=== PATIENT | male | born 1930 | race African-American/Black ===

== ENCOUNTER 2018-10-20 19:20 | Inpatient (IN) ==
[2018-10-20] MEDS ORDERED: CARDIZEM IV ONE (19:36)
[2018-10-20] MEDS ORDERED: DUONEB (A & A) INH ONE (19:37)
[2018-10-20] MEDS ORDERED: CARDIZEM 125 MG in NS 100 ML IV SCH (19:45)
[2018-10-20 19:56] LABS: BASO# 0.01 X1000 (0.0-0.2); BASO% 0.2 % (0.0-0.8); EOS# 0.04 X1000 (0.0-0.7); EOS% 0.7 % (0.0-10.0); HEMATOCRIT 34.9 % (42.0-52.0); HEMOGLOBIN 11.2 g/dL (14.0-18.0); IMM GRAN# 0.02 X1000 (0.0-0.04); IMM GRAN% 0.3 % (0.0-0.5); LYMPH# 0.67 X1000 (1.2-3.4); LYMPH% 11.4 % (20.5-51.1); MCHC 32.1 g/dL (33-37); MCV 99.7 FL (81-99); MONO# 0.76 X1000 (0.11-0.59); MONO% 12.9 % (1.7-9.3); MPV 10.2 FL (7.4-10.4); NEUT# 4.38 X1000 (1.4-6.5); NEUT% 74.5 % (42.2-75.2); PLT 201 X1000 (130-400); RDW 15.2 % (11.5-14.5); WBC 5.88 X1000 (4.8-10.8)
[2018-10-20 20:04] LABS: INR 1.12; PROTIME 15.3 Seconds (11.0-16.0)
[2018-10-20 20:05] LABS: ALLEN TEST YES; BE 1.9 mmoll (-3.0-3.0); BLOOD TYPE ARTERIAL; HCO3-(ACT) 26.4 mmoll (20.0-26.0); METHB 1.4 % (0.0-1.5); O2(CT) 15.1 mL/dL (15.0-23.0); O2HB 95.8 % (95.0-99.0); PCO2(98.6) 36 mmHg (35-45); PO2(98.6) 99 mmHg (60-100); SAMPLE BLOOD; SAO2 99.5 % (95.0-100.0); THB 11.1 g/dL (11.5-17.4); pH(98.6) 7.46 (7.35-7.45)
[2018-10-20 20:06] LABS: MODALITY CANNULA
[2018-10-20 20:16] LABS: AGAP 14; ALB/GLOB RATIO 0.9; ALBUMIN 3.5 g/dL (3.5-5.0); ALKALINE PHOSPHATASE 106 U/L (32-122); BUN 16 mg/dL (8-22); CHLORIDE 105 mmol/L (98-107); CK PROFILE 120 U/L (24-204); COSMO 291; CREATININE 1.3 mg/dL (0.7-1.2); ESTIMATED GFR > 60; GLUCOSE 161 mg/dL (70-104); GOT 23 U/L (10-34); GPT 12 U/L (10-44); POTASSIUM 3.5 mmol/L (3.5-5.1); SODIUM 144 mmol/L (136-145); TCO2 25 mmol/L (25-35); TOTAL BILIRUBIN 0.74 mg/dL (0.20-1.00); TOTAL PROTEIN 7.2 g/dL (6.3-8.3)
--- NOTE | 2018-10-20 20:41 | Diag Imaging Result Doc PS360 ---
CHEST-PORTABLE - 10/20/2018 INDICATION: CP/SOB COMPARISON: 08/20/2018 FINDINGS: Stable dense opacification of the right lung apex, with the appearance of a mass. There is stable cardiomegaly and significant pulmonary vascular congestion. There is slight worsening in the hazy background interstitial pulmonary edema. No pneumothorax or large pleural effusion. IMPRESSION: Slight worsening in the hazy pulmonary edema. Electronically signed by Lucas Us 10/20/2018 8:39 PM
[2018-10-20] MEDS ORDERED: LASIX IV ONE (21:40)
[2018-10-20 21:55] LABS: URINE SOURCE CLEAN CATCH
[2018-10-20] MEDS ORDERED: TYLENOL PO ONE (21:58)
[2018-10-20 22:12] LABS: BILIRUBIN URINE NEGATIVE (NEGATIVE); BLOOD URINE SMALL (NEGATIVE); COLOR YELLOW; GLUCOSE URINE TRACE mg/dL (NEGATIVE); KETONE URINE NEGATIVE (NEGATIVE); LEUKOCYTES URINE NEGATIVE (NEGATIVE); NITRITE URINE NEGATIVE (NEGATIVE); PH URINE 6.5; PROTEIN URINE 200 mg/dL (NEGATIVE); SP GRAVITY URINE 1.017; TURBIDITY URINE CLEAR (CLEAR); UR EPITHELIAL CELLS <10 /HPF (<10); URINE BACTERIA NEGATIVE /HPF; URINE RBC <10 /HPF (<10); URINE WBC <10 /HPF (<10); UROBILINOGEN URINE NORMAL (NORMAL)
[2018-10-20] MEDS ORDERED: CARDIZEM PO ONE (22:21)
--- NOTE | 2018-10-20 22:38 | PROVIDER DOCUMENTATION ---
This chart was entered by Kristian Alvarado Scribe, acting as scribe for Stanton Perez MD. HPI-Respiratory General - General Stated Complaint: CHEST PAIN Time Seen by Provider: 10/20/18 19:32 Source: patient Allergies/Adverse Reactions: Patient Allergies Allergy/AdvReac Type Severity Reaction Status Date / Time No Known Allergies Allergy Verified 08/20/18 10:41 Home Medications: Home Medication List Medication Instructions Recorded Confirmed Last Taken Type Apixaban [Eliquis] 2.5 mg PO BID 10/08/17 10/20/18 05/27/18 21:00 History Cilostazol 100 mg PO BID 10/08/17 10/20/18 01/31/18 10:00 History Pantoprazole [Protonix] 40 mg PO DAILY@0700 10/08/17 10/20/18 05/27/18 09:00 History Simvastatin 20 mg PO HS 10/08/17 10/20/18 05/27/18 21:00 History Losartan [Cozaar] 50 mg PO BID tablet 04/27/18 10/20/18 05/27/18 21:00 Rx Zinc Sulfate 220 mg PO BID capsule 04/27/18 10/20/18 05/27/18 21:00 Rx Furosemide [Lasix] 10 mg PO DAILY 08/20/18 10/20/18 Unknown History Isosorbide Mononitrate [Isosorbide 30 mg PO BID 08/20/18 10/20/18 Unknown History Mononitrate ER] Metoprolol Tartrate 25 mg PO DAILY 08/20/18 10/20/18 Unknown History Apixaban [Eliquis] 2.5 mg PO BID #60 tab 10/20/18 Unknown Rx Cilostazol 100 mg PO BID #60 tab 10/20/18 Unknown Rx Diltiazem C.d. [Cardizem C.d] 240 mg PO DAILY #30 cap 10/20/18 Unknown Rx Furosemide [Lasix] 40 mg PO DAILY #30 tab 10/20/18 Unknown Rx Guaifenesin/Dextromethorphan 1 each PO DAILY 10/20/18 10/20/18 Unknown History [Mucinex Dm ER 600-30 mg Tablet] Losartan [Cozaar] 50 mg PO BID #60 tab 10/20/18 Unknown Rx Pantoprazole [Protonix] 40 mg PO DAILY@0700 #30 tab 10/20/18 Unknown Rx Phenylephrine/Dm/Acetaminop/GG 180 ml PO Q4-6H PRN PRN 10/20/18 10/20/18 Unknown History [Mucinex Fast-Max Cold-Flu Liq] - History of Present Illness-Resp Nature of Presenting Problem: Pt is a 88 y/o M presents to the ED with SOB for a couple weeks that worsened today. He reports home O2 2L. He says his chest pain is across his chest and feels like pressure. EMS reports a hx of lung cancer but says it is in remission. Quality of Pain: reports: pressure Severity in ED: reports: severe Onset/Duration: reports: other (2 weeks) Timing: reports: getting worse Cough Quality/Degree: reports: mild, dry cough Current Respiratory Medication Therapy: Initiated see nurses note Modifying Factors: improves with: nothing Associated Symptoms: reports: hurts to breathe, hyperventilating, shortness of breath. denies: cough, dizziness, fever/chills Similar Symptoms Previously?: No Recently seen or treated by another doctor?: No Review of Systems - Adult - REVIEW OF SYSTEMS - ADULT Constitutional: denies: chills, fever Eyes: reports: no symptoms reported Ears, Nose, Mouth & Throat: reports: no symptoms reported Cardiovascular: reports: chest pain, edema. denies: palpitations Respiratory: reports: cough, shortness of breath, wheezing Gastrointestinal: denies: nausea, vomiting Genitourinary: denies: dysuria, discharge Musculoskeletal: denies: back pain, neck pain Integumentary: reports: no symptoms reported Neurological: denies: dizziness/vertigo, headache/migraines, slurred speech Psychiatric: reports: no symptoms reported Endocrine: reports: no symptoms reported Hematologic/Lymphatic: reports: no symptoms reported Allergic/Immunologic: reports: no symptoms reported All Other Systems: Reviewed and Negative Past History - Adult - PAST MEDICAL HISTORY-ADULT Review of Records: reports: Old Records Reviewed, Nursing Assessment Review, Medications Reviewed Major Childhood Illnesses: reports: denies history Cardiovascular: reports: A-Fib, CAD, CHF, HTN, hyperlipidemia, PAD Respiratory: reports: cancer Gastrointestinal: reports: denies history Obstetrical/Gynecological: reports: denies history Genitourinary: reports: denies history Musculoskeletal: reports: arthritis, other (gout) Neurological: reports: CVA Psychiatric: reports: denies history Endocrine/Immune: reports: denies history Other Conditions: reports: denies history - PRIOR SURGERIES/PROCEDURES Surgical/Procedure History: reports: cardiac stent, orthopedic (extremity) ( right foot), other (Stents) - PRIOR HOSPITALIZATIONS Prior Hospitalizations: reports: none - IMMUNIZATION STATUS Childhood Immunizations: See Nurse Assessment Flu Vaccine: See Nurse Assessment - FAMILY HISTORY Family History: reviewed, not pertinent - SOCIAL HISTORY Smoking: non-smoker (pt quits smoking 23 years ago but smoke for 55 years.) Substance Use: none/never Living Situation: family Physical Exam-General - PHYSICAL EXAM-ADULT Initial Vital Signs Reviewed: Yes - CONSTITUTIONAL General Appearance: alert, mild distress. negative: appears well (unable to complete sentences. ill in appearance) - EYES Eyes: PERRL/EOMI, pink conjunctivae - HEAD, EARS, NOSE, MOUTH & THROAT HENMT: moist mucous membranes, normal ENT inspection - NECK Neck: full range of motion, supple, other (distended neck veins) - RESPIRATORY Respiratory: accessory muscle use, wheezing, increased rate - CARDIOVASCULAR Cardiovascular: normal peripheral pulses. negative: regular rate, rhythm (A-fib ) - GASTROINTESTINAL (ABDOMEN) Abdominal Exam: normal bowel sounds, non tender, soft - MUSCULOSKELETAL Back Exam: normal inspection, no CVA tenderness, no vertebral tenderness Extremity: normal range of motion, pedal edema (2+) - SKIN Integumentary: normal color, normal turgor, warm/dry - NEUROLOGIC Neurologic: grossly normal, no motor/sensory deficits - PSYCHIATRIC Psych/Mental Status: normal mood/affect, normal thought content, normal thought process, oriented x 3 Progress - PLAN OF CARE/RESULTS Progress/Plan/Lab Results: Vital Signs - 8 hr 10/20/18 19:15 10/20/18 19:26 10/20/18 19:27 Temperature 101.2 F H Pulse Rate 123 H 106 H 112 H Respiratory Rate 30 H 12 24 Blood Pressure 140/106 162/108 O2 Sat by Pulse Oximetry 100 94 L 10/20/18 19:31 10/20/18 19:32 10/20/18 19:34 Temperature 101.6 F H Pulse Rate 125 H 114 H 122 H Respiratory Rate 33 H 24 30 H Blood Pressure 140/106 162/108 O2 Sat by Pulse Oximetry 99 97 10/20/18 19:40 10/20/18 19:46 10/20/18 19:50 Temperature Pulse Rate 115 H 115 H 85 Respiratory Rate 24 26 H 26 H Blood Pressure 151/97 O2 Sat by Pulse Oximetry 10/20/18 20:00 10/20/18 20:02 10/20/18 20:07 Temperature Pulse Rate 90 89 122 H Respiratory Rate 23 Blood Pressure 147/113 O2 Sat by Pulse Oximetry 100 100 98 10/20/18 20:10 10/20/18 20:16 10/20/18 20:20 Temperature Pulse Rate 107 H 107 H 103 H Respiratory Rate Blood Pressure 167/108 O2 Sat by Pulse Oximetry 10/20/18 20:30 10/20/18 20:31 10/20/18 20:40 Temperature Pulse Rate 113 H 110 H 104 H Respiratory Rate 28 H 27 H 20 Blood Pressure 181/100 O2 Sat by Pulse Oximetry 92 L 97 93 L 10/20/18 20:50 10/20/18 21:00 10/20/18 21:01 Temperature Pulse Rate 110 H 114 H 110 H Respiratory Rate 28 H 22 30 H Blood Pressure 175/101 O2 Sat by Pulse Oximetry 99 92 L 96 10/20/18 21:10 10/20/18 21:20 10/20/18 21:21 Temperature Pulse Rate 109 H 114 H 116 H Respiratory Rate 20 24 24 Blood Pressure 180/106 O2 Sat by Pulse Oximetry 100 10/20/18 21:30 10/20/18 21:31 10/20/18 21:40 Temperature Pulse Rate 110 H 115 H 102 H Respiratory Rate 30 H 27 H 25 H Blood Pressure 152/89 O2 Sat by Pulse Oximetry 98 98 10/20/18 21:50 Temperature Pulse Rate 98 H Respiratory Rate 25 H Blood Pressure O2 Sat by Pulse Oximetry 90 L Laboratory Results - last 24 hr 10/20/18 10/20/18 10/20/18 19:30 19:30 19:30 WBC 5.88 RBC 3.50 L Hgb 11.2 L Hct 34.9 L MCV 99.7 H MCH 32.0 H MCHC 32.1 L RDW Std Deviation 15.2 H Plt Count 201 MPV 10.2 Immature Gran % (Auto) 0.3 Neut % (Auto) 74.5 Lymph % (Auto) 11.4 L [place] % (Auto) 12.9 H Eos % (Auto) 0.7 Baso % (Auto) 0.2 Immature Gran # (Auto) 0.02 Neut # (Auto) 4.38 Lymph # (Auto) 0.67 L [place] # (Auto) 0.76 H Eos # (Auto) 0.04 Baso # (Auto) 0.01 PT 15.3 INR 1.12 PTT (Actin FS) 36.0 Specimen Type Sample Site pH pCO2 pO2 HCO3 Base Excess Oxyhemoglobin ABG O2 Sat (Calculated) ABG O2 Saturation ABG Carboxyhemoglobin ABG Methemoglobin [place] Test A-a O2 Difference Total Hemoglobin Lactate Liter Flow Blood Gas Modality FiO2 % Sodium 144 Potassium 3.5 Chloride 105 Carbon Dioxide 25 Anion Gap 14 BUN 16 Creatinine 1.3 H Estimated GFR/1.73 m2 > 60 BUN/Creatinine Ratio 12 Glucose 161 H Calculated Osmolality 291 Calcium 9.0 Magnesium Total Bilirubin 0.74 AST 23 ALT 12 Alkaline Phosphatase 106 Creatine Kinase 120 Troponin T [id number] Pept Total Protein 7.2 Albumin 3.5 Globulin 3.7 Albumin/Globulin Ratio 0.9 Plasma Lactate Urine Source Urine Color Urine Turbidity Urine pH Ur Specific [place] Urine Protein Ur Glucose (Stick) Ur Ketones (Stick) Urine Blood Urine Nitrite Urine Bilirubin Urobilinogen Dipstick Urine Leukocytes Urine WBC (Auto) Urine RBC (Auto) U Epithel Cells (Auto) Urine Bacteria (Auto) 10/20/18 10/20/18 10/20/18 19:30 19:30 19:30 WBC RBC Hgb Hct MCV MCH MCHC RDW Std Deviation Plt Count MPV Immature Gran % (Auto) Neut % (Auto) Lymph % (Auto) [place] % (Auto) Eos % (Auto) Baso % (Auto) Immature Gran # (Auto) Neut # (Auto) Lymph # (Auto) [place] # (Auto) Eos # (Auto) Baso # (Auto) PT INR PTT (Actin FS) Specimen Type Sample Site pH pCO2 pO2 HCO3 Base Excess Oxyhemoglobin ABG O2 Sat (Calculated) ABG O2 Saturation ABG Carboxyhemoglobin ABG Methemoglobin [place] Test A-a O2 Difference Total Hemoglobin Lactate Liter Flow Blood Gas Modality FiO2 % Sodium Potassium Chloride Carbon Dioxide Anion Gap BUN Creatinine Estimated GFR/1.73 m2 BUN/Creatinine Ratio Glucose Calculated Osmolality Calcium Magnesium 1.5 Total Bilirubin AST ALT Alkaline Phosphatase Creatine Kinase Troponin T 0.066 [id number]-[id number] Pept 3128 H Total Protein Albumin Globulin Albumin/Globulin Ratio Plasma Lactate Urine Source Urine Color Urine Turbidity Urine pH Ur Specific [place] Urine Protein Ur Glucose (Stick) Ur Ketones (Stick) Urine Blood Urine Nitrite Urine Bilirubin Urobilinogen Dipstick Urine Leukocytes Urine WBC (Auto) Urine RBC (Auto) U Epithel Cells (Auto) Urine Bacteria (Auto) 10/20/18 10/20/18 10/20/18 19:35 19:55 21:21 WBC RBC Hgb Hct MCV MCH MCHC RDW Std Deviation Plt Count MPV Immature Gran % (Auto) Neut % (Auto) Lymph % (Auto) [place] % (Auto) Eos % (Auto) Baso % (Auto) Immature Gran # (Auto) Neut # (Auto) Lymph # (Auto) [place] # (Auto) Eos # (Auto) Baso # (Auto) PT INR PTT (Actin FS) Specimen Type ARTERIAL Sample Site R RADIAL pH 7.46 H pCO2 36 pO2 99 HCO3 26.4 H Base Excess 1.9 Oxyhemoglobin 95.8 ABG O2 Sat (Calculated) 15.1 ABG O2 Saturation 99.5 ABG Carboxyhemoglobin 2.30 ABG Methemoglobin 1.4 [place] Test YES A-a O2 Difference 56.0 Total Hemoglobin 11.1 L Lactate 1.40 Liter Flow 2.0 Blood Gas Modality CANNULA FiO2 % 28.0 Sodium Potassium Chloride Carbon Dioxide Anion Gap BUN Creatinine Estimated GFR/1.73 m2 BUN/Creatinine Ratio Glucose Calculated Osmolality Calcium Magnesium Total Bilirubin AST ALT Alkaline Phosphatase Creatine Kinase Troponin T Lxr-S-Hxejxrgclqc Pept Total Protein Albumin Globulin Albumin/Globulin Ratio Plasma Lactate 1.4 Urine Source CLEAN CATCH Urine Color YELLOW Urine Turbidity CLEAR Urine pH 6.5 Ur Specific [place] 1.017 Urine Protein 200 A Ur Glucose (Stick) TRACE Ur Ketones (Stick) NEGATIVE Urine Blood SMALL A Urine Nitrite NEGATIVE Urine Bilirubin NEGATIVE Urobilinogen Dipstick NORMAL Urine Leukocytes NEGATIVE Urine WBC (Auto) <10 Urine RBC (Auto) <10 U Epithel Cells (Auto) <10 Urine Bacteria (Auto) NEGATIVE Orders Category Date Time Status Cardiac Monitoring DIRECTED Care 10/20/18 19:36 Active IV Insertion ORDERED Care 10/20/18 19:36 Completed Notify MD of + Sepsis Screen NOW Care 10/20/18 19:36 Active Notify Physician As Ordered Care 10/20/18 19:36 Active CHEST-PORTABLE [RAD] Stat Exams 10/20/18 19:43 Completed ABG [RESP] Routine Lab 10/20/18 19:55 Completed BLOOD CULTURE [BLDCUL] Stat Lab 10/20/18 19:35 Results CBC WITH DIFF [HEME] Stat Lab 10/20/18 19:30 Completed CK PROFILE [SP CHEM] Stat Lab 10/20/18 19:30 Completed COMPREHENSIVE METABOLIC PANEL [CHEM] Stat Lab 10/20/18 19:30 Completed INFLUENZA SCREEN A/B Stat Lab 10/20/18 19:35 Received LACTATE, PLASMA [CHEM] Lab 10/20/18 19:35 Completed MAGNESIUM [CHEM] Stat Lab 10/20/18 19:30 Completed PROTIME WITH INR [COAG] Stat Lab 10/20/18 19:30 Completed PTT [COAG] Stat Lab 10/20/18 19:30 Completed TROPONIN T Stat Lab 10/20/18 19:30 Completed URINALYSIS W/POSS RFLX CULT [URINALYSIS] Stat Lab 10/20/18 21:21 Completed pro-bnp [PRO B-NATRIURETIC PEPTIDE] Stat Lab 10/20/18 19:30 Completed 0.9% Sodium Chloride Inj [Ns] 100 ml Med 10/20/18 19:45 Active Diltiazem [Cardizem] 125 mg IV As Directed Acetaminophen [Tylenol] Med 10/20/18 21:58 Discontinued 650 mg PO NOW ONE Albuterol 2.5MG/Ipratrop 0.5MG [Duoneb (A & A)] Med 10/20/18 19:37 Discontinued 3 ml INH NOW ONE Diltiazem [Cardizem] Med 10/20/18 19:36 Discontinued 20 mg IV NOW ONE Furosemide [Lasix] Med 10/20/18 21:40 Discontinued 40 mg IV NOW ONE Aerosol Treatments Routine Oth 10/20/18 19:38 Completed Aerosol Treatments Stat Oth 10/20/18 19:38 Completed Oxygen Device Stat Oth 10/20/18 19:36 Completed Result Diagrams: 10/20/18 19:30 10/20/18 19:30 - EKG 1 Time of EKG reading by physician:: 19:23 EKG Read and Signed by:: Stanton Perez EKG Interpretation (*Must complete 3 of following elements*): Abnormal Rate: 130 Rhythm: A-fib wit RVR - XRAY 1 XRAY Study: Chest Impression: Abnormal ( CHEST-PORTABLE - 10/20/2018 INDICATION: CP/SOB COMPARISON: 08/20/2018 FINDINGS: Stable dense opacification of the right lung apex, with the appearance of a mass. There is stable cardiomegaly and significant pulmonary vascular congestion. There is slight worsening in the hazy background interstitial pulmonary edema. No pneumothorax or large pleural effusion. IMPRESSION: Slight worsening in the hazy pulmonary edema. Electronically signed by Lucas Us 10/20/2018 8:39 PM [id number]) Comparison with other Films: changes noted Departure - Departure Date of Disposition Decision: 10/20/18 Time of Disposition Decision: 21:41 DIAGNOSIS: Atrial fibrillation, Fever, Lung cancer Disposition: ADMITTED INPATIENT 09 Certified Medical Emergency: Emergent Condition: Stable Prescriptions: Diltiazem C.d. [Cardizem C.d] 240 mg PO DAILY #30 cap Cilostazol 100 mg PO BID #60 tab Losartan [Cozaar] 50 mg PO BID #60 tab Apixaban [Eliquis] 2.5 mg PO BID #60 tab Furosemide [Lasix] 40 mg PO DAILY #30 tab Pantoprazole [Protonix] 40 mg PO DAILY@0700 #30 tab Referrals and Follow-Ups: Som Blake MD [Primary Care Provider] - - Critical Care Note This patient required my direct & personal management of CC.: No Attestation - Physician/ CRISTI Attestation Patient care was provided by Advanced Practice Provider:: No The physician spent face to face time with patient:: Yes Advanced Practice Provider documentation review:: Supervising physician onsite and consulted in the evaluation and care of this patient. The physician did have a face to face encounter with the patient. This chart was documented by the indicated scribe, (Kristian Alvarado Scribe) and accurately reflects the services I performed and decisions made by me, Stanton Perez MD, as attested by the provider's signature.
[2018-10-20] MEDS ORDERED: TAMIFLU PO ONE (22:45)
[2018-10-21] MEDS ORDERED: TESSALON PO PRN (02:54)
[2018-10-21] MEDS ORDERED: ZOFRAN IV PRN ×2 (02:54→04:25)
[2018-10-21 03:15] LABS: BASO# 0.01 X1000 (0.0-0.2); BASO% 0.2 % (0.0-0.8); EOS# 0.02 X1000 (0.0-0.7); EOS% 0.4 % (0.0-10.0); HEMATOCRIT 34.9 % (42.0-52.0); HEMOGLOBIN 11.2 g/dL (14.0-18.0); LYMPH# 0.65 X1000 (1.2-3.4); LYMPH% 12.4 % (20.5-51.1); MCH 32.1 PG (27-31); MCHC 32.1 g/dL (33-37); MONO# 0.63 X1000 (0.11-0.59); MPV 10.1 FL (7.4-10.4); NEUT# 3.92 X1000 (1.4-6.5); PLT 211 X1000 (130-400); RBC 3.49 XMIL (4.7-6.1); RDW 15.3 % (11.5-14.5); WBC 5.23 X1000 (4.8-10.8)
[2018-10-21] MEDS ORDERED: ROBITUSSIN-DM PO PRN (03:31)
[2018-10-21 03:34] LABS: AGAP 13; BUN 16 mg/dL (8-22); CALCIUM 9.3 mg/dL (8.8-10.2); CHLORIDE 102 mmol/L (98-107); COSMO 283; CREATININE 1.3 mg/dL (0.7-1.2); ESTIMATED GFR > 60; GLUCOSE 112 mg/dL (70-104); MAGNESIUM 1.6 mg/dL (1.5-2.7); POTASSIUM 3.2 mmol/L (3.5-5.1); SODIUM 141 mmol/L (136-145); TCO2 26 mmol/L (25-35)
[2018-10-21] MEDS: DUONEB (A & A) INH SCH ×6 (04:05→23:00)
[2018-10-21] MEDS ORDERED: KLOR-CON PO ONE (04:21)
[2018-10-21] MEDS ORDERED: NS NEB INH SCH (04:45)
[2018-10-21] MEDS: PROTONIX PO SCH (06:38)
--- NOTE | 2018-10-21 07:15 | EKG Report ---
Test Performed on : 10/21/2018 07:01:02 AM Test Reason : A-Fib Blood Pressure : / mmHG Vent. Rate : 081 BPM Atrial Rate : 288 BPM P-R Int : 000 ms QRS Dur : 090 ms QT Int : 416 ms P-R-T Axes : 000 065 032 degrees QTc Int : 483 ms Atrial fibrillation. Prolonged QT Abnormal ECG When compared with ECG of 20-OCT-2018 19:23, (Unconfirmed) Vent. rate has decreased BY 49 BPM Confirmed by Lou RICHARDSON, Som Sepulveda ([id number]) on 10/22/2018 6:48:47 AM
--- NOTE | 2018-10-21 07:43 | EKG Report ---
Test Performed on : 10/20/2018 7:23:33 PM Test Reason : CP Blood Pressure : / mmHG Vent. Rate : 130 BPM Atrial Rate : 122 BPM P-R Int : 000 ms QRS Dur : 088 ms QT Int : 338 ms P-R-T Axes : 000 071 039 degrees QTc Int : 497 ms Atrial fibrillation. with rapid ventricular response. with premature ventricular or aberrantly conduc corey complexes. Abnormal ECG When compared with ECG of 20-AUG-2018 11:37, (Unconfirmed) Vent. rate has increased BY 46 BPM Unconfirmed Result
--- NOTE | 2018-10-21 07:45 | HISTORY AND PHYSICAL ---
PRIMARY CARE PROVIDER: Previously Dr. Blake. The patient is trying to become a new patient of Dr. Sandra though has not seen him for his first appointment as of yet. DIRECTOR TRADE: Dr. Ray. CHIEF COMPLAINT: Shortness of breath. HISTORY OF PRESENT ILLNESS: Mr. Leong is an 88-year-old male with a past medical history most notable for chronic respiratory failure with hypoxemia secondary to COPD on continuous home oxygen per nasal cannula at 2 liters. He also has a history of right lung cancer status post radiation and chemotherapy, though his son states that due to increase in the right upper lung mass that Dr. Galaviz did mention wanting to start the patient back on chemotherapy again. He also has a history of congestive heart failure, coronary artery disease, chronic atrial fibrillation, and renal insufficiency. The patient states that for approximately 2 weeks now that he has had shortness of breath, productive cough with brown sputum. He also reports that he has had sinus congestion, drainage, and headache as well. He is reporting some chest pain that hurts all across his chest. The patient states that this is intermittent and comes on at any time despite whether he is exerting himself or not, though he does report that it worsens with a cough. We asked the patient if it was radiating anywhere else. He says "it radiates all over." The patient reports that he is able to lie flat to sleep, though has been having some paroxysmal nocturnal dyspnea. He has also had worsening edema in his bilateral lower extremities. He denies any abdominal pain though he did have one vomiting episode in the ER after his arrival. His son at bedside states that it looks like phlegm or sputum that he had vomited up. He denies any diarrhea. The patient's last bowel movement was this morning. There is no known hematemesis, hematochezia, or melena. The patient does report urinary frequency and dysuria. He also has been having fever and body aches. Unfortunately at this time due to a change in the patient's medical insurance, he was previously a Dr. Blake patient though he had to be switched over to Dr. Foreign Ibanez. Family states that they were unable to obtain an appointment with him and have now filled out preliminary paperwork to become Dr. Sandra's patient though have not been able to get an appointment at this time. Secondary to this, they report that the patient has gone awhile and has been out of many of his medications including his heart medications such as Lasix. His son also states that this is the reason why they have not been able to get in to see Dr. Galaviz for possible initiation of chemotherapy due to they did need a referral from his new physician for this. We will obtain pediatric social worker assistance with trying to get the patient a followup appointment with a primary care physician upon discharge as well as getting him a referral to Dr. Galaviz. Upon evaluation in the ER, the patient's initial vital signs were temperature 101.2, heart rate 123, respirations 30, blood pressure 140/106, oxygen saturation 100% on nasal cannula at 3 liters. The patient was noted to be slightly dyspneic and tachypneic upon my examination though he was in no respiratory distress, he was able to speak in full sentences. He was noted to have wheezing upon initial arrival to the ER though at the time of my examination, his wheezing did improve, though he did have crackles in bilateral bases. He also did have JVD noted. He had 2+ pitting edema noted in bilateral lower extremities. Chest x-ray in the ER did show slight worsening and hazy pulmonary edema. His EKG did show that he was in atrial fibrillation with RVR. He had no leukocytosis noted though he was positive for influenza A. In the ER, the patient was given Cardizem IV push and placed on a Cardizem drip. He was also given a dose of 40 mg of Lasix IV and has had positive response to this with 1400 mL of urine output since the time of administration. Though the patient did report some urinary symptoms, his urinalysis was negative for any signs of infection. The patient will be admitted inpatient for further treatment and evaluation. REVIEW OF SYSTEMS: A 14-point review of systems was conducted with the patient and all were negative except for pertinent positives mentioned in above HPI. PAST MEDICAL HISTORY: 1. Chronic respiratory failure with hypoxemia secondary to COPD on continuous home oxygen with nasal cannula at 2 liters. 2. Chronic congestive heart failure secondary to diastolic dysfunction. 3. Chronic atrial fibrillation on anticoagulation therapy with Eliquis. 4. Ischemic cardiomyopathy with mild to moderate left ventricular dysfunction. The patient did have a cardiac stent placed to the right coronary artery in 2003. 5. Gastroesophageal reflux disease. 6. Peripheral vascular disease. 7. Arthritis. PAST SURGICAL HISTORY: 1. Left foot surgery. 2. Cardiac stent placement. 3. Status post right carotid endarterectomy. SOCIAL HISTORY: The patient is a former smoker. He did quit smoking 15 years ago. There is no known alcohol or illicit drug use. His son was present at bedside during our examination. FAMILY HISTORY: Positive for his mother having history of heart disease. ALLERGIES: The patient has no known allergies. HOME MEDICATIONS: 1. Eliquis 2.5 mg p.o. b.i.d. 2. Cilostazol 100 mg p.o. b.i.d. 3. Losartan 50 mg b.i.d. 4. Protonix 40 mg p.o. daily. 5. Simvastatin 20 mg p.o. nightly. 6. Zinc Sulfate 220 mg p.o. b.i.d. The following medicines do need verification. 1. The patient's Lasix dose we believe is 10 mg p.o. daily though this has not been verified. 2. Also the patient's isosorbide mononitrate extended release dose strength and how many times per day needs to be verified. 3. His metoprolol tartrate needs to be verified whether or not it is immediate or extended release. We will try to contact the patient's son and/or pharmacy to verify these medications. DIAGNOSTIC DATA/LABORATORY RESULTS: White blood cell count 5880, hemoglobin 11.2, hematocrit 34.9, platelet count 201. PT 15.3, INR 1.12, PTT 36. Sodium 144, potassium 3.5, chloride 104, serum bicarb 25, BUN 16, creatinine 1.3. GFR is greater than 60. Glucose 161. Hemoglobin A1c was 6. Calcium 9, magnesium 1.5. Liver function tests are within normal limits. CK 120, troponin 0.066, ProBNP 3128. Plasma lactate was 1.4. Arterial blood gases were obtained on nasal cannula at 28% FIO2 with a pH of 7.46, pCO2 36, pO2 99, HCO3 26.4, base excess of 1.9, and O2 saturation of 99.5. Influenza screen was positive for influenza A. Urinalysis was obtained, was positive for protein and a small of blood though was negative for glucose, ketones, nitrites, leukocytes, white blood cells or bacteria. PHYSICAL EXAMINATION: VITAL SIGNS: Temperature 98.2, heart rate 94, respirations 23, blood pressure 155/89, oxygen saturation 96% nasal cannula at 2 liters. GENERAL: Mr. Leong is a very pleasant 88-year-old male. He was resting on the ER stretcher. He was in no acute distress. He still was reporting some slight dyspnea and was slightly tachypneic upon my examination. HEENT: Head is atraumatic, normocephalic. Pupils are equal, round and reactive to light, 3 mm bilaterally and brisk. Oral mucosa is moist. Oropharynx clear. NECK: Supple. Trachea midline. There was JVD noted upon examination. CARDIOVASCULAR: The patient has S1 and S2 present. There was a systolic murmur noted. There were no other gallops or rubs appreciated. Slightly tachycardia rate which is irregularly irregular. PULMONARY: The patient has symmetrical chest expansion bilaterally though he did have crackles noted in bilateral bases. All other lung jacobs were clear at this time. ABDOMEN: Soft, nontender, nondistended. Bowel sounds were present in all four quadrants and were normoactive. EXTREMITIES: No cyanosis noted. The patient did have 2+ pitting edema noted in bilateral extremities from just below his knees down bilaterally. Pulse, motor and sensory were intact in all extremities. Radial pulses and pedal pulses were 2+ bilaterally. INTEGUMENTARY: The patient's skin color is normal for his race. It was dry and intact. NEUROLOGIC: The patient is alert and oriented to person, place, time, and situation. There were no focal neurological deficits noted. ASSESSMENT AND PLAN: 1. Influenza A. For treatment of this, we have placed the patient with Tamiflu 75 mg p.o. b.i.d. for 5 days. We will continue to monitor his respiratory status closely. We will continue his oxygen therapy. Will order DuoNeb treatments as well. At this time, the patient is having fever, though has no leukocytosis noted. Chest x-ray did not note a pneumonia. There was significant pulmonary vascular congestion, hazy pulmonary edema. This is likely related to his congestive heart failure. Will continue to follow. 2. Atrial fibrillation with rapid ventricular response. The patient is on a Cardizem drip at this time. We will continue the series of cardiac enzymes. He has had an echocardiogram ordered for the morning as well as a repeat EKG. We have placed a consult with Cardiology. We will await their evaluation and further recommendations for management. 3. Congestive heart failure exacerbation. This may be likely secondary to the patient being out of his medications and could have been exacerbated by his atrial fibrillation. The patient did receive 40 mg of Lasix IV in the ER and did have a positive response of 1400 mL of urine output so far. At this time, his daily Lasix dose has not been verified, so we think it was 10 mg daily p.o. Given this, we have placed the patient on Lasix 20 mg IV daily. We will monitor his response. We have ordered echocardiogram. Cardiac enzymes as mentioned above. We will await Cardiology's evaluation and further recommendations for management. 4. Right lung cancer. We have placed a consult with Dr. Galaviz. The patient did mention that he was recently told by Dr. Galaviz that he did have increase in the size of his right upper lung mass and was reportedly supposed to be started back on chemotherapy though was needing a new physician referral from his new primary care doctor. We will await Oncology's evaluation and further recommendations for management. 5. Chronic obstructive pulmonary disease on continuous oxygen dependency with nasal cannula at 2 liters. We will continue this. We will continue with DuoNeb treatments, Tussionex, incentive spirometry and encouragement to turn cough and deep breathe. We will continue to follow. 6. Coronary artery disease status post placement of coronary artery stent. 7. Hypertension. Will continue his Cozaar. 8. Hyperlipidemia. Will continue his simvastatin. 9. Deep venous thrombosis prophylaxis will be provided with his previously prescribed anticoagulation of Eliquis. The patient has been placed on CIC with telemetry. We will do vital signs q.4 hours, daily weights. Will do strict intake and output. He will be on droplet isolation precautions given that he is positive for influenza A. He will be on a heart healthy diet. We will repeat a CBC, BMP, magnesium and cardiac enzymes. Further orders and recommendations pending hospital course, diagnostic studies, and physician evaluation. Dictated by ZOYA Villegas for Artem Vanegas MD cc: Artem Vanegas MD
[2018-10-21] MEDS ORDERED: LASIX IV SCH (09:00)
[2018-10-21] MEDS ORDERED: PLETAL PO SCH (09:00)
[2018-10-21] MEDS: ELIQUIS PO SCH ×2 (09:00→22:01)
[2018-10-21] MEDS ORDERED: MUCINEX PO SCH (09:00)
[2018-10-21] MEDS: COZAAR PO SCH ×2 (09:00→22:02)
[2018-10-21] MEDS: TAMIFLU PO SCH ×2 (10:01→22:01)
--- NOTE | 2018-10-21 12:59 | HEMO/ONC CONSULTATION ---
DATE: 10/21/2018 CHIEF COMPLAINT: We have been consulted for further management of patient's lung cancer. HISTORY OF PRESENT ILLNESS: Mr. Leong is an 88-year-old male that presented to the emergency department with increasing shortness of breath. The patient has recently changed his insurance, has been unable to get in to see his primary care provider and has been off most of his medications. The patient also complains of having fever, body aches, and chills , productive cough with brown sputum, sinus congestion and drainage and headache, some increased amounts of chest pain. The patient also has increasing edema to his bilateral lower extremities. The patient said that all of these symptoms have just progressively continued to get worse. While in the emergency department, the patient was found to have a temperature of 101.2, heart rate of 123, respirations were increased, as well. The patient was also found to be positive for influenza A. He was in atrial fibrillation with RVR. He was admitted at that time for further evaluation and treatment. Mr. 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 His PET scan in August of 2018 did show progression of that right apical mass with worsening of the pleural based activity. The patient was supposed to be followed back up in the clinic but due to insurance problems , he has not been back to the clinic at this time for further evaluation. PAST MEDICAL HISTORY: 1. COPD with continuous oxygen. 2. Chronic congestive heart failure secondary to diastolic dysfunction. 3. Chronic atrial fibrillation. 4. Ischemic cardiomyopathy. 5. GERD. 6. Peripheral vascular disease. 7. Arthritis. PAST SURGICAL HISTORY: 1. Left foot surgery. 2. Cardiac stent placement. 3. Right carotid endarterectomy. SOCIAL HISTORY: He is a former smoker, quit smoking approximately 15 years ago. Denies any alcohol or illicit drug use. FAMILY HISTORY: History of heart disease. ALLERGIES: No known drug allergies. HOME MEDICATIONS: 1. Eliquis. 2. Cilostazol. 3. Losartan. 4. Potassium. 5. Simvastatin. 6. Zinc sulfate. 7. Lasix. 8. Mucinex DM ER. 9. Isosorbide mononitrate. 10. Cozaar. 11. Metoprolol. 12. Protonix. 13. Simvastatin. REVIEW OF SYSTEMS: Negative unless mentioned in the HPI. PHYSICAL EXAMINATION: Vital signs: His temperature was late yesterday evening. Heart rate now, though, is 88, respiratory rate 16, blood pressure 173/102, satting 97% on nasal cannula. General: The patient is awake, lying in bed, no acute distress noted. HEENT: Anicteric. Pupils are NASH. Mucous membranes are noted to be dry. Neck: Supple, trachea midline , no JVD noted. Lymph node survey: No palpable lymphadenopathy. Chest: Bilateral breath sounds with wheezing bilaterally. Cardiovascular: S1, S2, irregular rate and rhythm. Abdomen: Soft, nontender, bowel sounds present in all 4 quadrants. Skin: Warm, dry, and intact. Skin: No petechiae, rash, or cyanosis. Extremities: 2+ pitting edema to bilateral lower extremities. Neurological: Alert and oriented x3. No focal deficits noted. LABORATORY DATA: White blood cell count is 5.23, hemoglobin 11.2, hematocrit 34.9, platelets 211. Potassium 3.2, BUN 16, creatinine 1.3. RADIOLOGY RESULTS: Chest x-ray shows slight worsening in the hazy pulmonary edema. ASSESSMENT AND PLAN: 1. 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 Once the patient is improved and back to baseline we will get him back in the hospital as soon as possible for further evaluation and treatment. We will continue to monitor at this time. 2. Influenza A: Continue to Tamiflu as ordered. Continue nasal ipratropium. 3. Atrial fibrillation with RVR. Continue Cardizem drip as ordered. Continue recommendations per Cardiology and primary medical team. 4. Congestive heart failure without exacerbation: Continue recommendations per primary medical team and Cardiology. 5. Chronic obstructive pulmonary disease: Continue oxygen treatments as ordered per primary medical team. 6. Coronary artery disease. Continue recommendations per Cardiology. 7. Hypertension. 8. Hyperlipidemia. 9. DVT prophylaxis. Continue with Eliquis as ordered. Plan of care discussed with Dr. Galaviz. Dictated by ZOYA Scanlon for Semaj Galaviz MD cc: ZOYA Scanlon MD [facility]
[2018-10-21 13:39] LABS: CK INDEX 0.9 (0.0-2.5); CK-MB 2.65 ng/mL (0.0-5.0)
[2018-10-21] MEDS ORDERED: LASIX IV ONE (13:40)
--- NOTE | 2018-10-21 13:48 | PROGRESS NOTE ---
DATE: 10/21/2018 SUBJECTIVE: He is sitting up. He seems to be doing a little bit better. No major complaints. OBJECTIVE: Vital Signs: Heart rate is 88, respiratory rate 16,blood pressure is 173/122 that was at 6, he is 101.6. He is flu A positive. In any case the patient was admitted. Cardiovascular: Regular rate and rhythm. Pulmonary: Occasional wheeze. GI: Soft, nontender, nondistended. Bowel sounds are positive. LABS: White count 5, H and H 11 and 34, platelets 211. Potassium is 3.2, creatinine 1.3. PROBLEM LIST: 1. Atrial fibrillation with rapid ventricular response that seems to be rate controlled. I think we could probably convert him over to p.o. medications. His blood pressure is definitely stable. He is usually on 240 of Cardizem and metoprolol, so I think we are going to switch him back to Cardizem and adjust his medications. This may have all been just reactive to the flu. I believe Cardiology has been consulted. I would be surprised if they have not been. 2. Influenza A. He is on Tamiflu. We will continue to follow. 3. Congestive heart failure. Seems to be he has got some volume overload, but seems to be doing okay. He takes a very small dose of Lasix. We may need to bump that up a little bit. 4. Right lung cancer. Dr. Galaviz has been consulted. Family is specifically requesting him, but it looks like his midlevel has seen the patient and so is just waiting on Dr. Galaviz to come around. 5. Chronic obstructive pulmonary disease. We will have to be careful just with his heart rate control issues. In any case, we will continue to follow closely and work on trying to get him off the Cardizem drip. cc: Ghulam Thomas MD
--- NOTE | 2018-10-21 14:17 | CARDIOLOGY CONSULTATION ---
DATE: 10/21/2018 REASON FOR CONSULTATION: Cardiology was consulted for atrial fibrillation, heart failure. Patient has multiple medical problems. HISTORY OF PRESENT ILLNESS: An 88-year-old gentleman with past medical history of chronic respiratory failure, COPD, coronary artery disease, chronic atrial fibrillation, hypertension, diabetes. Also has lung cancer. He came to the emergency room with 2 weeks of worsening shortness of breath associated with cough with mucoid to mucopurulent expectoration. He became progressively short of breath. He also complains of having chest discomfort on coughing. There are no fevers or chills. He has not taken his medications recently as he ran out of his medications. He came to the emergency room, was noted to have atrial fibrillation with rapid ventricular rate and he was started on a Cardizem drip. He is positive for flu. His chest x-ray revealed heart failure. He also has malignancy. Dr. Galaviz has been consulted. REVIEW OF SYSTEM: A 14-point review of systems was done.GI: There is no history of nausea, vomiting, or diarrhea. There is no history of hematemesis or melena. Central nervous system: No focal weakness to suggest a CVA or TIA. Genitourinary: There is no dysuria or hematuria. Respiratory System: As above. Cardiovascular System: As above. PAST MEDICAL HISTORY: 1. Coronary artery disease, status post stent placement in the past. 2. Right carotid endarterectomy. 3. Left foot surgery. 4. Chronic atrial fibrillation. 5. Ischemic cardiomyopathy. 6. Gastroesophageal reflux disease. 7. Peripheral vascular disease. 8. Hypertension. 9. Diabetes. 10. Renal insufficiency. 11. Status post right carotid endarterectomy. HOME MEDICATIONS: Include: 1. Eliquis 2.5 mg p.o. b.i.d. 2. Losartan 50 b.i.d. 3. Protonix 40. 4. Simvastatin 20. 5. Cilostazol 100 mg p.o. t.i.d. PHYSICAL EXAMINATION: Vital signs: Blood pressure was 150/80. First and second heart sounds were heard. There was faint systolic murmur. Respiratory: Bibasilar inspiratory crepitations. Abdomen: Soft, obese, nontender. There was no guarding or rigidity. Bowel sounds were heard. Central nervous system: Alert. Was moving all 4 extremities. Extremities: Mild pedal edema. HEENT: Atraumatic, normocephalic. Pupils were equal and reacting to light. LABORATORY DATA: WBC 5880, hemoglobin 11.2, hematocrit 34, platelet count of 201,000. Sodium 144, potassium 3.5, BUN 16, creatinine 1.3. Influenza screen was positive for influenza A. IMAGING: Chest x-ray suggestive of infiltrate, heart failure. ASSESSMENT: Mr. Chandana Leong is an 88-year-old gentleman with history of chronic atrial fibrillation, hypertension, ischemic cardiomyopathy, peripheral vascular disease, lung cancer, chronic obstructive pulmonary disease, has bronchial alveolar carcinoma which is metastatic, came to the emergency room with symptoms as above. PLAN: 1. From a cardiac standpoint, I will change his Cardizem drip to p.o. Cardizem and beta-blockers. 2. He is on Eliquis for stroke prophylaxis. 3. As far as his heart failure is concerned, it is multifactorial, in addition to increasing atrial fibrillation. He also has not been on his Lasix. We will continue with Lasix 40 mg a day intravenously. 4. We will get an echocardiogram to reassess cardiac and valvular function. 5. Metastatic bronchioloalveolar carcinoma. Oncology has been consulted. Thank you for the consult. cc: Chris Ray MD
[2018-10-21] MEDS: LOPRESSOR PO SCH ×2 (14:34→22:02)
[2018-10-21] MEDS: CARDIZEM PO SCH ×2 (14:34→22:01)
[2018-10-21 21:19] LABS: CK INDEX 0.6 (0.0-2.5); CK-MB 2.1 ng/mL (0.0-5.0)
[2018-10-21] MEDS: AMBIEN PO SCH (22:01)
[2018-10-21] MEDS: PLETAL PO SCH (22:02)
[2018-10-21] MEDS: ZOCOR PO SCH (22:02)
[2018-10-21] MEDS: TYLENOL PO PRN (22:06)
[2018-10-22] MEDS: CARDIZEM PO SCH ×2 (02:28→08:34)
[2018-10-22] MEDS: DUONEB (A & A) INH SCH ×3 (03:00→11:14)
--- NOTE | 2018-10-22 03:53 | ECHO REPORT ---
ORDER DATE: 10/21/2018 MEASUREMENTS: Left ventricular end-diastolic 4.2. Systolic diameter 3.7. Septal thickness 1.2. Posterior wall thickness 1.2. Aortic root 3.8. Left atrium 4.7. SUMMARY: 1. Adequate quality study. 2. The aortic valve is trileaflet and demonstrates sclerotic change, but adequate opening on 2- dimensional images. Peak gradient across the aortic valve is less than 10 mmHg. Mitral, tricuspid and pulmonic valves are without evidence of structural abnormality. There is mild mitral regurgitation, mild tricuspid regurgitation, and [id number] pulmonic insufficiency. The estimated systolic PA pressure by Doppler is 65 mmHg suggesting moderate- to-severe pulmonary hypertension. The aortic root is borderline enlarged. 3. Normal left ventricular chamber size with mild concentric left hypertrophy is demonstrated. Estimated left ventricular ejection fraction is approximately 25%-30% in the setting of global hypokinesis. The left atrium is moderately enlarged. The right atrium is moderate-to- severely enlarged. The right ventricle is mildly enlarged with reduced right ventricular systolic function. 4. No pericardial effusion. 5. Appearance of inferior vena cava suggests elevated central venous pressure. 6. Atrial fibrillation during study. cc: Myles Tobin MD
[2018-10-22 05:54] LABS: HEMATOCRIT 29.6 % (42.0-52.0); HEMOGLOBIN 9.6 g/dL (14.0-18.0); MCH 32.5 PG (27-31); MCHC 32.4 g/dL (33-37); MCV 100.3 FL (81-99); MPV 10.4 FL (7.4-10.4); RBC 2.95 XMIL (4.7-6.1); RDW 15.1 % (11.5-14.5); WBC 4.39 X1000 (4.8-10.8)
[2018-10-22 06:13] LABS: CALCIUM 8.5 mg/dL (8.8-10.2); CREATININE 1.5 mg/dL (0.7-1.2); POTASSIUM 3.3 mmol/L (3.5-5.1)
[2018-10-22] MEDS: PROTONIX PO SCH (06:13)
--- NOTE | 2018-10-22 07:48 | EKG Report ---
Test Performed on : 10/22/2018 07:08:21 AM Test Reason : afib Blood Pressure : / mmHG Vent. Rate : 072 BPM Atrial Rate : 068 BPM P-R Int : 000 ms QRS Dur : 090 ms QT Int : 486 ms P-R-T Axes : 000 097 057 degrees QTc Int : 532 ms Atrial fibrillation. with a competing junctional pacemaker. Rightward axis Cannot rule out Inferior infarct , age undetermined Prolonged QT Abnormal ECG When compared with ECG of 21-OCT-2018 07:01, Minimal criteria for Inferior infarct are now present Confirmed by Som Blake MD ([id number]) on 10/22/2018 9:21:27 PM
[2018-10-22] MEDS: ELIQUIS PO SCH ×2 (08:34→21:00)
[2018-10-22] MEDS: LASIX IV SCH (08:34)
[2018-10-22] MEDS: TAMIFLU PO SCH ×2 (08:34→21:01)
[2018-10-22] MEDS: PLETAL PO SCH ×2 (08:34→21:02)
[2018-10-22] MEDS: COZAAR PO SCH ×2 (08:34→21:01)
[2018-10-22] MEDS: LOPRESSOR PO SCH ×2 (08:34→21:00)
--- NOTE | 2018-10-22 08:41 | HEMO/ONC PROGRESS NOTE ---
DATE: 10/22/2018 SUBJECTIVE: The patient says he slightly feels better at this time. The patient has no major complaints at this time. OBJECTIVE: Vital Signs: Temperature 98.2 degrees, heart rate 87, respiratory rate 17, blood pressure 127/93, saturation 93% on nasal cannula. General: The patient is awake, lying in bed. No acute distress noted. HEENT: Anicteric. PERRLA. Mucous membranes appear to be dry. Cardiovascular: S1, S2. Irregular rate and rhythm. Chest: Bilateral breath sounds with wheezing bilaterally. Abdomen: Soft, nontender. Bowel sounds present in all 4 quadrants. Neurologic: Alert and oriented x3. No focal deficits noted. LABORATORY DATA: White cell count 4.39, hemoglobin 9.6, hematocrit 29.6, platelets 188,000. Potassium 3.3, BUN 20, creatinine 1.5. ASSESSMENT AND PLAN: 1. Metastatic bronchoalveolar carcinoma: Once the patient is discharged and back to baseline, we can continue treatment at that time. Otherwise, the patient will continue to get better and we will just continue to monitor at this time. 2. Influenza A: Continue recommendations per primary medical team. 3. Atrial fibrillation with rapid ventricular response: Continue recommendations per Cardiology and primary medical team. 4. Congestive heart failure with exacerbation: Continue recommendations per primary medical team and Cardiology. 5. Deep venous thrombosis prophylaxis. Continue Eliquis as ordered. 6. Supportive care: Continue to have the patient get out of bed as much as possible. Continue to have patient do exercise as instructed. Continue to do protein shakes t.i.d. Dictated by ZOYA Scanlon for Semaj Galaviz MD Patient seen and examined. Discussed with family at bedside. Patient and family members her still interested in palliative therapy. Once he is better from his hospitalization, we will see him back outpatient and plan further management accordingly. I will sign off at this time. Please call with any questions. Semaj Galaviz M.D. cc: ZOYA Scanlon MD [facility]
[2018-10-22] MEDS ORDERED: KLOR-CON PO ONE (09:54)
[2018-10-22] MEDS ORDERED: MAGNESIUM SULFATE 2 GM/S.W.I. 2 GM/50 ML IVPB IV ONE (09:54)
[2018-10-22] MEDS: CARDIZEM CD PO SCH (10:13)
[2018-10-22] MEDS ORDERED: NS NEB INH SCH (12:15)
--- NOTE | 2018-10-22 15:31 | PROGRESS NOTE ---
DATE: 10/22/2018 SUBJECTIVE: The patient has no focal complaints. OBJECTIVE: Vital Signs: Blood pressure 102/63, heart rate 68, respiratory rate 24, temperature 98 degrees, 100% on 2 L. Cardiovascular: Regular rate and rhythm. Pulmonary: Bilateral breath sounds clear to auscultation. Gastrointestinal: Soft, nontender, nondistended. Bowel sounds are positive. LABORATORY DATA: White count 4, hemoglobin and hematocrit 9 and 29, platelets 188,000. Potassium is 3.3. Creatinine is 1.5. Magnesium is 1.4. PROBLEM LIST: 1. Atrial fibrillation, which appears to be rate controlled. We need to aggressively manage his magnesium. That has been supplemented. In any case, he is currently on Cardizem, which I think we switched to 180, and he is on metoprolol, which we had bumped up yesterday. He is on apixaban as well, but he is rate-controlled and he probably can go to the floor. 2. Influenza with some bronchitis. We will continue treatment. He is complaining of a rash around his penile area, a circumferential rash. It almost looks like vitiligo. There are no discrete lesions, it is just kind of hypopigmented rash. He says it has been there about 3 or 4 days. 3. Congestive heart failure. He is on diuretics. Cardiology is following. 4. Right lung cancer. Aware of diagnosis. Dr. Galaviz is also following. 5. Chronic obstructive pulmonary disease. We will continue breathing treatments to make sure that there are no major issues with his heart rate. DISPOSITION: I think he could go to the floor today and possibly home in the next 1 to 2 days pending his clinical course. cc: Ghulam Thomas MD
[2018-10-22] MEDS: ATROVENT NEB INH PRN ×2 (15:39→21:00)
[2018-10-22] MEDS: XOPENEX NEB INH PRN ×2 (15:39→21:00)
[2018-10-22] MEDS ORDERED: XOPENEX NEB INH SCH (16:00)
[2018-10-22] MEDS ORDERED: ATROVENT NEB INH SCH (16:00)
[2018-10-22] MEDS: AMBIEN PO SCH (21:01)
[2018-10-22] MEDS: ZOCOR PO SCH (21:01)
[2018-10-22] MEDS: TYLENOL PO PRN (22:33)
[2018-10-23] MEDS: XOPENEX NEB INH PRN ×4 (03:45→21:40)
[2018-10-23] MEDS: ATROVENT NEB INH PRN ×4 (03:45→21:40)
[2018-10-23] MEDS: PROTONIX PO SCH ×2 (05:10→06:11)
[2018-10-23 06:34] LABS: EOS# 0.09 X1000 (0.0-0.7); EOS% 2.2 % (0.0-10.0); HEMATOCRIT 29.8 % (42.0-52.0); HEMOGLOBIN 9.5 g/dL (14.0-18.0); LYMPH# 0.66 X1000 (1.2-3.4); LYMPH% 16.1 % (20.5-51.1); MCH 31.4 PG (27-31); MCHC 31.9 g/dL (33-37); MCV 98.3 FL (81-99); MONO# 0.57 X1000 (0.11-0.59); MONO% 13.9 % (1.7-9.3); MPV 10.4 FL (7.4-10.4); NEUT# 2.77 X1000 (1.4-6.5); NEUT% 67.8 % (42.2-75.2); PLT 192 X1000 (130-400); RBC 3.03 XMIL (4.7-6.1); WBC 4.09 X1000 (4.8-10.8)
--- NOTE | 2018-10-23 06:40 | Diag Imaging Result Doc PS360 ---
EXAM: CHEST-PORTABLE HISTORY: dyspnea TECHNIQUE: Chest single view COMPARISON: 10/20/2018 FINDINGS: There is opacification of the upper right hemithorax. This has either slightly increased or there is decreased inspiration in the remaining right lung. The heart is enlarged and there is pulmonary edema. IMPRESSION: No interval improvement. Electronically signed by Delano Owen 10/23/2018 6:37 AM
[2018-10-23 06:53] LABS: CALCIUM 7.9 mg/dL (8.8-10.2); CREATININE 1.7 mg/dL (0.7-1.2); MAGNESIUM 1.8 mg/dL (1.5-2.7); POTASSIUM 3.4 mmol/L (3.5-5.1)
[2018-10-23] MEDS: TAMIFLU PO SCH ×2 (09:47→21:35)
[2018-10-23] MEDS: COZAAR PO SCH ×2 (09:47→21:35)
[2018-10-23] MEDS: PLETAL PO SCH ×2 (09:47→21:35)
[2018-10-23] MEDS: LOPRESSOR PO SCH ×2 (09:47→21:35)
[2018-10-23] MEDS: CARDIZEM CD PO SCH (09:47)
[2018-10-23] MEDS: ELIQUIS PO SCH ×2 (09:47→21:35)
[2018-10-23] MEDS: LASIX IV SCH (09:47)
[2018-10-23] MEDS ORDERED: MAGNESIUM SULFATE 2 GM/S.W.I. 2 GM/50 ML IVPB IV ONE (13:46)
[2018-10-23] MEDS ORDERED: POTASSIUM CHLORIDE 20% LIQUID PO ONE (13:46)
--- NOTE | 2018-10-23 16:01 | CARDIOLOGY PROGRESS NOTE ---
DATE: 10/23/2018 SUBJECTIVE: Mr. Leong reports his breathing has improved somewhat. He does not have any heart racing. PHYSICAL EXAMINATION: Patient is afebrile. More recently, he had a T-max of a 100.8 degrees on the 14th. His heart rate is 75, blood pressure 123/71.General: He is in no acute distress. Cardiovascular: Regular rate and rhythm. He has no murmurs, no S3. No lower extremity edema. Chest: Has coarse breath sounds somewhat diffusely especially on the right. Abdomen: Soft, nontender, nondistended. No obvious organomegaly. PERTINENT DATA: White count is 4, hematocrit is 29, platelet count is 192,000. Sodium 137, potassium 3.4, BUN 22, creatinine is 1.7, magnesium level is 1.8. ASSESSMENT: Mr. Leong is an 88-year-old gentleman who presented with influenza. He has had a repeat of his echocardiogram in the interim that demonstrates reduction in his ejection fraction to 25 to 30%. PLAN: His I's and O's are very difficult to trend. He does seem to have had a negative fluid balance although very slight and has had very poor oral intake recorded. His chest x-ray appears worse but it has been noted to be not a lot worse compared to the study back in 2018. Many of these findings were likely secondary to his lung cancer. His BUN and creatinine ratio seem to have increased. For the time being, I will hold his Lasix and check his BMP in the morning. We may need consideration to broaden out his antibiotic coverage if there is a concern for a possible superinfection with a pneumonia. cc: Nathan Fernández MD
[2018-10-23] MEDS: ZOCOR PO SCH (21:35)
[2018-10-23] MEDS: AMBIEN PO SCH (21:35)
[2018-10-23] MEDS: TYLENOL PO PRN (21:36)
[2018-10-24] MEDS: ATROVENT NEB INH PRN (03:06)
[2018-10-24] MEDS: XOPENEX NEB INH PRN (03:07)
[2018-10-24] MEDS: PROTONIX PO SCH ×2 (05:50→06:17)
[2018-10-24 06:50] LABS: BASO# 0.01 X1000 (0.0-0.2); BASO% 0.2 % (0.0-0.8); EOS# 0.07 X1000 (0.0-0.7); EOS% 1.1 % (0.0-10.0); HEMOGLOBIN 9.9 g/dL (14.0-18.0); LYMPH# 0.61 X1000 (1.2-3.4); LYMPH% 9.4 % (20.5-51.1); MCH 31.4 PG (27-31); MCHC 31.9 g/dL (33-37); MCV 98.4 FL (81-99); MONO# 0.76 X1000 (0.11-0.59); MONO% 11.7 % (1.7-9.3); MPV 10.5 FL (7.4-10.4); NEUT# 5.02 X1000 (1.4-6.5); NEUT% 77.6 % (42.2-75.2); PLT 194 X1000 (130-400); RBC 3.15 XMIL (4.7-6.1); RDW 15.1 % (11.5-14.5); WBC 6.47 X1000 (4.8-10.8)
[2018-10-24 07:13] LABS: ALBUMIN 3.3 g/dL (3.5-5.0); CALCIUM 8.5 mg/dL (8.8-10.2); CREATININE 1.7 mg/dL (0.7-1.2); POTASSIUM 3.6 mmol/L (3.5-5.1)
[2018-10-24] MEDS: CARDIZEM CD PO SCH (08:27)
[2018-10-24] MEDS: TAMIFLU PO SCH (08:27)
[2018-10-24] MEDS: PLETAL PO SCH (08:27)
[2018-10-24] MEDS: COZAAR PO SCH (08:27)
[2018-10-24] MEDS: LOPRESSOR PO SCH (08:27)
[2018-10-24] MEDS: ELIQUIS PO SCH (08:27)
[2018-10-24] MEDS ORDERED: LASIX IV SCH (09:00)
[2018-10-24 12:16] VITALS: BP 141/95
--- NOTE | 2018-10-24 13:46 | CARDIOLOGY PROGRESS NOTE ---
DATE: 10/24/2018 SUBJECTIVE: Mr. Leong feels basically stable in his breathing to mildly better. OBJECTIVE: Vital signs: He is afebrile. Heart rate of 77, blood pressure 141/95. His I's and O's seem to finally show a negative balance in the last 24 hours. He did have some relatively poor input and output recording in the previous 24-48 hours. General: He is in no acute distress. Cardiovascular: He sounds to be in a regular rate and rhythm. I do not hear any obvious murmurs. He has no lower extremity edema. Chest: Exam is notable for coarse breath sounds somewhat diffusely with mild rhonchi on the right. Abdomen: Soft, nontender. PERTINENT DATA: White count 6.5, hematocrit 31, platelet count 194,000. His sodium is 137, potassium 3.6, BUN 19, creatinine is 1.7 which is roughly stable from yesterday. ASSESSMENT: Mr. Leong is an 88-year-old gentleman who presented with influenza. His echocardiogram demonstrated a significant reduction in his EF to 25 to 30%. PLAN: He shows a negative fluid balance. His renal function is relatively stable. He is on correctly dosed Apixaban. I will continue him on the furosemide. Currently he is on metoprolol 25 b.i.d. as well as losartan 50 b.i.d. We will continue with the aforementioned plan. His primary cardiology team will be back to evaluate the patient in the morning. I will ensure he has laboratories ordered. cc: Nathan Fernández MD
--- NOTE | 2018-10-24 16:32 | DISCHARGE SUMMARY ---
ADMISSION DATE: 10/20/2018 DISCHARGE DATE: DISCHARGE DIAGNOSIS: 1. Atrial fibrillation with rapid ventricular response likely reactive to flu. 2. Positive influenza A with bronchitis. 3. History of congestive heart failure. 4. 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 5. Chronic obstructive pulmonary disease. CONSULTATIONS: 1. Dr. Galaviz. 2. Dr. Nathan Fernández, cardiology initially Dr. Ray . Briefly this is a an 88-year-old gentleman who comes in with shortness of breath. He was found to be flu A positive. He had atrial fibrillation with RVR, placed on Cardizem. He was given Lasix. Now per Dr. Galaviz his right upper lobe cancer he is no longer amenable to further treatment. They are doing genetic testing now to evaluate for immunotherapy or other palliative therapy but no strong chemotherapy not going be able to undergo that at this time. EF is low [address] Galaviz was consulted and recommended treatment but he is not getting cell destructive cyto-suppressive chemotherapy. He will get immunotherapy or tyrosine kinase inhibitors at best if his testing is consistent. He was placed on a Cardizem drip and then transitioned to Cardizem, beta blockers. He was on Eliquis. He was on Lasix. He was on very low-dose Lasix prior to this. He slowly clinically improved. He had opacification upright hemithorax but that has been there before. He had some pulmonary edema. Overall he was felt to be stable, saturations were 98% on 2 L overall, he had been afebrile since admission. White count was normal day of discharge creatinine 1.7. DISCHARGE MEDICINES: Ambien 10, Eliquis 2.5 b.i.d., cilostazol 100 b.i.d., guaifenesin p.r.n., Imdur 30 b.i.d., Protonix 40 daily, simvastatin 20 daily, Cardizem CD 180 daily new, Lasix 40 daily new, Cozaar 50 b.i.d., Lopressor 25 b.i.d., Tamiflu 75 mg p.o. b.i.d. for 4 days and zinc sulfate 220 b.i.d. FOLLOWUP: With his PCP and Dr. Ray at discharge. Return for worsening shortness of breath, cough or fevers. TIME SPENT: 32 minutes. cc: Ghulam Thomas MD MTDD
--- NOTE | 2018-10-25 08:55 | EKG Report ---
Test Performed on : 10/23/2018 06:57:38 AM Test Reason : afib Blood Pressure : / mmHG Vent. Rate : 071 BPM Atrial Rate : 078 BPM P-R Int : 000 ms QRS Dur : 086 ms QT Int : 452 ms P-R-T Axes : 000 048 029 degrees QTc Int : 491 ms Atrial fibrillation. with a competing junctional pacemaker. with premature ventricular or aberrantly conducted complexes. Prolonged QT Abnormal ECG When compared with ECG of 22-OCT-2018 07:08, Minimal criteria for Inferior infarct are no longer present Confirmed by Som Blake MD ([id number]) on 10/25/2018 3:27:27 PM
== END 2018-10-24 18:13 | disposition home health service (06) | DRG 291 ==
LOC: EDSEX → SUPCPDRO → ED 19:20 → SUATTDRO 23:17 → EDIPHOLD 23:17 → 3S 10-21 13:03 → 4N 10-22 18:08
PROVIDERS: ATTEND Internal Medicine
CPT/HCPCS: 71010; 71045; 80048; 80053; 81001; 82040; 82550; 82553; 82805; 83036; 83605; 83735; 83880; 84484; 85025; 85027; 85610; 85730; 87040; 87070; 87205; 87275; 87276; 87804; 93005; 93010; 93306; 94640; 94761; 94799; 96365; 96366; 96375; 96376; 99285; A9270; J1940; J3475

== ENCOUNTER 2019-07-05 10:05 | Inpatient (IN) ==
[2019-07-05] MEDS ORDERED: DUONEB (A & A) INH ONE (10:36)
--- NOTE | 2019-07-05 10:59 | EKG Report ---
Test Performed on : 07/05/2019 10:08:03 AM Test Reason : SOB Blood Pressure : / mmHG Vent. Rate : 079 BPM Atrial Rate : 113 BPM P-R Int : 000 ms QRS Dur : 086 ms QT Int : 446 ms P-R-T Axes : 000 051 022 degrees QTc Int : 511 ms Atrial fibrillation. with premature ventricular or aberrantly conducted complexes. Nonspecific ST abnormality Prolonged QT Abnormal ECG When compared with ECG of 23-OCT-2018 06:57, No significant change was found Unconfirmed Result
[2019-07-05 11:04] LABS: BASO# 0.02 X1000 (0.0-0.2); BASO% 0.4 % (0.0-0.8); EOS# 0.15 X1000 (0.0-0.7); EOS% 2.9 % (0.0-10.0); HEMOGLOBIN 10.9 g/dL (14.0-18.0); IMM GRAN# 0.02 X1000 (0.0-0.04); IMM GRAN% 0.4 % (0.0-0.5); LYMPH# 0.62 X1000 (1.2-3.4); LYMPH% 11.8 % (20.5-51.1); MCH 30.1 PG (27-31); MCHC 32.1 g/dL (33-37); MCV 93.9 FL (81-99); MONO# 0.42 X1000 (0.11-0.59); MPV 10.9 FL (7.4-10.4); NEUT# 4.02 X1000 (1.4-6.5); NEUT% 76.5 % (42.2-75.2); PLT 156 X1000 (130-400); RBC 3.62 XMIL (4.7-6.1); RDW 17.7 % (11.5-14.5); WBC 5.25 X1000 (4.8-10.8)
--- NOTE | 2019-07-05 11:12 | Diag Imaging Result Doc PS360 ---
EXAM: CHEST-2 VIEWS 07/05/2019 HISTORY: cough/dyspnea TECHNIQUE: PA and lateral chest COMMENT: There is an apparent cavity in the right apex which was previously a uniformly dense mass on 10/23/2018. There is apical pleural thickening on the right. The heart size is enlarged as it was previously. There is a right pleural effusion which was not as evident on the previous study. IMPRESSION: Cavitary mass in the right apex. Right pleural effusion. Cardiomegaly and mild pulmonary edema. Electronically signed by Elmer Tamez 07/05/2019 11:09 AM
[2019-07-05 11:51] LABS: ALB/GLOB RATIO 1.3; ALBUMIN 3.9 g/dL (3.5-5.0); CALCIUM 8.5 mg/dL (8.8-10.2); CREATININE 1.4 mg/dL (0.7-1.2); POTASSIUM 3.4 mmol/L (3.5-5.1); TOTAL BILIRUBIN 1.07 mg/dL (0.20-1.00)
[2019-07-05] MEDS ORDERED: SOLU-MEDROL IV ONE (12:19)
[2019-07-05] MEDS ORDERED: LASIX IV ONE (12:20)
[2019-07-05] MEDS ORDERED: ALBUTEROL NEB INH ONE ×2 (12:20→15:00)
--- NOTE | 2019-07-05 12:27 | PROVIDER DOCUMENTATION ---
HPI-Cardiac General - General Chief Complaint: Shortness of Breath Stated Complaint: SOB,LUNG CANCER,CHF Time Seen by Provider: 07/05/19 10:24 Allergies/Adverse Reactions: Patient Allergies Allergy/AdvReac Type Severity Reaction Status Date / Time No Known Allergies Allergy Verified 08/20/18 10:41 Home Medications: Home Medication List Medication Instructions Recorded Confirmed Last Taken Type Apixaban [Eliquis] 2.5 mg PO BID 10/08/17 07/05/19 05/27/18 21:00 History Pantoprazole [Protonix] 40 mg PO DAILY@0700 10/08/17 07/05/19 05/27/18 09:00 History Simvastatin 20 mg PO HS 10/08/17 07/05/19 05/27/18 21:00 History Losartan [Cozaar] 50 mg PO BID tablet 04/27/18 07/05/19 05/27/18 21:00 Rx Zinc Sulfate 220 mg PO BID capsule 04/27/18 07/05/19 05/27/18 21:00 Rx Isosorbide Mononitrate [Isosorbide 30 mg PO BID 08/20/18 07/05/19 Unknown History Mononitrate ER] Zolpidem [Ambien] 10 mg PO QHS 10/21/18 07/05/19 10/19/18 21:30 History 10 mg Diltiazem C.d. [Cardizem C.d] 180 mg PO DAILY #30 cap 10/24/18 07/05/19 Unknown Rx Furosemide [Lasix] 40 mg PO DAILY #30 tab 10/24/18 07/05/19 Unknown Rx Metoprolol [Lopressor] 25 mg PO BID #60 tab 10/24/18 07/05/19 Unknown Rx - History of Present Illness-Cardiac Nature of Presenting Problem: Patient with a h/o Afib, CHF, HTN, lung ca, Gout brought by EMS for cough and sob of 3 days duration, getting worse. patient reports compliance with Lasix and reports no other associated symptoms. presently on non rebreather Location: reports: other (sob) Quality of Pain: reports: none Onset/Duration: 3 days ago Timing: still present Modifying Factors: improves with: nothing Palpitation Quality: N/A History of arrythmia: reports: A-Fib Recent use of:: reports: no stimulants Nitro Today/Relief: reports: no nitro taken today Aspirin Treatment Today: reports: no aspirin today Similar Symptoms Previously?: Yes Recently Seen Here or By Another Healthcare Provider: Yes Review of Systems - Adult - REVIEW OF SYSTEMS - ADULT Constitutional: reports: no symptoms reported Eyes: reports: no symptoms reported Ears, Nose, Mouth & Throat: reports: no symptoms reported Cardiovascular: reports: see HPI Respiratory: reports: see HPI Gastrointestinal: reports: no symptoms reported Genitourinary: reports: no symptoms reported Musculoskeletal: reports: no symptoms reported Integumentary: reports: no symptoms reported Neurological: reports: no symptoms reported Psychiatric: reports: no symptoms reported Endocrine: reports: no symptoms reported Hematologic/Lymphatic: reports: no symptoms reported Allergic/Immunologic: reports: no symptoms reported Past History - Adult - PAST MEDICAL HISTORY-ADULT Review of Records: reports: Nursing Assessment Review, Medications Reviewed, S ocial history reviewed & non-contributory. Major Childhood Illnesses: reports: denies history Cardiovascular: reports: A-Fib, CAD, CHF, HTN, hyperlipidemia, PAD Respiratory: reports: cancer Gastrointestinal: reports: denies history Obstetrical/Gynecological: reports: denies history Genitourinary: reports: denies history Musculoskeletal: reports: arthritis, other (gout) Neurological: reports: CVA Psychiatric: reports: denies history Endocrine/Immune: reports: denies history Other Conditions: reports: denies history - PRIOR SURGERIES/PROCEDURES Surgical/Procedure History: reports: cardiac stent, orthopedic (extremity) (right foot), other (Stents) - PRIOR HOSPITALIZATIONS Prior Hospitalizations: reports: none - IMMUNIZATION STATUS Childhood Immunizations: See Nurse Assessment Flu Vaccine: See Nurse Assessment - FAMILY HISTORY Family History: reviewed, not pertinent - SOCIAL HISTORY Smoking: denies Substance Use: none/never Alcohol Use Frequency: sober (former use) (x 35years) Living Situation: family Physical Exam-General - PHYSICAL EXAM-ADULT Initial Vital Signs Reviewed: Yes - CONSTITUTIONAL General Appearance: appears well, alert, mild distress, moderate distress (on 02 NC) - EYES Eyes: PERRL/EOMI - HEAD, EARS, NOSE, MOUTH & THROAT HENMT: normocephalic/atraumatic - NECK Neck: non-tender, full range of motion, supple - RESPIRATORY Respiratory: chest non-tender, lungs clear, wheezing - CARDIOVASCULAR Cardiovascular: irregularly irregular - GASTROINTESTINAL (ABDOMEN) Abdominal Exam: non tender, soft - MUSCULOSKELETAL Back Exam: normal inspection Extremity: non-tender, no pedal edema - SKIN Integumentary: normal color - PSYCHIATRIC Psych/Mental Status: oriented x 3 Progress - PLAN OF CARE/RESULTS Progress/Plan/Lab Results: Vital Signs - 8 hr 07/05/19 10:17 07/05/19 10:30 07/05/19 10:31 Temperature 98.2 F Pulse Rate 79 68 71 Respiratory Rate 20 33 H 32 H Blood Pressure 170/81 174/115 163/116 O2 Sat by Pulse Oximetry 95 92 L 93 L 07/05/19 11:03 07/05/19 11:31 07/05/19 12:01 Temperature Pulse Rate 72 72 71 Respiratory Rate 33 H 35 H 26 H Blood Pressure 167/94 171/90 180/104 O2 Sat by Pulse Oximetry 98 100 95 07/05/19 13:01 07/05/19 13:31 Temperature Pulse Rate 72 79 Respiratory Rate 20 29 H Blood Pressure 163/101 167/118 O2 Sat by Pulse Oximetry 96 94 L Laboratory Results - last 24 hr 07/05/19 07/05/19 07/05/19 10:46 10:46 10:46 WBC 5.25 RBC 3.62 L Hgb 10.9 L Hct 34.0 L MCV 93.9 MCH 30.1 MCHC 32.1 L RDW Std Deviation 17.7 H Plt Count 156 MPV 10.9 H Immature Gran % (Auto) 0.4 Neut % (Auto) 76.5 H Lymph % (Auto) 11.8 L [place] % (Auto) 8.0 Eos % (Auto) 2.9 Baso % (Auto) 0.4 Immature Gran # (Auto) 0.02 Neut # (Auto) 4.02 Lymph # (Auto) 0.62 L [place] # (Auto) 0.42 Eos # (Auto) 0.15 Baso # (Auto) 0.02 D-Dimer, Quantitative Sodium 144 Potassium 3.4 L Chloride 105 Carbon Dioxide 25 Anion Gap 14 BUN 20 Creatinine 1.4 H Estimated GFR/1.73 m2 58 BUN/Creatinine Ratio 14 Glucose 88 Calculated Osmolality 289 Calcium 8.5 L Total Bilirubin 1.07 H AST 17 ALT 9 L Alkaline Phosphatase 120 Creatine Kinase 116 Troponin T Qsf-A-Gkixqhkbanh Pept Total Protein 7.0 Albumin 3.9 Globulin 3.1 Albumin/Globulin Ratio 1.3 Plasma Lactate 1.6 07/05/19 07/05/19 07/05/19 10:46 10:46 10:46 WBC RBC Hgb Hct MCV MCH MCHC RDW Std Deviation Plt Count MPV Immature Gran % (Auto) Neut % (Auto) Lymph % (Auto) [place] % (Auto) Eos % (Auto) Baso % (Auto) Immature Gran # (Auto) Neut # (Auto) Lymph # (Auto) [place] # (Auto) Eos # (Auto) Baso # (Auto) D-Dimer, Quantitative 2.48 H Sodium Potassium Chloride Carbon Dioxide Anion Gap BUN Creatinine Estimated GFR/1.73 m2 BUN/Creatinine Ratio Glucose Calculated Osmolality Calcium Total Bilirubin AST ALT Alkaline Phosphatase Creatine Kinase Troponin T 0.050 Vep-A-Kguibpwcggv Pept 3635 H Total Protein Albumin Globulin Albumin/Globulin Ratio Plasma Lactate Orders Category Date Time Status Saline Loc NOW Care 07/05/19 10:37 Active CHEST-2 VIEWS [RAD] Stat Exams 07/05/19 10:37 Completed CTA [CT ANGIOGRM PULMONARY ARTERIES] [CT] Stat Exams 07/05/19 12:21 Completed BLOOD CULTURE [BLDCUL] Stat Lab 07/05/19 11:59 Results CBC WITH DIFF [HEME] Stat Lab 07/05/19 10:46 Completed CK PROFILE [SP CHEM] Stat Lab 07/05/19 10:46 Completed COMPREHENSIVE METABOLIC PANEL [CHEM] Stat Lab 07/05/19 10:46 Completed D-DIMER [COAG] Stat Lab 07/05/19 10:46 Completed LACTATE, PLASMA [CHEM] Stat Lab 07/05/19 10:46 Completed PRO B-NATRIURETIC PEPTIDE Stat Lab 07/05/19 10:46 Completed TROPONIN T Stat Lab 07/05/19 10:46 Completed Acetaminophen [Tylenol] Med 07/05/19 12:33 Discontinued 650 mg PO NOW ONE Albuterol 2.5MG/Ipratrop 0.5MG [Duoneb (A & A)] Med 07/05/19 10:36 Discontinued 3 ml INH NOW ONE Albuterol [Albuterol Neb] Med 07/05/19 12:20 Discontinued 2.5 mg INH NOW ONE Albuterol [Albuterol Neb] Med 07/05/19 15:00 Discontinued 2.5 mg INH NOW ONE Furosemide [Lasix] Med 07/05/19 12:20 Discontinued 40 mg IV NOW ONE Hydralazine [Apresoline] Med 07/05/19 14:42 Discontinued 10 mg IV NOW ONE Methylprednisolone Sod Succ [Solu-Medrol] Med 07/05/19 12:19 Discontinued 125 mg IV NOW ONE Aerosol Treatments Routine Oth 07/05/19 10:41 Completed Aerosol Treatments Routine Oth 07/05/19 12:21 Completed Aerosol Treatments Routine Oth 07/05/19 14:51 Completed Aerosol Treatments Stat Oth 07/05/19 10:41 Completed Aerosol Treatments Stat Oth 07/05/19 12:21 Completed Aerosol Treatments Stat Oth 07/05/19 14:51 Completed Pulse Oximetry Stat Oth 07/05/19 10:37 Completed EKG [EKG] Stat Ther 07/05/19 10:22 Draft Result Diagrams: 07/05/19 10:46 07/05/19 10:46 - REASSESSMENT Reassessment #1 Time Reassessed: 12:24 Status: improving (Patient reports some improvement with duoneb, Exam reveals wheezing. He has elevated bnp, d-dimer, will order albuterol neb, lasix and CTA) Reassessment #2 Time Reassessed: 03:25 Status: unchanged (patient continues to be tarchypneic though breathing better and states that his cough has resolved. will continue albuterol and call for admission) - EKG 1 Time of EKG reading by physician:: 10:18 EKG Read and Signed by:: Gary Cortes EKG Interpretation (*Must complete 3 of following elements*): Abnormal Rate: 79 Rhythm: afib [place]: normal QRS: PVC's - XRAY 1 XRAY Study: Chest ( EXAM: CHEST-2 VIEWS 07/05/2019 HISTORY: cough/dyspnea TECHNIQUE: PA and lateral chest COMMENT: There is an apparent cavity in the r ight apex which was previously a uniformly dense mass on 10/23/2018. There is apical pleural thickening on the right. The heart size is enlarged as it was previously. There is a right pleural effusion which was not as evident on the previous study. IMPRESSION: Cavitary mass in the right apex. Right pleural effusion. Cardiomegaly and mild pulmonary edema. Electronically signed by Elmer Tamez 07/05/2019 11:09 AM 07/05/19 1100 Interpreting Physician: Elmer Tamez MD Dictated Date/Time: 07/05/19 1108) - CT/MRI 1 CT Study: Thorax ( CT ANGIOGRM PULMONARY ARTERIES - 07/05/2019 INDICATION: sob TECHNIQUE: Axial CT images were obtained after administering intravenous contrast. Coronal MIP images were generated. COMPARISON: 06/03/2019 FINDINGS: There is no pulmonary embolism. Stable severe cardiomegaly with right heart enlargement. Stable large opacified area in the right lung apex. Stable two enlarging bilateral pulmonary nodules in the lower lobes. Stable interstitial pulmonary edema in the lung bases right greater than left. There is a small right pleural effusion that has increased since prior. Numerous stable cysts in the kidneys. There are moderate degenerative changes of the spine. No acute or suspicious bony lesion. IMPRESSION: Small right pleural effusion increased from prior. Otherwise little change from prior. This exam was performed using automated exposure control, adjustment of mA or kV according to patient size, and/or use of iterative reconstruction technique Electronically signed by Lucas Us 07/05/2019 2:01 PM) - CONSULTS/PCP/HOSPITALIST Notification #1 *Consult/PCP/Hospitalist*: Dr Sheth Time Discussed: 03:55 Consult Disposition: Admit (ASHLEY Martin accepted admission for Dr. Sheth) Departure - Departure Date of Disposition Decision: 07/05/19 Time of Disposition Decision: 16:00 DIAGNOSIS: Wheezing on both sides of chest, Pulmonary mass CHF exacerbation Qualifiers: Heart failure type: unspecified Qualified Code(s): I50.9 - Heart failure, unspecified Atrial fibrillation Qualifiers: Atrial fibrillation type: unspecified Qualified Code(s): I48.91 - Unspecified atrial fibrillation Disposition: ADMITTED INPATIENT 09 Certified Medical Emergency: Emergent Condition: Fair Referrals and Follow-Ups: Frederick Sandra MD [Primary Care Provider] - - Critical Care Note This patient required my direct & personal management of CC.: No Attestation - Physician/ CRISTI Attestation Patient care was provided by Advanced Practice Provider:: No The physician spent face to face time with patient:: Yes Advanced Practice Provider documentation review:: Supervising physician onsite and consulted in the evaluation and care of this patient. The physician did have a face to face encounter with the patient.
[2019-07-05] MEDS ORDERED: TYLENOL PO ONE (12:33)
--- NOTE | 2019-07-05 14:03 | Diag Imaging Result Doc PS360 ---
CT ANGIOGRM PULMONARY ARTERIES - 07/05/2019 INDICATION: sob TECHNIQUE: Axial CT images were obtained after administering intravenous contrast. Coronal MIP images were generated. COMPARISON: 06/03/2019 FINDINGS: There is no pulmonary embolism. Stable severe cardiomegaly with right heart enlargement. Stable large opacified area in the right lung apex. Stable two enlarging bilateral pulmonary nodules in the lower lobes. Stable interstitial pulmonary edema in the lung bases right greater than left. There is a small right pleural effusion that has increased since prior. Numerous stable cysts in the kidneys. There are moderate degenerative changes of the spine. No acute or suspicious bony lesion. IMPRESSION: Small right pleural effusion increased from prior. Otherwise little change from prior. This exam was performed using automated exposure control, adjustment of mA or kV according to patient size, and/or use of iterative reconstruction technique Electronically signed by Lucas Us 07/05/2019 2:01 PM
[2019-07-05] MEDS ORDERED: APRESOLINE IV ONE (14:42)
[2019-07-05] MEDS ORDERED: VANCOMYCIN IV PER PHARMACY MISC SCH (17:15)
[2019-07-05] MEDS ORDERED: DUONEB (A & A) INH PRN (17:30)
--- NOTE | 2019-07-05 18:14 | HISTORY AND PHYSICAL ---
CHIEF COMPLAINT: Shortness of breath. 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 He states that he was in his normal state of health until Thursday. He began to develop increasing shortness of breath. This has progressed until today he is tachypneic, short of breath at rest with respiratory rates in the 20s to 30s. He denied any fevers or chills, any chest pain or palpitations. He does report a productive cough although he feels secretions are so thick he is having trouble getting them up. PAST MEDICAL HISTORY: 1. Atrial fibrillation. 2. History of congestive heart failure with an ejection fraction of 25 to 30 percent. 3. COPD. 4. Hypertension. PAST SURGICAL HISTORY: Cardiac stent and foot surgery. SOCIAL HISTORY: He denies alcohol, tobacco or illicit drug use. He lives with his son. He has children and grandchildren that are very active in his care. ALLERGIES: No known drug allergies. HOME MEDICATIONS: A list will be obtained by the nursing staff and once verified will review and restart as appropriate. REVIEW OF SYSTEMS: Discussed with the patient with pertinent positives stated in the HPI. He denied any syncope or dizziness, any chest pain or palpitations, any fevers, any hemoptysis, any nausea, vomiting, diarrhea, constipation, black or bloody vomitus or stools, hematuria, dysuria, frequency, urgency. PHYSICAL EXAMINATION: GENERAL: This is an 89-year-old gentleman who is sitting up in the stretcher in the emergency room in mild distress. VITAL SIGNS: Blood pressure is 163/101 with a heart rate of 77, respirations are ranging 22 to 28, temperature is 98.2 degrees with O2 saturations 95 to 100 percent on 2 L nasal cannula. HEENT: Head is normocephalic, atraumatic. Mucous membranes are dry. NECK: Supple with trachea midline. CARDIOVASCULAR: Irregularly irregular rate and rhythm. S1 and S2 appreciated. He has no lower extremity edema. Peripheral pulses are palpable x4 extremities. PULMONARY: Breath sounds with wheezes and rhonchi noted throughout. Chest rises and falls symmetric respiration. He does have some increased work of breathing. GASTROINTESTINAL: Abdomen soft, nontender, nondistended with bowel sounds in all 4 quadrants. NEUROLOGIC: He is alert and oriented. SKIN: Warm and dry. LABS: WBC is 5.2 with hemoglobin 10.9, hematocrit 34, platelets of 156,000. Sodium 144, potassium 3.4, BUN 20, creatinine 1.4 with a glucose of 289. ProBNP is 3635. Blood cultures are pending. Chest x-ray reveals cavitary mass in the right apex with right pleural effusion, cardiomegaly and mild pulmonary edema . Pulmonary arteriogram, small right pleural effusion otherwise little change from prior. ASSESSMENT AND PLAN: 1. Shortness of breath. 2. 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 Galaviz. 3. Chronic atrial fibrillation. 4. Ischemic cardiomyopathy with ejection fraction of 10 to 15 percent. 5. Chronic obstructive pulmonary disease with continuous home O2. 6. Chronic congestive heart failure secondary to diastolic dysfunction. 7. Chronic kidney disease. 8. Elevated D-dimer with a CTA pulmonary negative for pulmonary embolus. Patient will be admitted to the hospital, placed on telemetry. continue with supplemental oxygen, DuoNeb q.4 hours with q.2 hours p.r.n., steroids to taper. identify home medications and continue as appropriate. Zosyn and linezolid. consult Dr. Ramos as well as Dr. Galaviz. CBC and BMP in the morning. Code status was discussed with the patient, his daughter's sisters and grandson in the room. The patient stated that he wanted to be a DNR level 1. He did not want intubation. He did not want chest compressions nor did he want to be shocked. The family did agree with the patient's wishes and the patient has been made a DNR level 1. Plan was discussed with Dr. Naranjo. Further treatments pending hospital course. Dictated by ZOYA Mcdowell for Brandan Hampton MD cc: ZOYA Mcdowell MD [facility]
--- NOTE | 2019-07-05 18:26 | HISTORY AND PHYSICAL ---
ADDENDUM: Patient seen and examined by me [id number]. All of the laboratory, vital signs, and images were reviewed. The patient presented to the emergency department with a chief complaint of worsening shortness of breath and generalized weakness that has been going on for a few days, but especially since last Thursday. This patient has a medical history of chronic respiratory failure with hypoxemia secondary to COPD, lung cancer, CHF with an estimated ejection fraction around 25 to 30 percent, chronic atrial fibrillation, on anticoagulation therapy with Eliquis, ischemic cardiomyopathy with left ventricular dysfunction. He did have a cardiac stent placed in the right coronary artery in 2003, GERD, peripheral vascular disease, arthritis, right lung cancer in the apex followed by Dr. Galaviz as an outpatient. As per the family, this patient has been having radiotherapy, but no chemotherapy, I have consulted the practitioner. Hypertension and dyslipidemia. We did a CT angiogram that showed severe cardiomegaly with right heart enlargement, stable large opacified area in the right lung apex, stable to enlarging bilateral pulmonary nodules in the lower lobes, interstitial pulmonary edema in the lung bases, right greater than left. There is a small right pleural effusion that has increased since prior and some cysts in the kidneys that are moderate. Also, there are moderate degenerative changes of the spine, but no acute or suspicious bony lesions. Given his current presentation and physical exam, we will admit the patient. I will consult also Pulmonary Department and Oncology Department. I will put this patient on breathing treatment, antibiotics. I will monitor his blood pressure. I will put this patient back on his home medications. I had a large conversation with the family and the patient at the bedside. We discussed about his advanced directive and he wants to be DNR level 1. We discussed this for about 15 to 20 minutes. I explained to the patient and the whole family about his current situation and also about his prognosis. I told them that I do not know if this patient is going to get better or not, that we need time to decide that. Also, we need an Oncology evaluation. I agree with the rest of the nurse practitioner's assessment and plan. cc: Brandan Hampton MD
[2019-07-05] MEDS: ZOSYN 3.375 GM in NS 50 ML IV SCH (19:09)
[2019-07-05] MEDS: DUONEB (A & A) INH SCH ×2 (19:27→22:56)
[2019-07-05] MEDS: ZYVOX 600 MG/D5W 600 MG/300 ML IVPB IV SCH (21:27)
[2019-07-05] MEDS: ELIQUIS PO SCH (21:28)
[2019-07-05] MEDS: ZINC SULFATE PO SCH (21:29)
[2019-07-05] MEDS: IMDUR PO SCH (21:29)
[2019-07-05] MEDS: TYLENOL PO PRN (21:29)
[2019-07-05] MEDS: COZAAR PO SCH (21:30)
[2019-07-05] MEDS: AMBIEN PO SCH (21:30)
[2019-07-05] MEDS: SOLU-MEDROL IV SCH (21:32)
[2019-07-06] MEDS: ZOSYN 3.375 GM in NS 50 ML IV SCH ×5 (00:37→23:58)
[2019-07-06] MEDS: DUONEB (A & A) INH SCH ×6 (03:38→23:19)
[2019-07-06] MEDS: SOLU-MEDROL IV SCH ×3 (05:00→23:57)
[2019-07-06] MEDS: PROTONIX PO SCH (06:01)
[2019-07-06 07:21] LABS: HEMATOCRIT 32.3 % (42.0-52.0); HEMOGLOBIN 10.6 g/dL (14.0-18.0); MCH 30.7 PG (27-31); MCHC 32.8 g/dL (33-37); MCV 93.6 FL (81-99); MPV 11.6 FL (7.4-10.4); RBC 3.45 XMIL (4.7-6.1); RDW 17.8 % (11.5-14.5); WBC 5.12 X1000 (4.8-10.8)
[2019-07-06 07:58] LABS: CALCIUM 8.2 mg/dL (8.8-10.2); CREATININE 1.4 mg/dL (0.7-1.2); POTASSIUM 2.9 mmol/L (3.5-5.1)
[2019-07-06] MEDS: CARDIZEM CD PO SCH (08:47)
[2019-07-06] MEDS: IMDUR PO SCH ×2 (08:47→20:52)
[2019-07-06] MEDS: ZINC SULFATE PO SCH ×2 (08:47→20:50)
[2019-07-06] MEDS: COZAAR PO SCH ×2 (08:47→20:52)
[2019-07-06] MEDS: LASIX PO SCH (08:47)
[2019-07-06] MEDS: ZYVOX 600 MG/D5W 600 MG/300 ML IVPB IV SCH ×2 (08:48→20:47)
[2019-07-06] MEDS: ELIQUIS PO SCH ×2 (08:48→20:52)
[2019-07-06] MEDS ORDERED: KLOR-CON PO ONE (09:12)
[2019-07-06] MEDS ORDERED: ZOSYN ONE (09:53)
--- NOTE | 2019-07-06 13:29 | PROGRESS NOTE ---
DATE: 07/06/2019 SUBJECTIVE: This patient feels a little bit better compared with yesterday. I will continue with the same management for now. This patient will be evaluated by Hematology/Oncology Department and Pulmonary Department. OBJECTIVE: Vital Signs: Temperature 98.3 degrees, pulse 88, respiratory rate 19, blood pressure 145/72, oxygen saturation 100% on 2 L of nasal cannula. HEENT: Head normocephalic, no trauma. PERRLA. Neck: Supple. No JVD. No masses. Central trachea. Chest: Crepitus at the level of the right lung, especially the middle and upper side of the chest, some crepitus at the bases as well, decreased breath sounds at the right upper chest, right upper thoracic area, scattered rhonchi. Abdomen: Soft, nontender, nondistended. No hepatosplenomegaly. Extremities: No edema, no clubbing, no cyanosis. Neurological: The patient is alert. He is oriented x3. He is following commands. LABORATORY: WBC 5.1, hemoglobin 10.6, hematocrit 32.3, platelets 152,000. Sodium 143, potassium 2.9, chloride 102, bicarbonate 24, BUN 21, creatinine 1.4, glucose 188, calcium 8.2. ASSESSMENT AND PLAN: 1. Respiratory failure, likely due to bronchioalveolar carcinoma with progression of the right apical mass, followed by Dr. Galaviz, I also have requested an evaluation by Pulmonary Department. Continue breathing treatment and antibiotics. Probably there is an underlying infection. 2. Chronic atrial fibrillation. Continue with same management. 3. Ischemic cardiomyopathy with an ejection fraction of 10 to 15%, aware. 4. Chronic obstructive pulmonary disease. Continue with home O2. 5. CHF secondary to systolic and diastolic dysfunction, this patient's ejection fraction is around 25 to 30%, will continue with same management. 6. CKD, stable. 7. Elevated D-dimer with a negative CT angiogram for pulmonary embolism. 8. Possible underlying pneumonia, continue with antibiotics, breathing treatment, oxygen supplementation. Overall, this patient has poor prognosis, due to his age, lung cancer, and multiple comorbidities, but he seems to be more stable today. I will wait for the Pulmonary Department and the Hematology/Oncology Department to evaluate this patient. cc: Brandan Hampton MD
--- NOTE | 2019-07-06 14:08 | HEMO/ONC CONSULTATION ---
DATE: 07/06/2019 REASON FOR CONSULTATION: This is a known patient of ours for metastatic bronchoalveolar carcinoma. HISTORY OF PRESENT ILLNESS: Mr. Leong is an 89-year-old male with a history of metastatic bronchoalveolar carcinoma, who is currently being followed in our office. The patient is not receiving chemotherapy as he and his family wanted to take the wait and watch approach. He received definitive radiation last year. Since then, we have been following the patient with restaging scans every 3 months. Last PET scan revealed stable disease compared to prior.The patient came in to the ER with complaint of increasing shortness of breath. He denies any fevers or chills, chest pain or palpitations. He does have a productive cough with thick secretions that he is unable to get up. He also has some generalized weakness for several days. PAST MEDICAL HISTORY: 1. Atrial fibrillation. 2. History of congestive heart failure with an ejection fraction of 25% to 30%. 3. COPD. 4. Hypertension. 5. Metastatic bronchoalveolar carcinoma. PAST SURGICAL HISTORY: Cardiac stent and foot surgery. SOCIAL HISTORY: He denies alcohol, tobacco, or illicit drug use. ALLERGIES: No known drug allergies. HOME MEDICATIONS: Eliquis, Cardizem CD, Lasix, isosorbide mononitrate, Cozaar, Lopressor, Protonix, simvastatin, zinc, and Ambien. REVIEW OF SYSTEMS: Includes shortness of breath and productive cough. Denies dizziness, chest pain, fevers, chills, recurrent infections, nausea, vomiting, or diarrhea. PHYSICAL EXAMINATION: Vital Signs: Temperature 98.3 degrees, pulse rate 88, respiratory rate 19, blood pressure 145/72, O2 saturation 100% on nasal cannula at 2 L. He is in 0/10 pain. General: This is a chronically ill-appearing, elderly gentleman, who is in no acute distress. HEENT: Sclera is anicteric. PERRLA. Oral mucosa is dry. Cardiovascular: Irregular heart rate and rhythm. S1, S2 normal. Respiratory: Normal respiratory effort. Wheezes, with some diminished breath sounds heard throughout. Gastrointestinal: Abdomen is soft, nontender, nondistended. Bowel sounds are present. Neurological: He is awake, alert, and oriented. Skin: Warm, dry, and intact. Extremities: No lower extremity edema appreciated. LABORATORY DATA: WBC 5.12, hemoglobin 10.6, hematocrit 32.3, platelet count 152,000. D-dimer 2.48. Potassium 2.9, creatinine 1.4, calcium 8.2. ProBNP 3635. RADIOLOGY: Chest x-ray: Cavitary mass in the right apex, right pleural effusions, cardiomegaly, and mild pulmonary edema. Pulmonary arteriogram: Small right pleural effusion, increased from prior. No pulmonary embolisms. ASSESSMENT AND PLAN: 1. Metastatic bronchioalveolar carcinoma. The patient is currently not on any treatment in the clinic. We are watching him with restaging scans every 3 months. His last PET scan showed his masses remained stable in size, as well as the mediastinal lymphadenopathy. We are taking a wait and watch approach. 2. Renal insufficiency. The patient's baseline creatinine has been around 1.7. Continue IV fluids. 3. Shortness of breath. Continue on oxygen per protocol. Other treatment per medical team 4. Depression and anxiety. We will place the patient on Zoloft 50 mg nightly. 5. Deep venous thrombosis prophylaxis. Please get the patient out of bed 3 times a day. He is also on Eliquis 2.5 mg twice daily from hi A Fib standpoint. Dictated by ZOYA Ness for Semaj Galaviz MD cc: [facility]
[2019-07-06] MEDS: TYLENOL PO PRN (15:42)
[2019-07-06] MEDS: ULTRAM PO PRN ×2 (17:45→23:46)
--- NOTE | 2019-07-06 20:43 | PULMONOLOGY CONSULTATION ---
DATE: 07/06/2019 REQUESTING CLINICIAN: Dr. Naranjo. REASON FOR CONSULTATION: Lung cancer, hypoxemia, possible pneumonia. HISTORY OF PRESENT ILLNESS: Mr. Leong is an 89-year-old, black male, who presented to the hospital in October 2017, with a large mass in the right upper lobe and hemoptysis. He was diagnosed with adenocarcinoma with bronchioalveolar features. He had metastatic disease at the time of diagnosis. The patient's comorbidities include ischemic cardiomyopathy with severe reduction in ejection fraction. He has been followed by Oncology with an expectant approach without chemotherapy. The patient reports he has had increasing shortness of breath over the last three years. He reports it became more severe in the last three days, and he was unable to get up and go to the bathroom. He presented to the emergency room with increasing shortness of breath. PAST MEDICAL HISTORY/PROBLEM LIST: 1. Stage IV bronchoalveolar-cell carcinoma as per above with slow progression of disease. 2. COPD. 3. Ischemic cardiomyopathy with an ejection fraction of 25 to 30 percent. 4. Hypertension. SOCIAL HISTORY: The patient smoked for approximately 37 years. He has been a nonsmoker since 1976. No alcohol use. No drug use. FAMILY HISTORY: Noncontributory to current presentation. REVIEW OF SYSTEMS: Notable for shortness of breath and increased pain in lower extremities PHYSICAL EXAMINATION: A well-developed, well-nourished male, resting comfortably and in no distress. He has multiple family members at his bedside. He appears alert and oriented. He has good memory of the last several days.vital signs: Blood pressure 137/90, heart rate 71, respiratory rate 19, oxygen saturation 98%. HEENT: Pupils are equal and reactive. Oropharynx is clear. Neck: Supple. Chest: Diminished breath sounds at right apex. Cardiac: Irregular irregular rhythm with normal S1 and normal S2. Abdomen: Soft. Extremities: Trace edema. LABORATORY AND DIAGNOSTIC DATA: White blood count 5.12, hemoglobin 10.6, platelet count 152,000. Sodium 143, potassium 2.9, chloride 102, bicarbonate 24, BUN 21, creatinine 1.4. ProBNP 3635. CT scan of the thorax reveals cardiomegaly with probable pulmonary hypertension, large mass in the right apex, increasing pulmonary nodules in the lower lobes bilaterally, mild pulmonary edema, small right-sided pleural effusion with slight increase in size. IMPRESSION: An 89-year-old with metastatic lung cancer, chronic obstructive pulmonary disease, hypoxemic respiratory failure, ischemic cardiomyopathy, who presents with ongoing clinical decline. No definite pneumonia identified on CT scan. He may have a component of heart failure given increase in proBNP, along with slight increase in pleural effusion. There are limited treatments available from my standpoint. RECOMMENDATIONS: 1. Single dose of Lasix early in the morning, to see if diuresis will help decrease his dyspnea. 2. Continue oxygen. 3. Consider Palliative Care consultation. His prognosis is poor. cc: Guilherme Ramos MD
[2019-07-06] MEDS: AMBIEN PO SCH (20:52)
[2019-07-06] MEDS: CHLORASEPTIC SORE THROAT LOZENGE MT PRN (20:52)
[2019-07-06] MEDS: ZOLOFT PO SCH (20:52)
[2019-07-07] MEDS: DUONEB (A & A) INH SCH ×6 (03:17→23:30)
[2019-07-07] MEDS: SOLU-MEDROL IV SCH ×3 (05:22→21:45)
[2019-07-07] MEDS: ZOSYN 3.375 GM in NS 50 ML IV SCH ×4 (05:24→23:51)
[2019-07-07] MEDS ORDERED: LASIX IV ONE (05:30)
[2019-07-07] MEDS: PROTONIX PO SCH (06:00)
[2019-07-07 06:27] LABS: URINE SOURCE CLEAN CATCH
[2019-07-07 06:29] LABS: BILIRUBIN URINE NEGATIVE (NEGATIVE); BLOOD URINE SMALL (NEGATIVE); COLOR YELLOW; GLUCOSE URINE NEGATIVE (NEGATIVE); KETONE URINE NEGATIVE (NEGATIVE); LEUKOCYTES URINE NEGATIVE (NEGATIVE); NITRITE URINE NEGATIVE (NEGATIVE); PROTEIN URINE 50 mg/dL (NEGATIVE); SP GRAVITY URINE 1.018; TURBIDITY URINE CLEAR (CLEAR); UROBILINOGEN URINE NORMAL (NORMAL)
[2019-07-07 06:31] LABS: UR EPITHELIAL CELLS <10 /HPF (<10); URINE BACTERIA NEGATIVE /HPF; URINE RBC <10 /HPF (<10); URINE WBC <10 /HPF (<10)
[2019-07-07 07:39] LABS: HEMATOCRIT 32.2 % (42.0-52.0); HEMOGLOBIN 10.5 g/dL (14.0-18.0); LYMPH# 0.15 X1000 (1.2-3.4); LYMPH% 1.8 % (20.5-51.1); MCH 29.9 PG (27-31); MCHC 32.6 g/dL (33-37); MCV 91.7 FL (81-99); MONO# 0.24 X1000 (0.11-0.59); MONO% 2.8 % (1.7-9.3); MPV 11.3 FL (7.4-10.4); NEUT# 8.16 X1000 (1.4-6.5); NEUT% 95.4 % (42.2-75.2); PLT 156 X1000 (130-400); RBC 3.51 XMIL (4.7-6.1); RDW 17.5 % (11.5-14.5); WBC 8.55 X1000 (4.8-10.8)
[2019-07-07 08:22] LABS: CALCIUM 8.5 mg/dL (8.8-10.2); CREATININE 1.7 mg/dL (0.7-1.2); POTASSIUM 3.4 mmol/L (3.5-5.1)
[2019-07-07 08:26] LABS: BANDS 2 % (0-1); LYMPHS 1 % (21-51); MONO 6 % (1-9); SEGS 89 % (42-75)
[2019-07-07] MEDS: ZYVOX 600 MG/D5W 600 MG/300 ML IVPB IV SCH ×2 (09:34→21:44)
[2019-07-07] MEDS: ZINC SULFATE PO SCH ×2 (09:35→21:45)
[2019-07-07] MEDS: IMDUR PO SCH ×2 (09:35→21:45)
[2019-07-07] MEDS: CARDIZEM CD PO SCH (09:35)
[2019-07-07] MEDS: COZAAR PO SCH ×2 (09:35→21:45)
[2019-07-07] MEDS: ELIQUIS PO SCH ×2 (09:35→21:45)
[2019-07-07] MEDS: LASIX PO SCH (09:35)
[2019-07-07] MEDS ORDERED: KLOR-CON PO ONE (13:07)
--- NOTE | 2019-07-07 13:46 | PROGRESS NOTE ---
DATE: 07/07/2019 SUBJECTIVE: The patient feels a little bit better compared with yesterday. He has been evaluated by Pulmonary Department and also Hematology/Oncology Department. He received a dose of Lasix today in the morning. I have requested an evaluation by Palliative Care. OBJECTIVE: Vital Signs: Temperature 97.6 degrees, pulse 86, respiratory rate 21, blood pressure 150/87, oxygen saturation 96 on 2 L of nasal cannula. HEENT: Head normocephalic, no trauma. PERRLA. Neck: Supple. No JVD. No masses. Central trachea. Chest: Crepitus at the level of the right lung, especially the middle and upper part of the chest. Some crepitus at the bases as well. Decreased breath sounds of the right upper thoracic area, scattered rhonchi. Abdomen: Soft, nontender, nondistended. No hepatosplenomegaly. Extremities: No edema, no clubbing, no cyanosis. Neurological examination: The patient is alert. He is oriented. He is following commands. He does have generalized weakness. LABORATORY: WBC 8.5, hemoglobin 10.5, hematocrit 32.2, platelets 156. Sodium 137, potassium 3.4, chloride 97, bicarbonate 23. BUN 27, creatinine 1.7, glucose 155, calcium 8.5. ASSESSMENT AND PLAN: 1. Respiratory failure due to bronchoalveolar carcinoma with progression of the right apical mass, followed by Dr. Galaviz and Pulmonary Department. We will continue breathing treatment. I will continue also with the same management. 2. Chronic atrial fibrillation. Continue with same management. 3. Ischemic cardiomyopathy with an ejection fraction of 25 to 30 percent, aware. 4. Chronic obstructive pulmonary disease. Continue home oxygen. 5. Congestive heart failure secondary to systolic and diastolic dysfunction. This patient's ejection fraction is around 25 to 30 percent. We will continue with the same management for now. He is getting diuretics today. 6. Chronic kidney disease, stable. This is his baseline. 7. Elevated D-dimer with a negative computed tomography angiogram for pulmonary embolism. 8. Possible underlying pneumonia. Continue with antibiotics, breathing treatment, oxygen supplementation. Overall, this patient has poor prognosis due to his multiple comorbidities, lung cancer and age. Palliative Care has been consulted. This patient is already DNR. cc: Brandan Hampton MD
[2019-07-07] MEDS: ULTRAM PO PRN (19:26)
--- NOTE | 2019-07-07 19:50 | PULMONOLOGY PROGRESS NOTE ---
DATE: 07/07/2019 SUBJECTIVE: The patient is awake, alert, and conversant. He reports his day has been "pretty good." OBJECTIVE: Vital signs: The patient has been afebrile for the last 24 hours. Blood pressure 143/82, heart rate 59, respiratory rate 19, oxygen saturation 98% on 2 L per nasal cannula. HEENT: Pupils are equal. Oropharynx is clear. Neck: Supple. Chest: Reveals diminished breath sounds right apex. Cardiac exam: S1, S2. Abdomen: Soft. Extremities: Without edema. LABORATORY DATA: Sodium 137, potassium 3.4, chloride 97, bicarbonate 23, BUN 27, creatinine 1.7. White blood count 8.55, hemoglobin 10.5, platelet 156,000. Urinalysis reveals a small amount of blood but no white blood cells and nitrite negative. IMPRESSION: An 89-year-old with: 1. Metastatic lung cancer. 2. Chronic obstructive pulmonary disease. 3. Acute hypoxemic respiratory failure. 4. Ischemic cardiomyopathy with component of heart failure. 5. Pleural effusion. DISCUSSION: An 89-year-old with problems outlined above. He may feel slightly better with an extra dose of Lasix, but it did appear to increase his BUN and creatinine. PLAN: 1. Continue current Lasix dosing. 2. Continue oxygen therapy. 3. Patient's performance status is poor. He is not likely a candidate for aggressive chemotherapy. 4. Await palliative care evaluation and goals of care discussion with family. cc: Guilherme Ramos MD [facility]
[2019-07-07] MEDS: AMBIEN PO SCH (21:45)
[2019-07-07] MEDS: ZOLOFT PO SCH (21:46)
[2019-07-08] MEDS: DUONEB (A & A) INH SCH ×6 (03:57→23:50)
--- NOTE | 2019-07-08 04:00 | HEMO/ONC PROGRESS NOTE ---
DATE: 07/07/2019 SUBJECTIVE: The patient is feeling a little bit better today. He denies any specific complaint. He is resting comfortably with family at bedside. He had a good night. OBJECTIVE: Vital signs: Temperature 97.6 degrees, pulse rate 86, respiratory rate 21, blood pressure 150/87, O2 saturation 96% on nasal cannula at 2 L. He is in 0/10 pain. General: A chronically ill-appearing, elderly male, in no acute distress. HEENT: Sclerae anicteric. PERRLA. Oral mucosa is dry. Cardiovascular: Normal S1, S2. Heart rate and rhythm irregular. Respiratory: Normal respiratory effort. Wheezes noted. Diminished breath sounds throughout. Gastrointestinal: Abdomen is soft, nontender, nondistended. Bowel sounds are present. Neurological: Awake, alert, and oriented. Skin: Warm, dry, and intact. Extremities: Trace edema noted. LABORATORY: WBC 8.55, hemoglobin 10.5, hematocrit 32.2, platelet count 156,000. Potassium 3.4, creatinine 1.7, calcium 8.5. ASSESSMENT AND PLAN: 1. Metastatic bronchioloalveolar carcinoma. Not much change. The patient is not currently on any treatment in the clinic. We continue to watch him with restaging scans every 3 months. His last PET scan showed his masses remain stable in size, as well as the mediastinal lymphadenopathy. We are taking the wait and watch approach. 2. Renal insufficiency. The patient's baseline creatinine has been around 1.7 in the clinic. Continue IV fluids. 3. Shortness of breath. Continue on oxygen per protocol. Other treatments per medical team. 4. Depression and anxiety. We will place the patient on Zoloft 50 mg nightly. 5. Deep vein thrombosis prophylaxis. Please get the patient out of bed 3 times a day. He is also on Eliquis 2.5 mg twice daily from his atrial fibrillation standpoint. Dictated by ZOYA Ness for Semaj Galaviz MD As above. I had a lengthy discussion with the patient and son. Also discussed with Dr. Naranjo. His scan per se does not reveal much change from a lung cancer standpoint, so his recent dyspnea may be in part to his CHF/COPD. Diurese as best as you can given his creatinine elevation. Family understand that he is not a candidate for chmeotherapy, but at the same time want to continue taking care of him and express some reluctance to hospice. Optimize CHF issues and discharge home when possible. Thank you. Semaj Galaviz MD cc: Semaj Galaviz MD [facility]
[2019-07-08] MEDS: SOLU-MEDROL IV SCH ×3 (06:26→21:37)
[2019-07-08] MEDS: PROTONIX PO SCH (06:26)
[2019-07-08] MEDS: ZOSYN 3.375 GM in NS 50 ML IV SCH ×3 (06:27→17:56)
[2019-07-08 07:48] LABS: CALCIUM 8.5 mg/dL (8.8-10.2); CREATININE 1.9 mg/dL (0.7-1.2)
[2019-07-08] MEDS: CARDIZEM CD PO SCH (09:20)
[2019-07-08] MEDS: ZINC SULFATE PO SCH ×2 (09:20→21:33)
[2019-07-08] MEDS: COZAAR PO SCH (09:20)
[2019-07-08] MEDS: ZYVOX 600 MG/D5W 600 MG/300 ML IVPB IV SCH ×2 (09:20→21:41)
[2019-07-08] MEDS: LASIX PO SCH (09:20)
[2019-07-08] MEDS: IMDUR PO SCH ×2 (09:20→21:33)
[2019-07-08] MEDS: ELIQUIS PO SCH ×2 (09:20→21:33)
[2019-07-08 11:34] LABS: URINE SOURCE CATH
[2019-07-08 11:37] LABS: BILIRUBIN URINE NEGATIVE (NEGATIVE); BLOOD URINE NEGATIVE (NEGATIVE); COLOR YELLOW; GLUCOSE URINE NEGATIVE (NEGATIVE); KETONE URINE NEGATIVE (NEGATIVE); LEUKOCYTES URINE NEGATIVE (NEGATIVE); NITRITE URINE NEGATIVE (NEGATIVE); PH URINE 5.5; PROTEIN URINE TRACE mg/dL (NEGATIVE); SP GRAVITY URINE 1.014; TURBIDITY URINE CLEAR (CLEAR); UROBILINOGEN URINE NORMAL (NORMAL)
[2019-07-08 11:39] LABS: UR EPITHELIAL CELLS <10 /HPF (<10); URINE BACTERIA NEGATIVE /HPF; URINE RBC <10 /HPF (<10); URINE WBC <10 /HPF (<10)
--- NOTE | 2019-07-08 12:58 | HEMO/ONC PROGRESS NOTE ---
DATE: 07/08/2019 SUBJECTIVE: The patient states he is feeling better today. He denies any pain. He appears comfortable this morning. He states his appetite is good, and he had a good night's sleep. OBJECTIVE: Vital Signs: Temperature 97.6 degrees, pulse rate 91, respiratory rate 21, blood pressure 156/87, O2 saturation 94% on nasal cannula at 2 L. He is in 0/10 pain. General: On physical examination, this is an elderly, chronically ill-appearing male in no acute distress. HEENT: Sclerae is anicteric. PERRLA. Oral mucosa is dry. Cardiovascular: Normal S1, S2. Heart rate and rhythm is irregular. Respiratory: Normal respiratory effort. Lung sounds are clear to auscultation today. Gastrointestinal: Abdomen is soft, nontender, nondistended. Bowel sounds are present. Neurological: Awake, alert, and oriented. Answers questions appropriately. Skin: Warm, dry and intact. Extremities: No edema noted. LABORATORY: No CBC drawn today. Creatinine 1.9, calcium 8.5. ASSESSMENT AND PLAN: 1. Metastatic bronchoalveolar carcinoma. The patient is continuing to feel some better. From our standpoint, there is not much change from a cancer standpoint on recent scans. The patient is not a candidate for any chemotherapy. We have had a long discussion with the son and family. The family at this time does not want to involve hospice. They would like to take him home and continue to care for him. We recommend continuing diuresis and optimizing his cardiovascular status. 2. Renal insufficiency. Patient's baseline creatinine has been around 1.7 in the clinic. Continue per medical management. 3. Shortness of breath. Continue on oxygen protocol and other treatments per medical team. 4. Depression and anxiety. Place the patient on Zoloft 50 mg at night. This seems to be working well without any side effects and deep vein thrombosis prophylaxis. Please continue to get the patient out of bed at least 3 times a day. He is also on Eliquis 2.5 mg twice daily from his atrial fibrillation standpoint. Please call if needed over the weekend. Dictated by ZOYA Ness for Semaj Galaviz MD cc: MD MAR Logan
[2019-07-08] MEDS ORDERED: XYLOCAINE 2% JELLY UROJECT TOP ONE (14:40)
--- NOTE | 2019-07-08 18:00 | PROGRESS NOTE ---
DATE: 07/08/2019 SUBJECTIVE: Patient is resting in bed. He seems to be tired. He has been having a problem urinating. He has been retaining urine. As per the family, he urinates a little bit at home, but frequently, and the same has been happening here. We scanned the patient and his bladder had more than 450 mL of urine. He tried to urinate by himself and he voided 50 mL, so a Ragland catheter has been placed. I had a conversation with Dr. Galaviz by phone. His tumor/cancer has been stable and has not been getting bigger for the past month. Just a small growth, but he is not going to offer any kind of treatment like chemotherapy at this point because of this patient's concurrent condition. We discussed also the possibility of involving Cardiology Department to see if we can help this patient's heart failure and I did it. He has been evaluated by Cardiology Department, but the dictation is not up yet. I did not see any big changes on his treatment either. Pulmonary Department has been following this patient also and they are also considering that this patient has poor prognosis, and I agree with that. As per the family members, his a few days ago, so he might be depressed also. I will continue treating this patient. His BUN and creatinine are trending up. I will get a new x-ray in the morning. I will continue following the recommendations of Oncology Department as well as Pulmonary and Cardiology Department, but I do believe he has poor prognosis due to his age, multiple comorbidities, and basically this patient's poor performance status. Palliative Care has been on board. OBJECTIVE: Vital Signs: Temperature 97.6 degrees, pulse 74, respiratory rate 21, blood pressure 148/86, oxygen saturation 100% on 2 L of nasal cannula. HEENT: Head, normocephalic, no trauma. PERRLA. Neck: Supple. No JVD. No masses. Central trachea. Chest: Crepitus especially at the level of the right lung, upper part, and at the bases. Decreased breath sounds at the right upper thoracic area as well with scattered rhonchi. Abdomen: Soft, nontender, nondistended. No hepatosplenomegaly. Extremities: He does have clubbing. No cyanosis. Neurological: The patient is awake. He is alert. He is following commands. He is oriented. It is hard to understand what this patient says. He is tolerating p.o. LABORATORY DATA: Sodium 135, potassium 4, chloride 96, bicarbonate 21, BUN 34, creatinine 1.9, glucose 153, calcium 8.5. ASSESSMENT AND PLAN: 1. 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 Galaviz and Pulmonary Department. We will continue with breathing treatment. Basically, I will continue with the same management. 2. Chronic atrial fibrillation. Continue with the same management. 3. Ischemic cardiomyopathy with heart failure, ejection fraction around 25 to 30 percent. Aware. He is still having pulmonary edema. 4. Chronic obstructive pulmonary disease. Continue with home oxygen and breathing treatment. 5. 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 Cardiology Department has been on board. Ejection fraction around 25 to 30 percent. I would like to be more aggressive with diuretics, but the kidney function is getting worse. 6. Chronic kidney disease. BUN and creatinine are trending up. We will monitor this closely. 7. Elevated D-dimer with a negative CT angiogram for pulmonary embolism. 8. Possible underlying pneumonia. I will continue with antibiotics. I am not quite sure if this patient has pneumonia. Like I mentioned before at the beginning of this note, this patient has poor prognosis. He has multiple comorbidities including cancer, COPD, heart failure, kidney disease, generalized weakness, and probably also he has depression due to his recent loss. cc: Brandan Hampton MD
--- NOTE | 2019-07-08 18:58 | CONSULTATION ---
DATE OF CONSULTATION: 07/08/2019 IMPRESSION: 1. Chronic small right pleural effusion dating back over a year in association with a large non- small cell lung cancer in the right upper thorax. 2. Stage IV non-small cell lung cancer. 3. Ischemic cardiomyopathy. 4. Severe chronic obstructive pulmonary disease requiring chronic home oxygen. 5. Atrial fibrillation. 6. Hypertension. 7. Chronic kidney disease. 8. Poor functional status. RECOMMENDATIONS: 1. Given the emergence of prerenal azotemia with diuresis, would hold off on further diuresis as he appears to be showing evidence of intravascular volume depletion. Suggest resuming usual oral diuretic. 2. He has a pretty sizable tumor in the right upper thorax and at present does not appear to have superior vena cava syndrome but this is certainly a future possibility. 3. Given poor functional status, advanced age, comorbidities including ischemic cardiomyopathy and advanced stage lung cancer, his prognosis is very poor. This was discussed at length with the patient. It was suggested strongly that treatment should be geared toward Palliation/quality of life. Certainly hospice is a consideration. HISTORY: This 89-year-old -[place] male with past history of stage IV non-small cell lung cancer, severe COPD, ischemic cardiomyopathy, hypertension, and severe COPD requiring chronic oxygen was recently admitted with increased dyspnea. He has had some cough but has not produced much in the way of sputum. He was found to have a modest increase in chronic right pleural effusion. He was diuresed and treated with parenteral antibiotics as well as treatment for COPD. His lab data suggested development prerenal azotemia. His family has noted that he is not as alert today, seems to be weak. There has been no chest pain. He has not really been able to produce much in the way of sputum. Cardiology is consulted for followup of his congestive heart failure. He has severe ischemic cardiomyopathy with left ejection fraction 25 to 30 percent. PAST MEDICAL HISTORY: 1. Stage IV non-small cell lung cancer with chronic right pleural effusion. 2. Severe chronic obstructive pulmonary disease requiring chronic oxygen. 3. Ischemic cardiomyopathy with left ejection fraction 25 to 30 percent. 4. Hypertension. 5. Atrial fibrillation. 6. Chronic kidney disease. PAST SURGICAL HISTORY: Includes unspecified foot surgery, previous coronary angioplasty/stenting of the right coronary artery, and right carotid endarterectomy. ALLERGIES: He has no known drug allergies. MEDICATIONS: As listed. SOCIAL HISTORY: He has history of previous smoking in the past and smoked for approximately 37 years. He does not use alcohol. He is a and his of many years a few weeks ago. FAMILY HISTORY: Negative for premature coronary disease. REVIEW OF SYSTEMS: Pulmonary: Noteworthy for cough as well as some tendency for wheezing. He has not been able to produce much sputum. Gastrointestinal: Negative. Constitutional negative. Remainder of review of systems negative/noncontributory with 14 total systems reviewed. PHYSICAL EXAMINATION: General: This is a elderly male, in no distress on supplemental oxygen per nasal cannula. Vital signs: Blood pressure 156/87. Heart rate 91, oxygen saturation 94% on nasal cannula oxygen. HEENT: Extraocular movements intact. Mucous membranes moist. Neck: Supple. There are no carotid bruits. Chest: Reveals prominent scattered expiratory rhonchi. Cardiac: Reveals easily audible heart sounds. An irregular rate and rhythm is demonstrated without appreciable murmur or gallop. Abdomen: Soft. Bowel sounds normal. Extremities: Without edema. Neurologic: Reveals him to be awake and responsive. Speech is fluent. Moves all 4 extremities equally well. Skin: Warm and dry. Psychiatric: Reveals mood to be appropriate. PERTINENT DATA: Twelve lead EKG from 07/06/2019 demonstrates atrial fibrillation with occasional premature ventricular or aberrantly conducted complex and nonspecific ST abnormality. LABORATORY DATA: Includes a white blood cell count 8.55, hematocrit 32.2, hemoglobin 10.5, platelet count 156,000. Sodium 135, potassium 4.0, chloride 96, carbon dioxide 21, BUN 34, creatinine 1.9. Glucose 153. cc: Myles Tobin MD
[2019-07-08] MEDS: AMBIEN PO SCH (21:31)
[2019-07-08] MEDS: ZOLOFT PO SCH (21:32)
[2019-07-09] MEDS: ZOSYN 3.375 GM in NS 50 ML IV SCH ×6 (00:19→17:59)
[2019-07-09] MEDS: DUONEB (A & A) INH SCH ×5 (05:03→19:30)
[2019-07-09] MEDS: SOLU-MEDROL IV SCH ×3 (05:50→21:07)
[2019-07-09] MEDS: PROTONIX PO SCH (06:35)
--- NOTE | 2019-07-09 07:25 | Diag Imaging Result Doc PS360 ---
EXAM: CHEST-PORTABLE - 07/09/2019 HISTORY: dyspnea, effusions TECHNIQUE: Portable chest COMPARISON: 07/05/2019 FINDINGS: There are cardiomegaly and interstitial edema similar to prior. There is been apparent decrease in right pleural effusion. There is been mild increase in right upper lobe atelectasis. There is no pneumothorax identified. IMPRESSION: Stable cardiomegaly and interstitial edema. Decrease in right pleural effusion. Mild increase in right upper lobe atelectasis. Electronically signed by Mello Batista 07/09/2019 7:22 AM
[2019-07-09 08:16] LABS: HEMATOCRIT 32.6 % (42.0-52.0); HEMOGLOBIN 10.7 g/dL (14.0-18.0); LYMPH# 0.11 X1000 (1.2-3.4); LYMPH% 1.9 % (20.5-51.1); MCH 29.8 PG (27-31); MCHC 32.8 g/dL (33-37); MCV 90.8 FL (81-99); MONO# 0.28 X1000 (0.11-0.59); MONO% 4.8 % (1.7-9.3); MPV 10.4 FL (7.4-10.4); NEUT# 5.46 X1000 (1.4-6.5); NEUT% 93.3 % (42.2-75.2); PLT 165 X1000 (130-400); RBC 3.59 XMIL (4.7-6.1); RDW 17.5 % (11.5-14.5); WBC 5.85 X1000 (4.8-10.8)
[2019-07-09 09:24] LABS: CALCIUM 7.7 mg/dL (8.8-10.2); CREATININE 1.9 mg/dL (0.7-1.2); POTASSIUM 3.6 mmol/L (3.5-5.1)
[2019-07-09] MEDS: CARDIZEM CD PO SCH (10:05)
[2019-07-09] MEDS: ELIQUIS PO SCH (10:06)
[2019-07-09] MEDS: IMDUR PO SCH ×2 (10:06→20:48)
[2019-07-09] MEDS: ZYVOX 600 MG/D5W 600 MG/300 ML IVPB IV SCH ×2 (10:07→20:51)
[2019-07-09] MEDS: ZINC SULFATE PO SCH ×2 (10:07→20:49)
[2019-07-09] MEDS: LASIX PO SCH (10:07)
--- NOTE | 2019-07-09 13:24 | PROGRESS NOTE ---
DATE: 07/09/2019 SUBJECTIVE: This patient is resting comfortably in bed. He seems to be more active today compared with yesterday. He is eating by himself. Family members at the bedside. Kidney function about the same compared with yesterday. Vital signs are stable. I discussed the case with the family. Probably we can keep him in a couple more days and discharge this patient home if he is doing okay. OBJECTIVE: Vital Signs: Temperature 98.7 degrees, pulse 88, respiratory rate 22, blood pressure 137/83, oxygen saturation 97% on 2 L of nasal cannula. HEENT: Head normocephalic, no trauma. PERRLA. Neck: Supple. No JVD. No masses. Central trachea. Chest: Crepitus, especially at the level of the right lung upper part and bases. Decreased breath sounds at the level of the right upper thoracic area as well as scattered rhonchi. Abdomen: Soft, nontender, nondistended. No hepatosplenomegaly. Extremities: He does have clubbing. No cyanosis. Neurological: The patient is awake. He is alert. He is following commands. He is tolerating p.o. LABORATORY: WBC 5.8, hemoglobin 10.7, hematocrit 32.6, platelets 165,000. Sodium 138, potassium 3.6, chloride 97, bicarbonate 23, BUN 37, creatinine 1.9, glucose 140, calcium 7.7. ASSESSMENT AND PLAN: 1. 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 Also this patient might have pulmonary fibrosis. Pulmonary Department as well as Hematology/Oncology Department and Cardiology Department on board. We will continue with same management. I believe he is getting a little bit better. 2. Chronic atrial fibrillation. Continue with same management. 3. Ischemic cardiomyopathy with heart failure, ejection fraction around 25 to 30 percent. He still has some pulmonary edema but is better compared with admission. 4. Chronic obstructive pulmonary disease. Continue home oxygen and breathing treatment. 5. CKD, BUN and creatinine about the same compared with yesterday, a little bit elevated compared with baseline. 6. Elevated D-dimer with negative CT angiogram for pulmonary embolism, aware. 7. Possible underlying pneumonia. Continue with antibiotics. This patient overall has poor prognosis due to his age, and comorbidities. He also have generalized weakness. Palliative Care on board. cc: Brandan Hampton MD
--- NOTE | 2019-07-09 16:48 | PULMONOLOGY PROGRESS NOTE ---
DATE: 07/09/2019 SUBJECTIVE: The patient is arousable to alert. He denies complaints. He has no increased work of breathing at rest. OBJECTIVE: Vital Signs: The patient has been afebrile for the last 24 hours. Blood pressure 137/83, heart rate 73, respiratory rate 12, oxygen saturation 99% on 2 L per nasal cannula. HEENT: Pupils are equal and reactive. Oropharynx appears clear. Neck: Supple. Chest: Reveals decreased breath sounds right apex. Cardiac: S1-S2. Abdomen: Soft. Extremities: Without edema. LABORATORIES: Chest x-ray reveals decrease in right-sided effusion with stable right upper lobe mass. White blood count 5.85, hemoglobin 10.7, platelet count 165,000. Sodium 138, potassium 3.6, chloride 97, bicarbonate 23, BUN 37, creatinine 1.9. IMPRESSION: An 89-year-old with 1. Metastatic lung cancer. 2. Chronic obstructive pulmonary disease. 3. Acute hypoxemic respiratory failure. 4. Ischemic cardiomyopathy. 5. Pleural effusion. 6. Chronic renal insufficiency. DISCUSSION: 89-year-old with problems outlined above. The patient is not a candidate for additional treatments at this time. After discussion with the palliative care nurse, family reports a plan to take Mr. Leong home to hospice with comfort measures. RECOMMENDATION: 1. Agree with transitioning patient back to oral Lasix. 2. Continue oxygen. 3. Anticipate discharge home with hospice. cc: Guilherme Ramos MD
[2019-07-09] MEDS: AMBIEN PO SCH (20:48)
[2019-07-09] MEDS: ZOLOFT PO SCH (20:49)
[2019-07-10] MEDS: DUONEB (A & A) INH SCH ×7 (00:22→23:54)
[2019-07-10] MEDS: ZOSYN 3.375 GM in NS 50 ML IV SCH ×4 (04:54→22:42)
[2019-07-10] MEDS: SOLU-MEDROL IV SCH ×3 (05:41→22:41)
[2019-07-10 08:22] LABS: CALCIUM 8.1 mg/dL (8.8-10.2); CREATININE 1.8 mg/dL (0.7-1.2); POTASSIUM 3.3 mmol/L (3.5-5.1)
[2019-07-10] MEDS: PROTONIX PO SCH (10:43)
[2019-07-10] MEDS: IMDUR PO SCH ×2 (10:44→20:38)
[2019-07-10] MEDS: ZYVOX 600 MG/D5W 600 MG/300 ML IVPB IV SCH ×2 (10:44→20:35)
[2019-07-10] MEDS: CARDIZEM CD PO SCH (10:44)
[2019-07-10] MEDS: ZINC SULFATE PO SCH ×2 (10:44→20:38)
[2019-07-10] MEDS: LASIX PO SCH (10:44)
--- NOTE | 2019-07-10 14:49 | PROGRESS NOTE ---
DATE: 07/10/2019 SUBJECTIVE: This patient is resting comfortably in bed. Actually, he is sleeping. I woke him up, and he was following commands. He was answering some of my questions. Family members at the bedside. They were concerned about hematuria, but his hemoglobin has been always between 10.5 and 10.9. Actually, yesterday it was 10.7. I will replace his potassium, which was low at 3.3. OBJECTIVE: Vital Signs: Temperature 98.2 degrees, pulse 68, respiratory rate 20, blood pressure 170/80, oxygen saturation 98 on 2 L of nasal cannula. HEENT: Head normocephalic. No trauma. PERRLA. Neck: Supple. No JVD. No masses. Central trachea. Chest: Crepitus, especially at the level of the right lung upper part and bases. Decreased breath sounds at the right upper thoracic area with some rhonchi. Abdomen: Soft, nontender, nondistended. No hepatosplenomegaly. Extremities: He does have some clubbing. No cyanosis. Neurological: The patient is sleepy, but arousable. He is oriented. He is following commands. He is tolerating p.o. LABORATORY DATA: Sodium 140, potassium 3.3, chloride 101, bicarbonate 23, BUN 33, creatinine 1.8, glucose 183, calcium 8.1. ASSESSMENT AND PLAN: 1. Respiratory failure, likely multifactorial. 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 Also, this patient might have pulmonary fibrosis. Pulmonary Department as well as Cardiology Department following this patient. Hematology/Oncology Department on board. We will continue with the same management. I believe he is a little bit better compared with admission. 2. Chronic atrial fibrillation. Continue with the same management. 3. Ischemic cardiomyopathy with heart failure. Ejection fraction 25% to 30%. He still has some pulmonary edema, but it is better compared with admission. 4. Chronic obstructive pulmonary disease. Continue with home oxygen and breathing treatment. 5. Chronic kidney disease. BUN and creatinine are better compared with yesterday, a little bit. Will continue with the same management for now. 6. Elevated D-dimer with a negative CT angiogram, which ruled out pulmonary embolism. He is on Eliquis, which has been on hold due to apparent mild hematuria, and apparently this patient had a coffee-grounds emesis, but the family denies that. I will monitor for now. 7. Possible underlying pneumonia. Continue with antibiotics, which I will stop at the moment of discharge. Overall, this patient has poor prognosis due to his age, multiple comorbidities, and generalized weakness. Palliative Care is on board, and hopefully tomorrow we will talk about discharge plan, and probably we can discharge him tomorrow if the patient is stable. cc: Brandan Hampton MD
[2019-07-10] MEDS: ULTRAM PO PRN (20:37)
[2019-07-10] MEDS: AMBIEN PO SCH (20:37)
[2019-07-10] MEDS: ZOLOFT PO SCH (20:38)
[2019-07-11] MEDS: DUONEB (A & A) INH SCH ×6 (03:45→22:39)
[2019-07-11] MEDS: SOLU-MEDROL IV SCH ×3 (05:43→21:03)
[2019-07-11] MEDS: ZOSYN 3.375 GM in NS 50 ML IV SCH ×3 (05:43→18:07)
[2019-07-11] MEDS: PROTONIX PO SCH (06:26)
[2019-07-11 07:39] LABS: HEMATOCRIT 34.9 % (42.0-52.0); HEMOGLOBIN 11.2 g/dL (14.0-18.0); LYMPH# 0.08 X1000 (1.2-3.4); LYMPH% 1.5 % (20.5-51.1); MCH 29.8 PG (27-31); MCHC 32.1 g/dL (33-37); MCV 92.8 FL (81-99); MONO# 0.09 X1000 (0.11-0.59); MONO% 1.7 % (1.7-9.3); MPV 10.7 FL (7.4-10.4); NEUT# 5.14 X1000 (1.4-6.5); NEUT% 96.8 % (42.2-75.2); PLT 171 X1000 (130-400); RBC 3.76 XMIL (4.7-6.1); RDW 17.4 % (11.5-14.5); WBC 5.31 X1000 (4.8-10.8)
[2019-07-11 07:54] LABS: CALCIUM 7.9 mg/dL (8.8-10.2); CREATININE 1.7 mg/dL (0.7-1.2); POTASSIUM 3.3 mmol/L (3.5-5.1)
[2019-07-11] MEDS: CHLORASEPTIC SORE THROAT LOZENGE MT PRN ×2 (07:57→14:26)
[2019-07-11] MEDS: CARDIZEM CD PO SCH (09:22)
[2019-07-11] MEDS: ZYVOX 600 MG/D5W 600 MG/300 ML IVPB IV SCH ×2 (09:22→21:01)
[2019-07-11] MEDS: ZINC SULFATE PO SCH ×2 (09:22→21:04)
[2019-07-11] MEDS: IMDUR PO SCH ×2 (09:22→21:05)
[2019-07-11] MEDS: LASIX PO SCH (09:23)
[2019-07-11] MEDS ORDERED: KLOR-CON PO ONE (10:29)
--- NOTE | 2019-07-11 12:16 | Extremity Venous Study ---
PROCEDURE NAME: Venous U/S Bilateral Legs - 07/06/2019 BRUSH OR BROOM CUTTER: [place]. REFERRING PHYSICIAN: Dr. Naranjo. INDICATION: Rule out DVT. FINDINGS: Deep and superficial veins of the bilateral lower extremities were visualized along their course. All veins were noted to be compressible with forward flow, and no evidence of intraluminal thrombus. SUMMARY: No deep or superficial venous thrombosis seen in the bilateral lower extremities. cc: MD Brandan Underwood MD
--- NOTE | 2019-07-11 14:02 | PROGRESS NOTE ---
DATE: 07/11/2019 SUBJECTIVE: Patient is resting comfortably in bed. He is weak. He was following commands and answering my questions. His son is at the bedside. I showed him all the results and the vital signs, this patient seems to be stable enough to go home with or without hospice, his son seems to understand. They will meet today with Palliative Care, but apparently they want to go home tomorrow and probably with hospice. I explained to the son that they can continue with his home medications at home even with hospice and if Dr. Galaviz wants to continue with chemotherapy or radiotherapy at some point, they can just stop hospice care and go ahead and get the treatment. He seems to understand. OBJECTIVE: Vital Signs: Temperature 98.6 degrees, pulse respiratory rate 15, blood pressure 159/85, oxygen saturation 100% on 2 L of nasal cannula. HEENT: Head normocephalic, no trauma. PERRLA. Neck: Supple. No JVD. No masses. Central trachea. Chest: Crepitus, especially at the level of the right upper lung and bases. Decreased breath sounds mostly at the right upper thoracic area with some rhonchi. Abdomen: Soft, nontender, nondistended. No hepatosplenomegaly. Extremities: He does have some clubbing. No cyanosis. Neurological: This patient is awake, alert. He is following commands. He is able to recognize family members at the bedside, his son. He is answering to some of my questions. He does have generalized weakness. LABORATORY: WBC 5.3, hemoglobin 11.2, hematocrit 34.9, platelets 171,000. Sodium 140, potassium 3.3, chloride 100, bicarbonate 27, BUN 30, creatinine 1.7, glucose 174, calcium 7.9. ASSESSMENT AND PLAN: 1. Respiratory failure, likely multifactorial. I do believe this is his baseline. 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 Also, this patient might have some pulmonary fibrosis, Pulmonary Department as well as Cardiology Department following this patient. Hematology/Oncology Department on board. We will continue with the same management. I believe he is better compared with admission and I do believe he is ready to go home. 2. Chronic atrial fibrillation. Continue with the same management. 3. Ischemic cardiomyopathy with heart failure, ejection fraction 25% to 30%. He still has some mild pulmonary edema, but better compared with admission. 4. Chronic obstructive pulmonary disease. Continue with home oxygen and breathing treatment. 5. Chronic kidney disease. BUN and creatinine are at baseline. 6. Elevated D-dimer with negative CT angiogram, which ruled out pulmonary embolism. He is on Eliquis. 7. Possible underlying pneumonia. Continue with antibiotics which we will stop at the moment of discharge. I believe he has been treated already. Overall, this patient seems to be doing a little bit better compared with admission. He does have poor prognosis due to his multiple comorbidities including lung cancer, CHF, CKD, generalized weakness, and also age. The plan is to send this patient home today or tomorrow with or without Hospice. Palliative Care will have a meeting with the family today at 3 p.m. and they will let me know. cc: Brandan Hampton MD
[2019-07-11] MEDS: ULTRAM PO PRN ×2 (14:26→21:05)
[2019-07-11] MEDS: ELIQUIS PO SCH ×2 (16:45→21:05)
[2019-07-11] MEDS: ZOLOFT PO SCH (21:05)
[2019-07-11] MEDS: COZAAR PO SCH (21:05)
[2019-07-11] MEDS: AMBIEN PO SCH (21:05)
[2019-07-12] MEDS: ZOSYN 3.375 GM in NS 50 ML IV SCH ×3 (00:14→11:50)
[2019-07-12] MEDS: DUONEB (A & A) INH SCH ×3 (03:18→11:35)
[2019-07-12] MEDS: SOLU-MEDROL IV SCH (05:11)
[2019-07-12] MEDS: PROTONIX PO SCH (06:29)
[2019-07-12] MEDS: ZYVOX 600 MG/D5W 600 MG/300 ML IVPB IV SCH (09:35)
[2019-07-12] MEDS: LASIX PO SCH (09:36)
[2019-07-12] MEDS: ELIQUIS PO SCH (09:36)
[2019-07-12] MEDS: COZAAR PO SCH (09:36)
[2019-07-12] MEDS: CARDIZEM CD PO SCH (09:36)
[2019-07-12] MEDS: ZINC SULFATE PO SCH (09:36)
[2019-07-12] MEDS: IMDUR PO SCH (09:36)
[2019-07-12] MEDS: ULTRAM PO PRN (09:56)
[2019-07-12 11:55] VITALS: BP 159/70
--- NOTE | 2019-07-12 12:45 | DISCHARGE SUMMARY ---
ADMISSION DATE: 07/05/2019 DISCHARGE DATE: 07/11/2019 DISCHARGE DIAGNOSES: 1. Respiratory failure, likely multifactorial. 2. 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 3. Congestive heart failure. 4. Chronic atrial fibrillation. 5. Ischemic cardiomyopathy with heart failure, ejection fraction 25 to 30 percent. 6. Chronic obstructive pulmonary disease. 7. Chronic kidney disease. 8. Elevated D-dimer with negative CT angiogram. 9. Possible underlying pneumonia, already treated. 10. History of atrial fibrillation, on anticoagulation. PROCEDURES PERFORMED: Chest x-ray dated 07/05/2019, impression: Cavitary mass in the right apex, right pleural effusion, cardiomegaly and mild pulmonary edema. CT angiogram of the chest dated 07/05/2019, impression: Small right pleural effusion, increased from prior, there is no pulmonary embolism and stable severe cardiomegaly with right heart enlargement. Stable right opacified area in the right lung apex. Stable to enlarging bilateral pulmonary nodules in the lower lobes, stable interstitial pulmonary edema in the lung bases, right greater than left, there is a small right pleural effusion that has increased since prior and numerous stable cysts in the kidneys, there are moderate degenerative changes of the spine. No acute or suspicious bony lesion. Venous Doppler ultrasound of the lower extremity dated 07/06/2019, impression: No DVT or superficial venous thrombosis. Chest x-ray dated 07/09/2019, impression: Stable cardiomegaly and interstitial edema, decrease in right pleural effusion, mild increase in the right upper lobe atelectasis. CONSULTS: Hematology/Oncology Department, Dr. Galaviz. Pulmonary Department, Guilherme Ho. Cardiology Department, Myles Simon. HOSPITAL COURSE: 89-year-old -[place] male with multiple comorbidities including right upper bronchoalveolar carcinoma with a progression of the right apical mass, atrial fibrillation, CHF with an ejection fraction of 25 to 30 percent, CKD, COPD, hypertension, generalized weakness, recently he lost his a couple weeks ago, and probably he is depressed, admitted due to increasing shortness of breath for a few days, when we admitted this patient he was tachypneic, short of breath at rest, respiratory rate close to the 30s and sometimes in the 30s. No fever. No chills. No chest pain or palpitations. He does have a productive cough, although he felt secretions are so thick that he is having trouble getting them out, we did a pulmonary angiogram to rule out PE, and actually there is no pulmonary emboli, but there is a cardiomegaly with right heart enlargement. Right lung apex is opacified for the mass, because of the elevated D-dimer also, we did a venous Doppler ultrasound that was negative. Hematology/Oncology department was consulted and the mass itself is not getting too much bigger. It is growing slowly, but this patient was not well compensated upon admission. He has pulmonary edema and respiratory failure, he was started on some diuretics, breathing treatment, and also antibiotics. Pulmonary Department and Cardiology Department evaluated this patient and they have readjusted his medications. We have several discussions about hospice care and/or just home health to go home with. We discussed the resuscitation status and this patient was basically full code, like I mentioned before, multiple discussions with multiple family members were done and at the end, they have decided to go home today since this patient is feeling much better and he seems to be more stable and actually the patient wants to go home, they are not going home with hospice, they will continue with the treatment that he is getting basically during this hospitalization except antibiotics because he already completed 7 days of treatment and I do not have any good source of infection inside the lungs. He probably had a postobstructive pneumonia due to the lung mass, the patient has been tolerating p.o. He is weak. He has been having a decent urine output. He will be discharged today. His prognosis is poor, though. VITAL SIGNS: Temperature 98.6 degrees, pulse 78, respiratory rate 15, blood pressure 159/85, oxygen saturation 100% on 2 L of nasal cannula. HEENT: Head normocephalic, no trauma. PERRLA. Neck: Supple. No JVD. No masses. Central trachea. Chest crepitus, especially at the level of the right upper lung and bases. Decreased breath sounds mostly at the right upper thoracic area with some rhonchi. Abdomen: Soft, nontender, nondistended. No hepatosplenomegaly. Extremity: He does have some clubbing, no cyanosis. Decreased muscle mass. Neurological Examination: The patient is awake. He is following commands. He was able to recognize family members at the bedside, his son today. He was answering to some of my questions but he does have generalized weakness. LABORATORY: WBC 5.3, hemoglobin 11.2, hematocrit 34.9, platelets 171,000, sodium 140, potassium 3.3, chloride 100, bicarbonate 27, BUN 30, creatinine 1.7, glucose 174, calcium 7.9. DISCHARGE MEDICATIONS: Acetaminophen 650 mg p.o. q. 6 hours as needed for fever, Eliquis 2.5 mg p.o. b.i.d., benzocaine/menthol lozenge as needed, diltiazem CD 180 mg p.o. daily, Lasix 40 mg p.o. daily, isosorbide mononitrate ER 30 mg p.o. b.i.d., losartan 50 mg p.o. b.i.d., Medrol Dosepak 4 mg p.o. as directed, pantoprazole 40 mg p.o. daily, sertraline 50 mg p.o. at bedtime, simvastatin 20 mg p.o. at bedtime, tramadol 50 mg p.o. q. 6 hours as needed for pain. Zinc sulfate 220 mg p.o. b.i.d. and Ambien 10 mg p.o. at bedtime. FOLLOWUP: With his primary care doctor in one week. Also recommended to follow with Dr. Galaviz, they need to call for an appointment. Overall, his prognosis is poor due to his multiple comorbidities, lung cancer, age, and inactivity, family seems to understand. TIME DISCHARGING THIS PATIENT: 40 minutes. cc: Brandan Hampton MD
--- NOTE | 2019-07-13 10:09 | DISCHARGE SUMMARY ---
ADMISSION DATE: 07/05/2019 DISCHARGE DATE: 07/12/2019 ADDENDUM: The patient with multifactorial respiratory failure related to advancing lung cancer, pulmonary fibrosis, systolic congestive heart failure and chronic obstructive pulmonary disease. The patient was admitted initially for increasing shortness of breath. He did not have any PE or pneumonia but was found to have significant progression of his lung cancer on top of his chronic comorbidities including significant heart failure and chronic obstructive pulmonary disease. Despite the lack of clear evidence of pneumonia, he was given a course of antibiotics for approximately 8 days, which did not seem to make much difference. The patient did have some symptomatic improvement, although he continued to require oxygen. After extensive discussion, the family eventually elected to take him home with home health. The patient going home today as soon as equipment is delivered. Patient's overall prognosis extremely poor. For further details see full discharge summary dated 07/11/2019.
== END 2019-07-12 14:48 | disposition home health service (06) | DRG 180 ==
LOC: ED 10:05 → SUATTDRO 20:12 → 3N 20:12
PROVIDERS: ATTEND Internal Medicine

== ENCOUNTER 2019-09-27 14:17 | Inpatient (IN) ==
[2019-09-27] MEDS ORDERED: NS 1,000 ML IV ONE (14:43)
[2019-09-27] MEDS ORDERED: SOLU-MEDROL IV ONE (14:43)
--- NOTE | 2019-09-27 14:51 | PROVIDER DOCUMENTATION ---
HPI-Respiratory General - General Chief Complaint: SEPSIS ALERT - D Stated Complaint: SOB Time Seen by Provider: 09/27/19 14:19 Source: patient Allergies/Adverse Reactions: Patient Allergies Allergy/AdvReac Type Severity Reaction Status Date / Time No Known Allergies Allergy Verified 07/16/19 16:35 Home Medications: Home Medication List Medication Instructions Recorded Confirmed Last Taken Type Apixaban [Eliquis] 2.5 mg PO BID 10/08/17 09/27/19 07/16/19 History Pantoprazole [Protonix] 40 mg PO DAILY 10/08/17 09/27/19 07/16/19 History Losartan [Cozaar] 50 mg PO BID tablet 04/27/18 09/27/19 07/16/19 Rx Isosorbide Mononitrate [Isosorbide 30 mg PO BID 08/20/18 09/27/19 07/16/19 History Mononitrate ER] Diltiazem C.d. [Cardizem Cd] 180 mg PO DAILY #30 cap 10/24/18 09/27/19 07/16/19 Rx Furosemide [Lasix] 40 mg PO DAILY #30 tab 10/24/18 09/27/19 07/16/19 Rx Metoprolol Succinate E.r. [Toprol 25 mg PO DAILY 09/27/19 09/27/19 Unknown Hi story Xl] Simvastatin 20 mg PO QHS 09/27/19 09/27/19 Unknown History - History of Present Illness-Resp Nature of Presenting Problem: 89 yr old M with a hx of HF, HTN, DM, A-fib, presenting with worsening SOB over the past 24 hours. HIs son accompanies him and gives most of the story - the pt is supposed to be on diuretics, and it is possible he did not take his medicine for a couple of days, due to the effect of increased urination; in any case, the pt became acutely short of breath last night, with continued worsening into this morning. The pt himself states he felt like he "was going to give out". The pt has had two breathing treatments - one at home, and one via EMS - prior to arrival. Review of Systems - Adult - REVIEW OF SYSTEMS - ADULT Constitutional: reports: no symptoms reported Eyes: reports: no symptoms reported Ears, Nose, Mouth & Throat: reports: no symptoms reported Cardiovascular: reports: no symptoms reported Respiratory: reports: see HPI Gastrointestinal: reports: no symptoms reported Genitourinary: reports: no symptoms reported Musculoskeletal: reports: no symptoms reported Integumentary: reports: no symptoms reported Neurological: reports: no symptoms reported Psychiatric: reports: no symptoms reported Endocrine: reports: no symptoms reported Past History - Adult - PAST MEDICAL HISTORY-ADULT Review of Records: reports: Old Records Reviewed, Nursing Assessment Review Major Childhood Illnesses: reports: denies history Cardiovascular: reports: A-Fib, CAD, CHF, HTN, hyperlipidemia, PAD Respiratory: reports: cancer Gastrointestinal: reports: denies history Obstetrical/Gynecological: reports: denies history Genitourinary: reports: denies history Musculoskeletal: reports: arthritis, other (gout) Neurological: reports: CVA Psychiatric: reports: denies history Endocrine/Immune: reports: denies history Other Conditions: reports: denies history - PRIOR SURGERIES/PROCEDURES Surgical/Procedure History: reports: cardiac stent, orthopedic (extremity) (right foot), other (Stents) - PRIOR HOSPITALIZATIONS Prior Hospitalizations: reports: none - IMMUNIZATION STATUS Childhood Immunizations: See Nurse Assessment Flu Vaccine: See Nurse Assessment - FAMILY HISTORY Family History: reviewed, not pertinent - SOCIAL HISTORY Living Situation: family Physical Exam-General - PHYSICAL EXAM-ADULT Initial Vital Signs Reviewed: Yes - CONSTITUTIONAL General Appearance: alert, mild distress - EYES Eyes: PERRL/EOMI - HEAD, EARS, NOSE, MOUTH & THROAT HENMT: normocephalic/atraumatic, moist mucous membranes - RESPIRATORY Respiratory: chest non-tender, respiratory distress, crackles, rhonchi - CARDIOVASCULAR Cardiovascular: regular rate, rhythm - GASTROINTESTINAL (ABDOMEN) Abdominal Exam: normal bowel sounds, non tender, soft - MUSCULOSKELETAL Extremity: no pedal edema, no calf tenderness - SKIN Integumentary: normal color, normal turgor, warm/dry - NEUROLOGIC Neurologic: grossly normal. negative: facial droop - PSYCHIATRIC Psych/Mental Status: normal mood/affect Progress - PLAN OF CARE/RESULTS Progress/Plan/Lab Results: Vital Signs - 8 hr 09/27/19 14:20 09/27/19 15:47 Temperature 98.1 F Pulse Rate 98 H 98 H Respiratory Rate 22 22 Blood Pressure 144/81 O2 Sat by Pulse Oximetry 100 Laboratory Results - last 24 hr 09/27/19 09/27/19 09/27/19 14:55 15:10 15:10 WBC 6.26 RBC 3.75 L Hgb 11.1 L Hct 34.8 L MCV 92.8 MCH 29.6 MCHC 31.9 L RDW Std Deviation 17.8 H Plt Count 206 MPV 11.3 H Immature Gran % (Auto) 0.0 Neut % (Auto) 74.7 Lymph % (Auto) 11.0 L Tift % (Auto) 9.3 Eos % (Auto) 4.5 Baso % (Auto) 0.5 Immature Gran # (Auto) 0.00 Neut # (Auto) 4.68 Lymph # (Auto) 0.69 L Tift # (Auto) 0.58 Eos # (Auto) 0.28 Baso # (Auto) 0.03 PT INR PTT (Actin FS) Specimen Type Sample Site pH pCO2 pO2 HCO3 Base Excess Oxyhemoglobin ABG O2 Sat (Calculated) ABG O2 Saturation ABG Carboxyhemoglobin ABG Methemoglobin [place] Test A-a O2 Difference Total Hemoglobin Lactate Liter Flow Blood Gas Modality FiO2 % Sodium 139 Potassium 5.3 H Chloride 104 Carbon Dioxide 23 L Anion Gap 12 BUN 15 Creatinine 1.3 H Estimated GFR/1.73 m2 > 60 BUN/Creatinine Ratio 12 Glucose 91 Calculated Osmolality 278 Calcium 8.5 L Total Bilirubin 0.88 AST 27 ALT 13 Alkaline Phosphatase 102 Creatine Kinase 117 Troponin T High Sens Xof-Y-Gojfbftguzn Pept Total Protein 6.7 Albumin 3.6 Globulin 3.1 Albumin/Globulin Ratio 1.2 Plasma Lactate Urine Source CLEAN CATCH Urine Color YELLOW Urine Turbidity CLEAR Urine pH 6.0 Ur Specific [place] 1.011 Urine Protein TRACE A Ur Glucose (Stick) NEGATIVE Ur Ketones (Stick) NEGATIVE Urine Blood NEGATIVE Urine Nitrite NEGATIVE Urine Bilirubin NEGATIVE Urobilinogen Dipstick NORMAL Urine Leukocytes NEGATIVE Urine WBC (Auto) <10 Urine RBC (Auto) <10 U Epithel Cells (Auto) <10 Urine Bacteria (Auto) NEGATIVE 09/27/19 09/27/19 09/27/19 15:10 15:10 15:10 WBC RBC Hgb Hct MCV MCH MCHC RDW Std Deviation Plt Count MPV Immature Gran % (Auto) Neut % (Auto) Lymph % (Auto) Tift % (Auto) Eos % (Auto) Baso % (Auto) Immature Gran # (Auto) Neut # (Auto) Lymph # (Auto) Tift # (Auto) Eos # (Auto) Baso # (Auto) PT 15.4 INR 1.20 PTT (Actin FS) 36.6 Specimen Type Sample Site pH pCO2 pO2 HCO3 Base Excess Oxyhemoglobin ABG O2 Sat (Calculated) ABG O2 Saturation ABG Carboxyhemoglobin ABG Methemoglobin [place] Test A-a O2 Difference Total Hemoglobin Lactate Liter Flow Blood Gas Modality FiO2 % Sodium Potassium Chloride Carbon Dioxide Anion Gap BUN Creatinine Estimated GFR/1.73 m2 BUN/Creatinine Ratio Glucose Calculated Osmolality Calcium Total Bilirubin AST ALT Alkaline Phosphatase Creatine Kinase Troponin T High Sens 49 H Hyp-M-Urjqgmuyooa Pept 3836 H Total Protein Albumin Globulin Albumin/Globulin Ratio Plasma Lactate Urine Source Urine Color Urine Turbidity Urine pH Ur Specific [place] Urine Protein Ur Glucose (Stick) Ur Ketones (Stick) Urine Blood Urine Nitrite Urine Bilirubin Urobilinogen Dipstick Urine Leukocytes Urine WBC (Auto) Urine RBC (Auto) U Epithel Cells (Auto) Urine Bacteria (Auto) 09/27/19 09/27/19 15:10 15:39 WBC RBC Hgb Hct MCV MCH MCHC RDW Std Deviation Plt Count MPV Immature Gran % (Auto) Neut % (Auto) Lymph % (Auto) Tift % (Auto) Eos % (Auto) Baso % (Auto) Immature Gran # (Auto) Neut # (Auto) Lymph # (Auto) Tift # (Auto) Eos # (Auto) Baso # (Auto) PT INR PTT (Actin FS) Specimen Type ARTERIAL Sample Site R RADIAL pH 7.45 pCO2 36 pO2 181 H HCO3 25.8 Base Excess 1.2 Oxyhemoglobin 96.1 ABG O2 Sat (Calculated) 15.7 ABG O2 Saturation 99.5 ABG Carboxyhemoglobin 2.00 ABG Methemoglobin 1.3 [place] Test YES A-a O2 Difference -26.0 Total Hemoglobin 11.3 L Lactate 0.90 Liter Flow 2.0 Blood Gas Modality CANNULA FiO2 % 28.0 Sodium Potassium Chloride Carbon Dioxide Anion Gap BUN Creatinine Estimated GFR/1.73 m2 BUN/Creatinine Ratio Glucose Calculated Osmolality Calcium Total Bilirubin AST ALT Alkaline Phosphatase Creatine Kinase Troponin T High Sens Yrf-D-Kclaircelmo Pept Total Protein Albumin Globulin Albumin/Globulin Ratio Plasma Lactate 2.2 Urine Source Urine Color Urine Turbidity Urine pH Ur Specific [place] Urine Protein Ur Glucose (Stick) Ur Ketones (Stick) Urine Blood Urine Nitrite Urine Bilirubin Urobilinogen Dipstick Urine Leukocytes Urine WBC (Auto) Urine RBC (Auto) U Epithel Cells (Auto) Urine Bacteria (Auto) Orders Category Date Time Status Cardiac Monitoring DIRECTED Care 09/27/19 14:50 Active IV Insertion ORDERED Care 09/27/19 14:50 Completed Notify MD of + Sepsis Screen NOW Care 09/27/19 14:50 Active Notify Physician As Ordered Care 09/27/19 14:50 Active Nursing- Obtain EKG once Care 09/27/19 15:01 Active Saline Loc NOW Care 09/27/19 14:43 Active Heart Healthy Diet Diet 09/27/19 17:04 Active CHEST-2 VIEWS [RAD] Stat Exams 09/27/19 14:43 Completed ABG [RESP] Routine Lab 09/27/19 15:39 Completed BLOOD CULTURE [BLDCUL] Stat Lab 09/27/19 15:10 Results CBC WITH DIFF [HEME] Stat Lab 09/27/19 15:10 Completed CK PROFILE [SP CHEM] Stat Lab 09/27/19 15:10 Completed COMPREHENSIVE METABOLIC PANEL [CHEM] Stat Lab 09/27/19 15:10 Completed LACTATE, PLASMA [CHEM] Q3H Lab 09/27/19 15:10 Completed LACTATE, PLASMA [CHEM] Q3H Lab 09/27/19 18:00 Uncollected LACTATE, PLASMA [CHEM] Q3H Lab 09/27/19 21:00 Uncollected PRO B-NATRIURETIC PEPTIDE Stat Lab 09/27/19 15:10 Completed PROTIME WITH INR [COAG] Stat Lab 09/27/19 15:10 Completed PTT [COAG] Stat Lab 09/27/19 15:10 Completed TROPONIN T HIGH SENSITIVITY Stat Lab 09/27/19 15:10 Completed URINALYSIS W/POSS RFLX CULT [URINALYSIS] Stat Lab 09/27/19 14:55 Completed 0.9% Sodium Chloride Inj [Ns] 1,000 ml Med 09/27/19 17:45 Active IV 100 mls/hr 0.9% Sodium Chloride Inj [Ns] 1,000 ml Med 09/27/19 14:43 Discontinued IV 999 mls/hr Albuterol 2.5MG/Ipratrop 0.5MG [Duoneb (A & A)] Med 09/27/19 15:18 Discontinued 3 ml INH NOW ONE Apixaban [Eliquis] Med 09/27/19 21:00 Ordered 2.5 mg PO BID Diltiazem C.d. [Cardizem Cd] Med 09/28/19 09:00 Active 180 mg PO DAILY Furosemide [Lasix] Med 09/27/19 16:30 Discontinued 40 mg IV NOW ONE Isosorbide Mononitrate E.r. [Imdur] Med 09/27/19 21:00 Ordered 30 mg PO BID Methylprednisolone Sod Succ [Solu-Medrol] Med 09/27/19 14:43 Discontinued 125 mg IV NOW ONE Metoprolol Succinate E.r. [Toprol Xl] Med 09/28/19 09:00 Ordered 25 mg PO DAILY Pantoprazole [Protonix] Med 09/28/19 09:00 Ordered 40 mg PO DAILY Aerosol Treatments Routine Oth 09/27/19 15:18 Completed Aerosol Treatments Stat Oth 09/27/19 15:18 Completed Oxygen Device Stat Oth 09/27/19 14:50 Completed Pulse Oximetry Stat Oth 09/27/19 14:43 Completed EKG [EKG] Stat Ther 09/27/19 15:01 Draft Pt has mild HF exacerbation, with mild hyperkalemia; spoke with hospitalist who agrees to admit for further management. Result Diagrams: 09/27/19 15:10 09/27/19 15:10 - EKG 1 Time of EKG reading by physician:: 16:30 EKG Read and Signed by:: Wendy Vega EKG Interpretation (*Must complete 3 of following elements*): Abnormal Rate: 68 Rhythm: atrial fibrillation with PVCs [place]: normal ST Wave: non-specific ST changes - XRAY 1 XRAY Study: Chest Impression: See EMR Report (pulm edema) - CONSULTS/PCP/HOSPITALIST Notification #1 *Consult/PCP/Hospitalist*: Veronica Time Discussed: 17:00 Consult Disposition: Admit Departure - Departure Date of Disposition Decision: 09/27/19 Time of Disposition Decision: 17:44 DIAGNOSIS: Acute exacerbation of congestive heart failure Qualifiers: Heart failure type: unspecified Qualified Code(s): I50.9 - Heart failure, unspecified Disposition: ADMITTED INPATIENT 09 Certified Medical Emergency: Emergent Condition: Fair Referrals and Follow-Ups: Frederick Sandra MD [Primary Care Provider] - - Critical Care Note This patient required my direct & personal management of CC.: No Attestation - Physician/ CRISTI Attestation Patient care was provided by Advanced Practice Provider:: No The physician spent face to face time with patient:: Yes Advanced Practice Provider documentation review:: Supervising physician onsite and consulted in the evaluation and care of this patient. The physician did have a face to face encounter with the patient.
[2019-09-27 15:04] LABS: URINE SOURCE CLEAN CATCH
--- NOTE | 2019-09-27 15:08 | Diag Imaging Result Doc PS360 ---
EXAM: CHEST-2 VIEWS HISTORY: cough TECHNIQUE: Two views COMPARISON: 07/16/2019 FINDINGS: Right apical opacity and possible cavity similar to the prior study. The heart is not enlarged. There are infiltrates or atelectasis in the right middle lobe. Small right effusion versus pleural thickening. There is pulmonary edema. IMPRESSION: Pulmonary edema with right apical scarring/pleural thickening and possible right middle lobe pneumonia Electronically signed by Delano Owen 09/27/2019 3:06 PM
[2019-09-27 15:12] LABS: BILIRUBIN URINE NEGATIVE (NEGATIVE); BLOOD URINE NEGATIVE (NEGATIVE); COLOR YELLOW; GLUCOSE URINE NEGATIVE (NEGATIVE); KETONE URINE NEGATIVE (NEGATIVE); LEUKOCYTES URINE NEGATIVE (NEGATIVE); NITRITE URINE NEGATIVE (NEGATIVE); PROTEIN URINE TRACE mg/dL (NEGATIVE); SP GRAVITY URINE 1.011; TURBIDITY URINE CLEAR (CLEAR); UROBILINOGEN URINE NORMAL (NORMAL)
[2019-09-27 15:13] LABS: UR EPITHELIAL CELLS <10 /HPF (<10); URINE BACTERIA NEGATIVE /HPF; URINE RBC <10 /HPF (<10); URINE WBC <10 /HPF (<10)
[2019-09-27] MEDS ORDERED: DUONEB (A & A) INH ONE (15:18)
--- NOTE | 2019-09-27 15:30 | EKG Report ---
Test Performed on : 09/27/2019 2:43:09 PM Test Reason : short of breath Blood Pressure : / mmHG Vent. Rate : 068 BPM Atrial Rate : 079 BPM P-R Int : 000 ms QRS Dur : 078 ms QT Int : 434 ms P-R-T Axes : 000 058 035 degrees QTc Int : 461 ms Atrial fibrillation. with premature ventricular or aberrantly conducted complexes. Nonspecific ST and T wave abnormality Abnormal ECG When compared with ECG of 16-JUL-2019 16:13, ST now depressed in Anterior leads Unconfirmed Result
[2019-09-27 15:31] LABS: BASO# 0.03 X1000 (0.0-0.2); BASO% 0.5 % (0.0-0.8); EOS# 0.28 X1000 (0.0-0.7); EOS% 4.5 % (0.0-10.0); HEMATOCRIT 34.8 % (42.0-52.0); HEMOGLOBIN 11.1 g/dL (14.0-18.0); LYMPH# 0.69 X1000 (1.2-3.4); MCH 29.6 PG (27-31); MCHC 31.9 g/dL (33-37); MCV 92.8 FL (81-99); MONO# 0.58 X1000 (0.11-0.59); MONO% 9.3 % (1.7-9.3); MPV 11.3 FL (7.4-10.4); NEUT# 4.68 X1000 (1.4-6.5); NEUT% 74.7 % (42.2-75.2); PLT 206 X1000 (130-400); RBC 3.75 XMIL (4.7-6.1); RDW 17.8 % (11.5-14.5); WBC 6.26 X1000 (4.8-10.8)
[2019-09-27 15:44] LABS: ALLEN TEST YES; BE 1.2 mmoll (-3.0-3.0); BLOOD TYPE ARTERIAL; HCO3-(ACT) 25.8 mmoll (20.0-26.0); METHB 1.3 % (0.0-1.5); O2(CT) 15.7 mL/dL (15.0-23.0); O2HB 96.1 % (95.0-99.0); PCO2(98.6) 36 mmHg (35-45); PO2(98.6) 181 mmHg (60-100); SAMPLE BLOOD; SAO2 99.5 % (95.0-100.0); THB 11.3 g/dL (11.5-17.4); pH(98.6) 7.45 (7.35-7.45)
[2019-09-27 15:49] LABS: MODALITY CANNULA
[2019-09-27 15:53] LABS: INR 1.2; PROTIME 15.4 Seconds (11.0-16.0); PTT 36.6 Seconds (22.3-41.8)
[2019-09-27 15:55] LABS: AGAP 12; ALB/GLOB RATIO 1.2; ALBUMIN 3.6 g/dL (3.5-5.0); ALKALINE PHOSPHATASE 102 U/L (32-122); BUN 15 mg/dL (8-22); CALCIUM 8.5 mg/dL (8.8-10.2); CHLORIDE 104 mmol/L (98-107); CK PROFILE 117 U/L (24-204); COSMO 278; CREATININE 1.3 mg/dL (0.7-1.2); ESTIMATED GFR > 60; GLUCOSE 91 mg/dL (70-104); GOT 27 U/L (10-34); GPT 13 U/L (10-44); POTASSIUM 5.3 mmol/L (3.5-5.1); SODIUM 139 mmol/L (136-145); TCO2 23 mmol/L (25-35); TOTAL BILIRUBIN 0.88 mg/dL (0.20-1.00); TOTAL PROTEIN 6.7 g/dL (6.3-8.3)
[2019-09-27] MEDS ORDERED: LASIX IV ONE (16:30)
[2019-09-27] MEDS ORDERED: DUONEB (A & A) INH PRN (17:45)
[2019-09-27] MEDS ORDERED: ZOFRAN IV PRN (17:45)
[2019-09-27] MEDS ORDERED: NS 1,000 ML IV SCH ×2 (17:45→18:11)
[2019-09-27] MEDS: ZOSYN 3.375 GM in NS 50 ML IV SCH ×2 (18:57→23:15)
[2019-09-27] MEDS: DUONEB (A & A) INH SCH ×2 (19:50→23:08)
[2019-09-27] MEDS: ZYVOX 600 MG/D5W 600 MG/300 ML IVPB IV SCH (20:02)
--- NOTE | 2019-09-27 20:40 | HISTORY AND PHYSICAL ---
CHIEF COMPLAINT: Shortness of breath. HISTORY OF PRESENT ILLNESS: This is a very pleasant 89-year-old gentleman with a history of bronchioalveolar carcinoma, congestive heart failure, and atrial fibrillation who presents to the emergency room complaining of increasing shortness of breath over the last 24 hours. He reports shortness of breath with activity that does improved somewhat with rest. He is supposed to be on diuretics. The family states that he does often try to skip a dose as it makes him urinate too often, although, in examining the patient, he does have dry, sticky mucous membranes with poor turgor. Chest x-ray revealed right middle lobe pneumonia. Blood cultures were obtained. He is being admitted for further evaluation and treatment. PAST MEDICAL HISTORY: 1. Bronchioalveolar adenocarcinoma. 2. Atrial fibrillation. 3. History of congestive heart failure. 4. Ischemic cardiomyopathy. 5. COPD on continuous O2. 6. Chronic kidney disease. PAST SURGICAL HISTORY: Cardiac stents and foot surgery. SOCIAL HISTORY: He denies alcohol, tobacco, or illicit drug use. He does live with his son. He has children and grandchildren that are very active in his care. ALLERGIES: No known drug allergies. HOME MEDICATIONS: A list will be obtained by the nursing staff. Once verified and reviewed, we will restart as appropriate. REVIEW OF SYSTEMS: Is discussed with patient. Pertinent positives stated in HPI. He denies any syncope or dizziness, any chest pain, palpitation, any productive cough, any fever or chills, any nausea, vomiting, diarrhea, constipation, black or bloody vomitus or stools, any hematuria, dysuria, frequency or urgency. PHYSICAL EXAM: GENERAL: This is an 89-year-old gentleman who was lying on the stretcher in the emergency room in no distress. VITAL SIGNS: Blood pressure is 144/81 with a heart rate of 82, respirations are 20 to 22, temperature is 98.1 degrees, O2 is 100% on 3 L nasal cannula. CARDIOVASCULAR: Irregularly irregular rate and rhythm, S1, S2 appreciated. He has no lower extremity edema. PERIPHERAL PULSES: Are palpable x4 extremities. PULMONARY: Breath sounds with crackles, rhonchi that do not clear to cough and expiratory wheeze is noted throughout. Chest rises and falls symmetric with respiration. GASTROINTESTINAL: Abdomen is soft, nontender, nondistended with bowel sounds in all 4 quadrants. NEUROLOGIC: He is alert orient x3. SKIN: Is warm and dry with poor turgor. LABS: WBC is 6.2 with hemoglobin 11.1, hematocrit 34.8, platelets 206,000. Sodium is 139, potassium 5.3, BUN 15, creatinine 1.3 with a glucose for 91. Troponin was 49. ProBNP is 3836. Urinalysis is essentially negative. Blood cultures are pending. Chest x-ray revealed pulmonary edema with right apical scarring, pleural thickening and possible right middle lobe pneumonia. ASSESSMENT AND PLAN: 1. Right middle lobe pneumonia. Blood cultures have been obtained. We will give 1 g of vancomycin, antibiotics of Zosyn and Zyvox and further antibiotics will be culture driven. Give supplemental oxygen, DuoNeb q.4 hours and q.2 hours p.r.n. with steroids to taper. 2. Chronic kidney disease. We will renal dose medications as appropriate and follow daily labs. 3. Hypertension. We will identify his home med and continue as appropriate. 4. Atrial fibrillation. Rate is controlled right how. We will identify his medications. Continue as appropriate. We will place him on telemetry. We will continue is Eliquis. 5. History of bronchioalveolar lung cancer. The patient is followed by Dr. Galaviz. We will consult him at the patient's request. 6. Ischemic cardiomyopathy. We will continue his medications. The patient was evaluated and plan was discussed with Dr. Salazar. Further treatment pending hospital course. Dictated by ZOYA Mcdowell for Zahra Salazar MD cc: ZOYA Mcdowell MD I performed a face to face encounter on the patient. I reviewed all labs and imaging on the patient. I agree with the H&P as dictated. [facility]
[2019-09-27] MEDS: ELIQUIS PO SCH (22:58)
[2019-09-27] MEDS: AMBIEN PO SCH (22:58)
[2019-09-27] MEDS: IMDUR PO SCH (22:58)
[2019-09-27] MEDS ORDERED: SOLU-MEDROL IV SCH (23:30)
[2019-09-28] MEDS: DUONEB (A & A) INH SCH ×6 (03:32→23:42)
[2019-09-28] MEDS: ZOSYN 3.375 GM in NS 50 ML IV SCH ×4 (05:23→23:13)
[2019-09-28 06:23] LABS: HEMATOCRIT 30.1 % (42.0-52.0); HEMOGLOBIN 9.8 g/dL (14.0-18.0); LYMPH# 0.16 X1000 (1.2-3.4); LYMPH% 4.5 % (20.5-51.1); MCH 29.7 PG (27-31); MCHC 32.6 g/dL (33-37); MCV 91.2 FL (81-99); MONO# 0.04 X1000 (0.11-0.59); MONO% 1.1 % (1.7-9.3); MPV 11.5 FL (7.4-10.4); NEUT# 3.38 X1000 (1.4-6.5); NEUT% 94.4 % (42.2-75.2); PLT 185 X1000 (130-400); RDW 17.3 % (11.5-14.5); WBC 3.58 X1000 (4.8-10.8)
[2019-09-28] MEDS: PROTONIX PO SCH (06:30)
[2019-09-28] MEDS: ZYVOX 600 MG/D5W 600 MG/300 ML IVPB IV SCH ×2 (06:30→17:16)
[2019-09-28 06:40] LABS: AGAP 12; BUN 16 mg/dL (8-22); CALCIUM 8.6 mg/dL (8.8-10.2); CHLORIDE 104 mmol/L (98-107); COSMO 282; CREATININE 1.3 mg/dL (0.7-1.2); ESTIMATED GFR > 60; GLUCOSE 182 mg/dL (70-104); POTASSIUM 3.3 mmol/L (3.5-5.1); SODIUM 138 mmol/L (136-145); TCO2 22 mmol/L (25-35)
[2019-09-28] MEDS ORDERED: KLOR-CON PO ONE (07:00)
[2019-09-28 07:44] LABS: LARGE PLATELETS OCCASIONAL; LYMPHS 7 % (21-51); SEGS 93 % (42-75)
[2019-09-28] MEDS: TOPROL XL PO SCH (09:04)
[2019-09-28] MEDS: IMDUR PO SCH ×2 (09:04→20:52)
[2019-09-28] MEDS: MIRALAX PO SCH (09:04)
[2019-09-28] MEDS: CARDIZEM CD PO SCH (09:05)
[2019-09-28] MEDS: ELIQUIS PO SCH ×2 (09:05→20:53)
--- NOTE | 2019-09-28 09:31 | Diag Imaging Result Doc PS360 ---
EXAM: CT THORAX/ABDOMEN W/WO CON 09/28/2019 HISTORY: cancer re-staging RM218 TECHNIQUE: This exam was performed using automated exposure control, adjustment of mA or kV according to patient size, and/or use of iterative reconstruction technique. COMMENT: The current examination is compared with the previous examinations of 06/03/2019. Thorax: There is a fairly large pleural fluid collection on the right some of which may be loculated. There is a small amount of pleural fluid on the left. The volume of pleural fluid on the right is definitely larger than on the previous study. There is cardiomegaly. There is extensive coronary calcification. The ascending aorta is slightly distended at 4.2 cm. There are no filling defects in the pulmonary arteries. There is no evidence of significant adenopathy. There are pleural calcifications on the right. The regional skeleton is stable in appearance. There is apparent complete atelectasis of the right upper lobe and some compressive atelectasis of the right lower lobe is present. The pleural-based lesion which was demonstrated previously in the right lower lobe is somewhat less prominent and only appears to be less than 12 mm in thickness compared to over 15 mm at the time the previous study. There is a pleural-based opacity in the left lower lobe posteriorly which measures almost 16 x 29 mm in axial dimension compared to 17 x 26 mm previously. ABDOMEN: There is no evidence of nephrolithiasis. There is no apparent cholelithiasis. There is considerable motion artifact. There are multiple renal cysts. There are atherosclerotic calcifications in the aorta and iliac arteries. There is a fair amount of stool throughout the colon. There is a cystic-appearing lucency in the dome of the liver which has not changed appreciably since the previous study. Multiple smaller lucent lesions are present in the right and left lobe which have not changed significantly and are also likely cysts. The adrenal glands spleen and pancreas are stable in appearance. There is no evidence of bowel obstruction. There are spondylotic changes in the lumbar spine. No acute bony abnormalities are present. IMPRESSION: 1. Worsened pleural effusions. Stable or slightly diminished pleural-based opacities bilaterally as described above. Complete atelectasis of the right upper lobe. 2. Renal and hepatic cysts. Constipation. Atherosclerosis. Essentially stable abdomen. Electronically signed by Elmer Tamez 09/28/2019 9:29 AM
[2019-09-28] MEDS ORDERED: ROBITUSSIN-DM PO PRN (10:04)
[2019-09-28] MEDS: COLACE PO SCH ×2 (10:41→20:53)
[2019-09-28] MEDS: TESSALON PO SCH ×3 (10:41→17:17)
[2019-09-28] MEDS ORDERED: MAGNESIUM SULFATE 2 GM/S.W.I. 2 GM/50 ML IVPB IV ONE (12:35)
--- NOTE | 2019-09-28 14:47 | HEMO/ONC CONSULTATION ---
DATE: 09/28/2019 REASON FOR CONSULTATION: This is a known patient of ours for observation of bronchioalveolar carcinoma. HISTORY OF PRESENT ILLNESS: This is an 89-year-old gentleman with a history of bronchioloalveolar carcinoma who we follow on observation in the clinic. The patient has chosen a wait and watch approach, and is not on any current therapy. The patient reports to the ER with complaint of shortness of breath over the last 2 days. He explains that he has shortness of breath with any activity and that it does improve a little with rest. The patient is noncompliant on diuretics as he does not like to have to use the bathroom that much. His chest x-ray done in the ER revealed right middle lobe pneumonia. He was admitted for further treatment and evaluation. PAST MEDICAL HISTORY: 1. Bronchioalveolar carcinoma. 2. Atrial fibrillation. 3. History of congestive heart failure. 4. Ischemic cardiomyopathy. 5. COPD, on continuous O2. 6. Chronic kidney disease. PAST SURGICAL HISTORY: Cardiac stents and foot surgery. SOCIAL HISTORY: He denies alcohol, tobacco, or illicit drug use. ALLERGIES: No known drug allergies. HOME MEDICATIONS: Eliquis, Cardizem CD, Lasix, isosorbide mononitrate, Cozaar, Lopressor, Protonix, simvastatin, zinc, and Ambien. REVIEW OF SYSTEMS: Includes shortness of breath and productive cough. The patient denies dizziness, chest pain, fevers, chills, recurrent infections, nausea, vomiting, or diarrhea. PHYSICAL EXAMINATION: Vital Signs: Temperature 97.7 degrees, pulse rate 68, respiratory rate 23, blood pressure 127/68, O2 saturation 98% on 2 L via nasal cannula. The patient is in 0/10 pain. LABORATORY: WBCs 3.58, hemoglobin 9.8, hematocrit 30.1, platelet 185, ANC 3.38. Potassium 3.3, creatinine 1.3. Plasma lactate 2.7, CEA 4.3. ProBNP 3836. RADIOLOGY: Chest x-ray shows pulmonary edema with right apical scarring/pleural thickening and possible right middle lobe pneumonia. Chest and abdomen restaging CT shows worsened pleural effusions, stable or slightly diminished pleural-based opacities bilaterally, complete atelectasis of the right upper lobe. Renal and hepatic cysts, constipation, atherosclerosis. ASSESSMENT/PLAN: 1. Bronchioloalveolar carcinoma. The patient has chosen the wait and watch approach. However, he did not make his last appointment. We have not seen him since May of last year. His CEA is 4.3. 2. Right middle lobe pneumonia. Continue management per medical management. 3. Chronic kidney disease. It is noted he has an elevation in creatinine. Continue monitoring daily labs. Provide intravenous fluids and oral fluids as necessary. 4. Deep venous thrombosis prophylaxis. If the patient is able, get him out of the bed 3 times a day. Continue him on maintenance dose of Eliquis. 5. Nutrition and deconditioning. Please provide the patient with protein shakes with each meal. Please consult physical therapy to help get the patient up and out of the bed to do exercises while in the hospital. Dictated by ZOYA Ness for Semaj Galaviz MD Patient seen and examined. As above CT reviewed. Small pleural effusions. RUL atelectasis likely from cancer. Dr Ramos consulted for opinion. His disease has very slowly progressed over the last year or so. He has not received any therapy due to his frailty. . He is not a candidate for chemotherapy and family has taken care of him and during his last admission declined hospice. He is treated with antibiotics for possible pneumonia. Continue current management. Will follow with you. Thank you. Semaj Galaviz MD cc: Semaj Galaviz MD [facility]
[2019-09-28] MEDS ORDERED: PERCOCET-5 PO PRN (18:38)
[2019-09-28] MEDS: AMBIEN PO SCH (20:52)
--- NOTE | 2019-09-28 21:10 | PROGRESS NOTE ---
DATE: 09/28/2019 SUBJECTIVE: The patient states that he feels short of breath with minimal exertion. He states that he is hungry. OBJECTIVE: Vital Signs: Temperature 97 degrees, blood pressure 148/73, heart rate 62, respirations 17, O2 saturation is 100% on 2 L nasal cannula. General: Chronically ill-appearing, elderly male, lying comfortably in bed. Heart: S1, S2 normal. Regular rate and rhythm. Lungs: Coarse breath sounds bilaterally. Abdomen: Positive bowel sounds. Soft, nontender, nondistended. Extremities: No edema. No cyanosis. Neurologic: Alert and oriented x4. LABORATORY DATA: White blood cell count 3.5, hemoglobin 9.8, hematocrit 30, platelets 185,000. Sodium 138, potassium 3.3, chloride 104, CO2 of 22, BUN 16, creatinine 1.3, glucose 182, magnesium 1.5. ASSESSMENT AND PLAN: 1. Acute on chronic hypoxemic respiratory failure. The patient has lung cancer, as well as bilateral pleural effusions, as well as a possible postobstructive pneumonia. 2. Suspected postobstructive pneumonia. We will continue with broad-spectrum antibiotics, bronchodilator therapy, and supplemental oxygen. We will consult with the last dipper. 3. Bilateral pleural effusions. Continue to monitor closely. These are likely malignant. 4. Bronchioloalveolar carcinoma. Management as per Dr. Galaviz. 5. Ischemic cardiomyopathy. Stable. 6. Constipation. Continue with scheduled laxative therapy. 7. Gastroesophageal reflux disease. Continue on Protonix. 8. Hypertension. Controlled. Continue on the current antihypertensive regimen. 9. Atrial fibrillation. The patient is rate controlled. Continue on Eliquis and Toprol-XL, as well as Cardizem. 10. We will consult Physical Therapy. cc: MD MAR Ramírez
[2019-09-28] MEDS ORDERED: TYLENOL PO PRN (21:24)
[2019-09-28] MEDS ORDERED: ULTRAM PO PRN (21:24)
[2019-09-29] MEDS: DUONEB (A & A) INH SCH ×5 (03:39→23:50)
[2019-09-29] MEDS: PROTONIX PO SCH ×2 (04:52→06:32)
[2019-09-29] MEDS: ZOSYN 3.375 GM in NS 50 ML IV SCH ×4 (04:55→17:41)
[2019-09-29] MEDS: ZYVOX 600 MG/D5W 600 MG/300 ML IVPB IV SCH ×2 (05:35→18:15)
[2019-09-29] MEDS ORDERED: LASIX IV ONE ×2 (06:00→15:00)
--- NOTE | 2019-09-29 06:26 | PULMONOLOGY CONSULTATION ---
DATE: 09/28/2019 REQUESTING CLINICIAN: Dr. Salazar. REASON FOR CONSULTATION: Pleural effusions, lung cancer, respiratory failure. HISTORY OF PRESENT ILLNESS: Mr. 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 Due to his multiple comorbidities outlined below, he was not a candidate for aggressive treatment and has been followed expectantly. The patient has an ischemic cardiomyopathy with an ejection fraction of 25 to 30 percent. He periodically will be noncompliant with his Lasix because it causes increased urination. He presented to the emergency room 09/27/2019 with increasing shortness of breath over the previous 24 hours. The patient denies cough, he denies sputum production, he denies fevers or chills. He did improve with diuretics, although he did not appear to have significant diuresis. Currently, he is without shortness of breath. PAST MEDICAL HISTORY/PROBLEM LIST: 1. 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 2. Severe pulmonary hypertension with a PA systolic pressure approaching 80. 3. Ischemic cardiomyopathy with an ejection fraction of 20 to 25 percent. 4. Atrial fibrillation. 5. Chronic kidney disease. 6. Hypertension. 7. Poor performance status. 8. Peripheral vascular disease with prior right carotid endarterectomy. SOCIAL HISTORY: The patient has a 37 pack year history for tobacco. He has a very attentive family. He is a . FAMILY HISTORY: Noncontributory to current presentation. REVIEW OF SYSTEMS: Notable for generalized weakness, pain for which he typically takes tramadol or Tylenol, and a dry cough. PHYSICAL EXAMINATION: General: Reveals a chronically ill-appearing male, resting comfortably and in no distress. Vital signs: Blood pressure 137/70, heart rate 85, respiratory rate 21, oxygen saturation 100% on 2 L. HEENT: Pupils are equal and reactive. Oropharynx appears clear. Neck: Supple. Chest: Reveals diminished breath sounds right apex with wheezing present. Cardiac: S1, S2 with a regular rhythm. Abdomen: Soft. Extremities: Reveal 1+ peripheral edema. IMAGING: CT scan of the thorax is reviewed and reveals increased pleural effusions with stable atelectasis, right upper lobe. LABORATORY DATA: White blood count 3.58, hemoglobin 9.8, platelet count 185,000. Sodium 138, potassium 3.3, chloride 22, BUN 16, creatinine 1.3. IMPRESSION: An 89-year-old with: 1. Systolic heart failure. 2. Dyspnea on exertion. 3. Increased pleural effusions, possibly related to noncompliance to diuretics. 4. Untreated lung cancer as per history of present illness. 5. Chronic renal insufficiency. RECOMMENDATION: 1. Two doses of diuretics. 2. Continue oxygen for hypoxemic respiratory failure. 3. Initiate Tylenol and tramadol as per patient's routine medicines for pain. 4. Prognosis remains poor. End of life discussions with code status per the Hospitalist service. cc: Guilherme Ramos MD
[2019-09-29 06:35] LABS: HEMATOCRIT 28.5 % (42.0-52.0); HEMOGLOBIN 9.3 g/dL (14.0-18.0); LYMPH# 0.22 X1000 (1.2-3.4); LYMPH% 3.4 % (20.5-51.1); MCH 30.1 PG (27-31); MCHC 32.6 g/dL (33-37); MCV 92.2 FL (81-99); MONO# 0.51 X1000 (0.11-0.59); MONO% 7.8 % (1.7-9.3); MPV 11.3 FL (7.4-10.4); NEUT% 88.8 % (42.2-75.2); PLT 182 X1000 (130-400); RBC 3.09 XMIL (4.7-6.1); RDW 17.5 % (11.5-14.5); WBC 6.53 X1000 (4.8-10.8)
[2019-09-29 07:12] LABS: CALCIUM 8.6 mg/dL (8.8-10.2); CREATININE 1.5 mg/dL (0.7-1.2); POTASSIUM 3.8 mmol/L (3.5-5.1)
[2019-09-29] MEDS: MIRALAX PO SCH (08:54)
[2019-09-29] MEDS: IMDUR PO SCH ×2 (08:54→21:02)
[2019-09-29] MEDS: ELIQUIS PO SCH ×2 (08:55→21:02)
[2019-09-29] MEDS: TESSALON PO SCH ×3 (08:55→21:02)
[2019-09-29] MEDS: TOPROL XL PO SCH (08:55)
[2019-09-29] MEDS: COLACE PO SCH ×2 (08:55→21:02)
[2019-09-29] MEDS: CARDIZEM CD PO SCH (08:55)
--- NOTE | 2019-09-29 15:22 | PROGRESS NOTE ---
DATE: 09/29/2019 SUBJECTIVE: The patient is resting comfortably in bed. He complains of shortness of breath whenever he tries to get up. OBJECTIVE: Vital Signs: Temperature 97.8 degrees, blood pressure 130/82, heart rate 58, respirations 17, O2 saturations 100% on 3 L nasal cannula. Intake 1.2 L, output 550. General: This is a chronically ill-appearing elderly male lying in bed in no acute distress. Heart: S1, S2. Normal. Lungs: Equal air entry bilaterally. No wheezing. No rales. Abdomen: Positive bowel sounds. Soft, nontender, nondistended. Extremities: Trace pedal edema. Neurologic: The patient is alert and oriented x3. He is hard of hearing. LABORATORY DATA: White blood cell count 6.5, hemoglobin 9.3, hematocrit 28, platelets 182,000. Sodium 137, potassium 3.8, chloride 104, CO2 22, BUN 18, creatinine 0.5, glucose 144, calcium 8.6. ASSESSMENT AND PLAN: 1. Acute hypoxemic respiratory failure. Multifactorial. The patient has pleural effusions and lung cancer. 2. Bilateral pleural effusions. The patient has received diuretic therapy. We will monitor his response closely. Continue with supplemental oxygen. 3. Untreated bronchioalveolar carcinoma. Aware. Dr. Galaviz is following. 4. Ischemic cardiomyopathy. Aware. 5. Acute on chronic systolic congestive heart failure exacerbation. The patient is scheduled to receive diuretic therapy today. We will monitor the patient's response closely. 6. Chronic obstructive pulmonary disease. Aware. 7. Chronic kidney disease. Stable. 8. Constipation. Continue with scheduled laxative therapy. 9. Atrial fibrillation. The patient is rate controlled. Continue on Cardizem, Toprol-XL and Eliquis. 10. Physical therapy has been consulted. cc: Zahra Salazar MD [facility]
--- NOTE | 2019-09-29 16:52 | HEMO/ONC PROGRESS NOTE ---
DATE: 09/29/2019 SUBJECTIVE: Mr. Leong is sitting up in bed eating his breakfast. He states his appetite is good. He has no complaints today. He states his shortness of breath is currently resolved. He denies any pain. He had a good night's sleep with no acute events overnight. OBJECTIVE: Vital signs: Temperature 97.8 degrees, pulse rate 58, respiratory rate 17, blood pressure 130/82, O2 saturation 100% on nasal cannula at 3 L. He is in 0/10 pain. PHYSICAL EXAMINATION: General: Chronically ill-appearing gentleman in no acute distress. Cardiovascular: Normal S1, S2. Heart rate and rhythm regular. Respiratory: Diminished breath sounds, otherwise clear. Gastrointestinal: Positive bowel sounds. Abdomen: Soft, nontender, nondistended. Extremities: No lower extremity edema noted. Neurological: Alert and oriented x3. The patient is very hard of hearing. LABORATORY: WBCs 6.53, hemoglobin 9.3, hematocrit 28.5, platelet count 182,000, creatinine 1.5, calcium 8.6. ASSESSMENT AND PLAN: 1. Bronchioloalveolar carcinoma. The patient's prognosis remains poor. The patient has not had any treatment and the family chooses not to proceed. He is not a candidate for chemotherapy. 2. Bilateral pleural effusions, possibly related to noncompliance with diuretics. 3. Chronic kidney disease, stable. 4. Deep venous thrombosis prophylaxis. Get the patient out of bed. Continue him on maintenance dose of Eliquis. Provide him in sequential compression devices and pneumatic devices. 4. Nutrition and deconditioning. Continue to provide the patient with protein shakes with each meal. Consult physical therapy to get the patient up and to do exercises. 5. Disposition: Continue current management. We will continue to follow along with you. We will follow up with the patient outpatient after discharge. Dictated by ZOYA Ness for Semaj Galaviz MD As above. Continue diuretics and pulmonary management per Dr. Ramos. From Cancer standpoint, disease has been slowly progressive. We do not plan to treat him. Comfort measures, when he declines from cancer standpoint. Semaj Galaviz MD cc: Semaj Galaviz MD [facility]
[2019-09-29] MEDS: AMBIEN PO SCH (21:02)
[2019-09-30] MEDS: ZOSYN 3.375 GM in NS 50 ML IV SCH ×4 (00:54→17:13)
--- NOTE | 2019-09-30 01:40 | PULMONOLOGY PROGRESS NOTE ---
DATE: 09/29/2019 SUBJECTIVE: The patient is awake and alert. He reports his breathing is doing pretty well. He reports some epigastric tenderness. OBJECTIVE: Vital Signs: The patient has been afebrile for the last 24 hours. Blood pressure 121/61, heart rate 64, respiratory rate 22, oxygen saturation 100% on nasal cannula. HEENT: Pupils are equal and reactive. Oropharynx appears clear. Neck: Supple. Chest: Reveals wheezing right greater than left upper lung jacobs. Cardiac: S1-S2. Abdomen: Soft with positive bowel sounds. Extremities: Without edema. LABORATORIES: Sodium 137, potassium 3.8, chloride 104, bicarbonate 22, BUN 18, creatinine 1.5. IMPRESSION: An 89-year-old with: 1. Systolic heart failure. 2. Bilateral effusions. 3. Dyspnea with improvement after diuresis. 4. Untreated lung cancer. 5. Chronic renal insufficiency. PLAN: 1. Continue oxygen for respiratory failure. 2. Continue palliative measures. 3. Consider steroids if wheezing increases. 4. Continue current antibiotic regimen. 5. Prognosis is poor. cc: Guilherme Ramos MD
[2019-09-30] MEDS: DUONEB (A & A) INH SCH ×6 (03:40→23:30)
[2019-09-30] MEDS: ZYVOX 600 MG/D5W 600 MG/300 ML IVPB IV SCH ×2 (05:11→17:13)
[2019-09-30] MEDS: PROTONIX PO SCH (06:17)
[2019-09-30 06:25] LABS: HEMATOCRIT 30.8 % (42.0-52.0); MCH 29.7 PG (27-31); MCHC 32.5 g/dL (33-37); MCV 91.4 FL (81-99); MPV 10.9 FL (7.4-10.4); RBC 3.37 XMIL (4.7-6.1); RDW 17.4 % (11.5-14.5); WBC 5.97 X1000 (4.8-10.8)
--- NOTE | 2019-09-30 06:33 | Diag Imaging Result Doc PS360 ---
EXAM: CHEST-PORTABLE HISTORY: abnormal exam TECHNIQUE: Single view COMPARISON: 09/27/2019 FINDINGS: Poor inspiratory effort. There is volume loss to the right lung with apical pleural thickening and possibly and underlying cavity. Left lung is clear. The heart is enlarged and there is mild pulmonary edema. IMPRESSION: No interval improvement. Electronically signed by Delano Owen 09/30/2019 6:30 AM
[2019-09-30 06:46] LABS: CALCIUM 8.3 mg/dL (8.8-10.2); CREATININE 1.5 mg/dL (0.7-1.2); POTASSIUM 3.3 mmol/L (3.5-5.1)
[2019-09-30] MEDS: TESSALON PO SCH ×3 (08:17→20:22)
[2019-09-30] MEDS: TOPROL XL PO SCH (08:17)
[2019-09-30] MEDS: CARDIZEM CD PO SCH (08:17)
[2019-09-30] MEDS: ELIQUIS PO SCH ×2 (08:17→20:22)
[2019-09-30] MEDS: COLACE PO SCH (08:17)
[2019-09-30] MEDS: IMDUR PO SCH ×2 (08:17→20:22)
[2019-09-30] MEDS: MIRALAX PO SCH (08:17)
[2019-09-30] MEDS ORDERED: KLOR-CON PO ONE (09:02)
--- NOTE | 2019-09-30 09:59 | PROVIDER PROGRESS NOTE ---
Progress Note Pulmonary additional note: I have seen and examined the case, reviewed the EMR, labs, latest images and other medical teams notes. Also reviewed the [employer] notes and signed necessary form(s). I have noted changes in condition from yesterday. Please see also signed progress sheet. I reviewed the medications in summary list. I reviewed the orders of the patient. 89-year-old with acute respiratory failure that is compensated and untreated bronchoalveolar cell carcinoma, ischemic cardiomyopathy, pleural effusions, pneumonia versus bronchitis I checked Oxygen settings and titrated to patient needs per clinical protocols and watched the patient responses. Since yesterday, He is tolerating oxygen supplement. Prognosis: Is poor for untreated cancer. I reviewed latest notes from Richard Navarro and Hematology. I did the evaluation exam and management on the other sheet and the X RAY TECHNOLOGIST did the scribing only. I spent 34 minutes in this process
--- NOTE | 2019-09-30 14:21 | HEMO/ONC PROGRESS NOTE ---
DATE: 09/30/2019 SUBJECTIVE: Mr. Leong is sitting up and doing very well today. He has no new complaints. He is continuing to feel better. He had a good night's sleep. No significant events overnight. OBJECTIVE: Temperature 97.6 degrees, pulse rate 86, respiratory rate 16, blood pressure 125/64, O2 saturation 100% on nasal cannula at 2 L. He is in 0/10 pain. PHYSICAL EXAMINATION: General: Chronically ill-appearing male in no acute distress. Cardiovascular: Normal S1, S2. Heart rate and rhythm regular. Respiratory: Some wheezes noted. Diminished breath sounds throughout. Gastrointestinal: Abdomen soft, nontender. Positive bowel sounds. Extremities: No lower extremity edema noted. Neurological: Alert and oriented x3. LABORATORY: WBCs 5.97, hemoglobin 10.0, hematocrit 30.8, platelet count 197,000. Creatinine 1.5. RADIOLOGY: Chest x-ray shows volume loss to the right lung with apical pleural thickening and possibly underlying cavity. Left lung is clear. No interval improvement. ASSESSMENT AND PLAN: 1. Bronchioalveolar carcinoma. The patient's prognosis remains poor. We do not plan to treat him and if he declines from a cancer standpoint, he will need comfort measures. 2. Bilateral pleural effusion. Continue the patient on diuretics. Appreciate Dr. Ramos's assessment. Continue oxygen, chronic kidney disease, aware. 3. Deep venous thrombosis prophylaxis. Get the patient out of bed. Continue Eliquis. 4. Nutrition and deconditioning. Continue to provide the patient with protein shakes and exercises with physical therapy. 5. Disposition. We will continue to peripherally monitor the patient. Please call us as needed over the weekend. Dictated by ZOYA Ness for Semaj Galaviz MD cc: Semaj Galaviz MD [facility]
[2019-09-30] MEDS ORDERED: LASIX IV ONE (17:34)
[2019-09-30] MEDS: AMBIEN PO SCH (20:22)
--- NOTE | 2019-09-30 20:43 | PROGRESS NOTE ---
DATE: 09/30/2019 SUBJECTIVE: The patient is resting comfortably in bed. He states that he still feels short of breath when trying to get up and move around. OBJECTIVE: Vital Signs: Temperature 97.8 degrees, blood pressure 112/55, heart rate 90, respirations 12, O2 saturations 98% on 2 L nasal cannula. General: This is a chronically ill- appearing elderly male sitting up in bed in no acute distress. Heart: S1, S2 normal. Regular rate and rhythm. Lungs: Equal air entry bilaterally. No wheezing. No rales. Abdomen: Positive bowel sounds. Soft, nontender, nondistended. Extremities: No edema. No cyanosis. Neurologic: The patient is alert and oriented x4. LABORATORIES: White blood cell count 5.9, hemoglobin 10, hematocrit 30, platelets 197,000, sodium 141, potassium 3.3, chloride 104, CO2 26, BUN 19, creatinine 1.5, glucose 114. IMAGING: Chest x-ray shows apical pleural thickening and a possible underlying cavity. Mild pulmonary edema. ASSESSMENT AND PLAN: 1. Acute hypoxemic respiratory failure. Continue on the current treatment regimen. 2. Bilateral pleural effusions. Unchanged. Continue to monitor closely. 3. Acute on chronic systolic congestive heart failure exacerbation. The patient received diuretic therapy yesterday. We will monitor closely. 4. Ischemic cardiomyopathy. Aware. 5. Untreated bronchioloalveolar carcinoma. Aware. 6. Chronic obstructive pulmonary disease. Aware. 7. Chronic kidney disease. Stable. 8. Constipation. Resolved. We will hold the laxative therapy since the patient is now having liquid stools. 9. Atrial fibrillation. The patient is rate controlled. Continue on Cardizem, Toprol-XL and Eliquis. 10. The patient has been working with physical therapy. The patient has been advised to try and sit in the chair as much as possible instead of lying in bed. cc: Zahra Salazar MD
[2019-10-01] MEDS: ZOSYN 3.375 GM in NS 50 ML IV SCH ×4 (00:13→17:58)
[2019-10-01] MEDS: DUONEB (A & A) INH SCH ×6 (03:40→23:40)
[2019-10-01] MEDS: ZYVOX 600 MG/D5W 600 MG/300 ML IVPB IV SCH ×2 (06:03→17:58)
[2019-10-01] MEDS: PROTONIX PO SCH (06:03)
[2019-10-01 06:59] LABS: BASO# 0.01 X1000 (0.0-0.2); BASO% 0.2 % (0.0-0.8); EOS# 0.29 X1000 (0.0-0.7); EOS% 5.7 % (0.0-10.0); HEMATOCRIT 32.3 % (42.0-52.0); HEMOGLOBIN 10.4 g/dL (14.0-18.0); LYMPH# 0.46 X1000 (1.2-3.4); MCH 29.6 PG (27-31); MCHC 32.2 g/dL (33-37); MONO# 0.64 X1000 (0.11-0.59); MONO% 12.5 % (1.7-9.3); MPV 11.1 FL (7.4-10.4); NEUT# 3.72 X1000 (1.4-6.5); NEUT% 72.6 % (42.2-75.2); PLT 224 X1000 (130-400); RBC 3.51 XMIL (4.7-6.1); RDW 17.6 % (11.5-14.5); WBC 5.12 X1000 (4.8-10.8)
[2019-10-01 07:55] LABS: CALCIUM 8.8 mg/dL (8.8-10.2); CREATININE 1.6 mg/dL (0.7-1.2); POTASSIUM 3.7 mmol/L (3.5-5.1)
[2019-10-01 08:46] LABS: MAGNESIUM 1.7 mg/dL (1.5-2.7); PHOSPHORUS 3.5 mg/dL (2.7-4.5)
[2019-10-01] MEDS: TESSALON PO SCH ×3 (08:47→21:51)
[2019-10-01] MEDS: TOPROL XL PO SCH (08:47)
[2019-10-01] MEDS: IMDUR PO SCH ×2 (08:47→21:51)
[2019-10-01] MEDS: CARDIZEM CD PO SCH (08:47)
[2019-10-01] MEDS: ELIQUIS PO SCH ×2 (08:47→21:51)
--- NOTE | 2019-10-01 12:25 | PROVIDER PROGRESS NOTE ---
Progress Note Pulmonary additional note: I have seen and examined the case, reviewed the EMR, labs, latest images and other medical teams notes. Also reviewed the WEDDING DAY COORDINATOR notes and signed necessary form(s). I have noted changes in condition from yesterday. Please see also signed progress sheet. I reviewed the medications in summary list. I reviewed the orders of the patient. 89-year-old with acute respiratory failure that is compensated and untreated bronchoalveolar cell carcinoma, ischemic cardiomyopathy, pleural effusions, pneumonia versus bronchitis I checked Oxygen settings and titrated to patient needs per clinical protocols and watched the patient responses. Since yesterday, I had a discussion with patient son about condition and his qu estions were answered. Prognosis: Is poor for untreated cancer. I reviewed latest notes from Dr. Salazar, and Oncology. I discussed case with patient and his son at bedside. Son asked for CT report a ns was provided. I did the evaluation exam and management on the other sheet and the ASSOCIATION EXECUTIVE did the scribing only. I spent 35 minutes in this process
--- NOTE | 2019-10-01 18:33 | PROGRESS NOTE ---
DATE: 10/01/2019 SUBJECTIVE: The patient is sitting up in bed resting comfortably. He states that he feels okay today. He ate all of his breakfast, and he is having bowel movements. OBJECTIVE: Vital Signs: Temperature 98, blood pressure 115/70, heart rate 72, respirations 17, O2 saturation 100% on 3 L nasal cannula. General: This is a chronically ill- appearing elderly male lying in bed in no acute distress. Heart: S1, S2 normal. Regular rate and rhythm. Lungs: Diminished breath sounds in the right lung field. No wheezing. No rales. Abdomen: Positive bowel sounds. Soft, nontender, nondistended. Extremities: No edema, no cyanosis. No calf tenderness. Neurologic: The patient is alert and oriented x3. LABS: White blood cell count 5, hemoglobin 10, hematocrit 32, platelets 224. Sodium 142, potassium 3.7, chloride 101. CO2 is 27, BUN 18, creatinine 1.6, glucose 98. ProBNP 2236. ASSESSMENT AND PLAN: 1. Chronic hypoxemic respiratory failure. Multifactorial. The patient has untreated lung cancer as well as bilateral pleural effusions. 2. Bilateral pleural effusions. We will repeat a chest x-ray tomorrow. Continue to monitor closely. 3. Acute on chronic systolic congestive heart failure exacerbation. We will hold diuretic therapy today. 4. Ischemic cardiomyopathy. Aware. 5. Untreated bronchoalveolar carcinoma. Aware. 6. Chronic obstructive pulmonary disease. Stable. 7. Chronic kidney disease stage 3. Continue to monitor closely. 8. Atrial fibrillation. The patient is rate controlled. Continue on Cardizem, Toprol, and Eliquis. 9. Disposition. Continue with physical therapy. cc: Zahra Salazar MD [facility]
[2019-10-01] MEDS: AMBIEN PO SCH (21:51)
[2019-10-02] MEDS: ZOSYN 3.375 GM in NS 50 ML IV SCH ×4 (01:01→17:32)
[2019-10-02] MEDS: DUONEB (A & A) INH SCH ×6 (03:45→23:35)
[2019-10-02] MEDS: ZYVOX 600 MG/D5W 600 MG/300 ML IVPB IV SCH ×2 (06:07→17:31)
[2019-10-02] MEDS: PROTONIX PO SCH (06:08)
[2019-10-02 06:15] LABS: HEMATOCRIT 30.1 % (42.0-52.0); HEMOGLOBIN 9.7 g/dL (14.0-18.0); MCHC 32.2 g/dL (33-37); MCV 93.2 FL (81-99); MPV 10.9 FL (7.4-10.4); RBC 3.23 XMIL (4.7-6.1); RDW 17.3 % (11.5-14.5); WBC 5.15 X1000 (4.8-10.8)
[2019-10-02 06:50] LABS: CALCIUM 8.3 mg/dL (8.8-10.2); CREATININE 1.4 mg/dL (0.7-1.2); POTASSIUM 3.8 mmol/L (3.5-5.1)
--- NOTE | 2019-10-02 07:38 | Diag Imaging Result Doc PS360 ---
CHEST-1 VIEW - 10/02/2019 INDICATION: pulmonary edema/lung cancer COMPARISON: 09/30/2019 FINDINGS: Stable dense opacification of the right upper lobe. Stable cardiomegaly and pulmonary vascular congestion. There has been improved aeration of the right middle lobe. No new infiltrates. There is a stable trace right pleural effusion. IMPRESSION: Improved aeration of the right lung base. Electronically signed by Lucas Us 10/02/2019 7:35 AM
[2019-10-02] MEDS: TESSALON PO SCH ×3 (08:24→20:47)
[2019-10-02] MEDS: ELIQUIS PO SCH ×2 (08:24→20:47)
[2019-10-02] MEDS: CARDIZEM CD PO SCH (08:24)
[2019-10-02] MEDS: IMDUR PO SCH ×2 (08:24→20:47)
[2019-10-02] MEDS: TOPROL XL PO SCH (08:24)
--- NOTE | 2019-10-02 20:20 | PROGRESS NOTE ---
DATE: 10/02/2019 SUBJECTIVE: The patient is sitting up in bed. He states that he feels much better today. He feels less short of breath. OBJECTIVE: Vital Signs: Temperature 98.6 degrees, blood pressure 120/74, heart rate 81, respirations 22, O2 saturations 97% on 2 L nasal cannula. General: This is a chronically ill- appearing elderly male sitting at the edge of the bed in no acute distress. Heart: S1, S2 normal. Regular rate and rhythm. Lungs: Equal air entry bilaterally. No wheezing. No rales. No rhonchi. Abdomen: Positive bowel sounds. Soft, nontender, nondistended. Extremities: No edema. No cyanosis. No calf tenderness. Neurologic: The patient is alert and oriented x3. LABS: Sodium 142, potassium 3.8, chloride 104, CO2 25, BUN 15, creatinine 1.4, glucose 100. Chest x-ray reveals improved aeration of the right lung base. ASSESSMENT AND PLAN: 1. Chronic hypoxemic respiratory failure. Multifactorial. 2. Bilateral pleural effusions. Stable. 3. Acute on chronic systolic congestive heart failure exacerbation. Improved. The chest x-ray is improved today. 4. Ischemic cardiomyopathy. Aware. 5. Untreated bronchoalveolar carcinoma. Aware. 6. Chronic obstructive pulmonary disease. Continue with bronchodilator therapy. 7. Chronic kidney disease stage 3. Stable. 8. Atrial fibrillation. The patient is rate controlled. Continue on Cardizem, Toprol, and Eliquis. 9. Disposition. Continue with physical therapy. 10. We will initiate discharge planning. cc: Zahra Salazar MD [facility]TDD
[2019-10-02] MEDS: AMBIEN PO SCH (20:47)
[2019-10-03] MEDS: ZOSYN 3.375 GM in NS 50 ML IV SCH ×4 (00:05→17:36)
[2019-10-03] MEDS: DUONEB (A & A) INH SCH ×6 (03:50→23:45)
[2019-10-03] MEDS: PROTONIX PO SCH (06:07)
[2019-10-03] MEDS: ZYVOX 600 MG/D5W 600 MG/300 ML IVPB IV SCH ×2 (06:07→17:35)
[2019-10-03 06:14] LABS: HEMATOCRIT 29.7 % (42.0-52.0); HEMOGLOBIN 9.6 g/dL (14.0-18.0); MCH 30.4 PG (27-31); MCHC 32.3 g/dL (33-37); MPV 10.3 FL (7.4-10.4); RBC 3.16 XMIL (4.7-6.1); RDW 17.5 % (11.5-14.5); WBC 4.49 X1000 (4.8-10.8)
[2019-10-03 06:42] LABS: CALCIUM 8.6 mg/dL (8.8-10.2); CREATININE 1.5 mg/dL (0.7-1.2); POTASSIUM 4.1 mmol/L (3.5-5.1)
[2019-10-03] MEDS: TOPROL XL PO SCH (08:21)
[2019-10-03] MEDS: CARDIZEM CD PO SCH (08:21)
[2019-10-03] MEDS: IMDUR PO SCH ×2 (08:21→20:15)
[2019-10-03] MEDS: ELIQUIS PO SCH ×2 (08:21→20:15)
[2019-10-03] MEDS: TESSALON PO SCH ×3 (08:21→20:15)
--- NOTE | 2019-10-03 10:27 | Diag Imaging Result Doc PS360 ---
EXAM: CHEST-2 VIEWS 10/03/2019 HISTORY: dyspnea TECHNIQUE: PA and lateral chest COMMENT: The inspiration is less optimal than on 10/02/2019. There is cardiomegaly. There is marked pleural thickening and volume loss over the right apical region with retraction of the trachea to the right. Compared to the previous examination there is slightly more opacification of the lung bases which may be due to pulmonary edema. There is a small amount of pleural fluid on the right. IMPRESSION: Worsened pulmonary edema. Electronically signed by Elmer Tamez 10/03/2019 10:24 AM
[2019-10-03] MEDS ORDERED: LASIX IV ONE (11:34)
--- NOTE | 2019-10-03 16:46 | PROGRESS NOTE ---
DATE: 10/03/2019 SUBJECTIVE: The patient is sitting up in bed resting comfortably. He continues to complain of shortness of breath with minimal exertion. He has been getting up and walking to the bathroom, but feels very winded once he gets back to his bed. OBJECTIVE: Vital Signs: Temperature 98.1 degrees, blood pressure 143/63, heart rate 67, respirations 18, O2 saturations 100% on 2 L nasal cannula. General: This is a chronically ill- appearing elderly male lying in bed in no acute distress. Heart: S1, S2 normal. Regular rate and rhythm. Lungs: Equal air entry bilaterally. No wheezing. No rales. Abdomen: Positive bowel sounds. Soft, nontender, nondistended. Extremities: No edema. No cyanosis. No calf tenderness. Neurologic: The patient is alert and oriented x4. No focal neurologic deficits noted. LABORATORY DATA: White blood cell count 4.4, hemoglobin 9.6, hematocrit 29, platelets 186,000. Sodium 140, potassium 4.1, chloride 104, CO2 25, BUN 15, creatinine 1.5, glucose 94, calcium 8.6. Chest x-ray shows worsened pulmonary edema. ASSESSMENT AND PLAN: 1. Chronic hypoxemic respiratory failure. Multifactorial. The patient has lung cancer, as well as pulmonary edema. 2. Bilateral pleural effusions. Stable. 3. Acute on chronic systolic congestive heart failure exacerbation. The x-ray today shows worsening pulmonary edema. We will give the patient a dose of diuretic therapy. 4. Ischemic cardiomyopathy. Aware. 5. Untreated bronchoalveolar carcinoma. Aware. Dr. Galaviz is following. 6. Chronic obstructive pulmonary disease. Stable continue with bronchodilator therapy. 7. Chronic kidney disease stage 3. Stable. 8. Atrial fibrillation. The patient is rate controlled. Continue on Cardizem, Toprol, and Eliquis. 9. Disposition. Continue with physical therapy. 10. The patient is trying to decide whether he wants to go home with home health or to go to inpatient rehab. He and his family will discuss it further. cc: Zahra Salazar MD MTDD
[2019-10-03] MEDS: AMBIEN PO SCH (20:15)
--- NOTE | 2019-10-03 22:18 | PULMONOLOGY PROGRESS NOTE ---
DATE: 10/03/2019 SUBJECTIVE: The patient is awake, alert, and conversant. He reports his breathing is fair. He has been ambulating in the room. OBJECTIVE: Vital Signs: The patient has been afebrile for the last 24 hours. Blood pressure 131/64, heart rate 81, respiratory rate 18, oxygen saturation 100% on 2 L per nasal cannula. HEENT: Pupils are equal and reactive. Oropharynx appears clear. Neck: Supple. Chest: Reveals diminished breath sounds right apex and in both lung bases. Cardiac: S1, S2. Abdomen: Soft. Extremities: Reveal chronic vascular insufficiency. LABORATORIES: Chest x-ray reveals cardiomegaly, consolidation of the right upper lobe, slightly worsening pulmonary edema. Sodium 140, potassium 4.1, chloride 104, bicarbonate 25, BUN 15, creatinine 0.4. IMPRESSION: An 89-year-old with 1. Acute hypoxemic respiratory failure. 2. 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 3. Ischemic cardiomyopathy. 4. Pleural effusions. 5. Noncompliance with diuretics. DISCUSSION: 89-year-old with problems outlined above. He appears to be approaching his baseline. PLAN: 1. Continue to wean oxygen. 2. Continue diuretics. 3. Anticipate discharge home for transfer to rehab facility soon. cc: Guilherme Ramos MD
[2019-10-04] MEDS: ZOSYN 3.375 GM in NS 50 ML IV SCH ×3 (00:24→12:06)
[2019-10-04] MEDS: DUONEB (A & A) INH SCH ×3 (03:40→11:34)
[2019-10-04] MEDS: ZYVOX 600 MG/D5W 600 MG/300 ML IVPB IV SCH (05:41)
[2019-10-04] MEDS: PROTONIX PO SCH ×2 (05:52→06:14)
[2019-10-04] MEDS ORDERED: LASIX IV ONE (06:00)
[2019-10-04 06:21] LABS: HEMATOCRIT 32.1 % (42.0-52.0); HEMOGLOBIN 10.6 g/dL (14.0-18.0); MCH 30.5 PG (27-31); MCV 92.5 FL (81-99); MPV 10.5 FL (7.4-10.4); RBC 3.47 XMIL (4.7-6.1); RDW 17.5 % (11.5-14.5)
[2019-10-04 06:48] LABS: CALCIUM 8.6 mg/dL (8.8-10.2); CREATININE 1.6 mg/dL (0.7-1.2); POTASSIUM 4.1 mmol/L (3.5-5.1)
--- NOTE | 2019-10-04 07:41 | Diag Imaging Result Doc PS360 ---
CHEST-PORTABLE - 10/04/2019 INDICATION: pulmonary edema COMPARISON: 10/03/2019 FINDINGS: Stable cardiomegaly and pulmonary vascular congestion. Stable hazy interstitial infiltrates consistent with pulmonary edema. Stable dense consolidation at the right lung apex. No new infiltrates. No large pleural effusion. IMPRESSION: No change from prior. Electronically signed by Lucas Us 10/04/2019 7:38 AM
[2019-10-04] MEDS: TOPROL XL PO SCH (09:30)
[2019-10-04] MEDS: IMDUR PO SCH (09:30)
[2019-10-04] MEDS: TESSALON PO SCH (09:30)
[2019-10-04] MEDS: ELIQUIS PO SCH (09:30)
[2019-10-04] MEDS: CARDIZEM CD PO SCH (09:30)
[2019-10-04 12:05] VITALS: BP 149/81
--- NOTE | 2019-10-04 22:26 | DISCHARGE SUMMARY ---
ADMISSION DATE: 09/27/2019 DISCHARGE DATE: 10/04/2019 DISCHARGE DISPOSITION: Home with home physical therapy. DISCHARGE CONDITION: Hemodynamically stable. He denies any chest pain. He denies any shortness of breath or palpitation. He is eating better. He had a bowel movement. His son and daughter are at bedside. They are in agreement with the plan. DISCHARGE DIAGNOSES: 1. Acute on chronic hypoxic respiratory failure. 2. Acute pulmonary edema 2. Bilateral pleural effusion. 3. Acute systolic congestive heart failure exacerbation on chronic systolic congestive heart failure. 4. Pneumonia. OTHER DIAGNOSES: 1. History of untreated bronchoalveolar carcinoma. 2. History of chronic atrial fibrillation on anticoagulation. 3. History of chronic kidney disease stage III. 4. History of chronic obstructive pulmonary disease (COPD) on home oxygen with chronic hypoxic respiratory failure. 5. History of coronary artery disease and stent in the past with ischemic cardiomyopathy. DISCHARGE MEDICATIONS: Zolpidem 10 mg at nighttime, simvastatin 20 mg at nighttime, apixaban 2.5 mg b.i.d., isosorbide mononitrate 30 mg b.i.d., pantoprazole 40 mg daily, metoprolol extended release 25 mg daily, diltiazem 180 mg daily, losartan 50 mg b.i.d., furosemide 40 mg daily, levofloxacin 500 mg daily for 3 days. VITALS AT TIME OF DISCHARGE: Temperature 97.7 degrees, pulse 83, respiratory rate 26, blood pressure 114/81, saturating 98% on 2 L nasal cannula. PHYSICAL EXAMINATION: Not in acute distress. Oral cavity is moist. Air entry bilaterally equal. No wheeze, no crackles, no rhonci. No murmur, rub or gallop. The abdomen is soft, nontender. No lower extremity edema. He is alert and oriented x3. He does have decreased air entry with rhonchorous breath sounds on the right upper suprascapular region. He is alert and oriented x3. LABORATORIES AT THE TIME OF DISCHARGE: WBC 5000, hemoglobin 10.6, platelets 190,000, potassium 4.1, sodium 143, BUN 19, creatinine 1.6 with GFR 49. ProBNP of 3600. MICROBIOLOGY DURING HOSPITAL ADMISSION: Influenza screen, blood culture did not have any growth. IMAGING DURING HOSPITAL ADMISSION: Chest of abdomen, CT scan on 09/28/2018 had a worse pleural effusion, stable or slightly diminished pleural-based opacities bilaterally with complete atelectasis of right upper lobe, renal and hepatic cysts, constipation. Chest x-ray on 10/04/2019 had stable interstitial infiltrate consistent with pulmonary edema. Stable dense consolidation at the right lung apex without any new infiltrate Electrocardiogram on presentation had atrial fibrillation with premature ventricular complexes. HOSPITAL COURSE SUMMARY: Mr. Leong is an 89-year-old man who presented on 09/27/2019 with chief complaints of shortness of breath. Apparently, the patient does have chronic systolic heart failure. However, he oftentimes does not take his diuretic as prescribed because he has to frequently urinate. He had started developing shortness of breath which was not improving, so he decided to come to the hospital, along with family members, where a chest x-ray revealed a right middle lobe pneumonia and he underwent a CT scan which had detected bilateral pleural effusions and pneumonia so he was admitted for further management. He was started on intravenous antibiotics and intravenous Lasix for his acute hypoxic respiratory failure because of pneumonia and pleural effusions. After antibiotics and Lasix, his condition improved. Later on at the time of discharge, his antibiotics had been changed to oral, and he was advised to take his Lasix oral on a daily basis. He was breathing well on 2 L nasal cannula, which is his baseline, at the time of discharge. The patient has good family support and they wanted the patient to go home. The patient will be discharged home on home oxygen. A prescription has been provided for him to complete the remaining course of antibiotics. TIME SPENT: More than 30 minutes' time was spent in dictating this discharge summary. I sat down. I had a detailed discussion about his pneumonia, systolic congestive heart failure and pleural effusions with the patient, his daughter and son. I discussed with them about the need for taking Lasix continuously. I also discussed with them about patient's chronic kidney disease stage III. The patient is not on any treatment for bronchoalveolar carcinoma and the Oncology team is just following conservatively. The patient was advised to have follow up with his regular hoisting machine operator in about 7 to 10 days. I advised him to have followup with a food stand manager within 7 to 10 days to have a discussion about need for repeat chest x-ray. They were provided enough time to ask any questions and all of their questions have been satisfactorily answered. cc: MD MAR Mcgee
== END 2019-10-04 14:39 | disposition home health service (06) | DRG 193 ==
LOC: SUPCPDRO → ED 14:17 → EDIPHOLD 19:35 → SUATTDRO 19:35 → 2N 09-28 00:07
PROVIDERS: ATTEND Internal Medicine

== ENCOUNTER 2019-10-18 21:50 | Inpatient (IN) ==
--- NOTE | 2019-10-18 22:17 | PROVIDER DOCUMENTATION ---
HPI-General Adult - General Chief Complaint: Hip Injury Stated Complaint: fall Time Seen by Provider: 10/18/19 22:13 Source: patient Allergies/Adverse Reactions: Patient Allergies Allergy/AdvReac Type Severity Reaction Status Date / Time No Known Allergies Allergy Verified 10/18/19 23:36 Home Medications: Home Medication List Medication Instructions Recorded Confirmed Last Taken Type Apixaban [Eliquis] 2.5 mg PO BID 10/08/17 10/18/19 07/16/19 History Pantoprazole [Protonix] 40 mg PO DAILY 10/08/17 10/18/19 07/16/19 History Losartan [Cozaar] 50 mg PO BID tablet 04/27/18 10/18/19 07/16/19 Rx Isosorbide Mononitrate [Isosorbide 30 mg PO BID 08/20/18 10/18/19 07/16/19 History Mononitrate ER] Diltiazem C.d. [Cardizem Cd] 180 mg PO DAILY #30 cap 10/24/18 10/18/19 07/16/19 Rx Furosemide [Lasix] 40 mg PO DAILY #30 tab 10/24/18 10/18/19 07/16/19 Rx Metoprolol Succinate E.r. [Toprol 25 mg PO DAILY 09/27/19 10/18/19 Unknown History Xl] Simvastatin 20 mg PO QHS 09/27/19 10/18/19 Unknown History Sertraline HCl 50 mg PO DAILY 10/18/19 10/18/19 Unknown History - History of Present Illness -Gen Adult Nature of Presenting Problems: 89yo male presents with CC fall with LE pain. The patient reports that he was getting ready for bed and fell on his buttock. The patient denies head injury or LOC. The patient reports in both legs and his right hip. The pt did feel a little dizzy prior to fall, but denied any chest pain. The patient denies other pain. The patient does reports chronic shortness of breath on 2L O2 at home. The patient denies any bleeding. Location of Pain/Injury: reports: lower extremity, other (hip) Severity: reports: moderate (described as moderate) Onset/Duration: reports: this evening Timing: reports: still present Context/Activities at Onset: reports: other (fall this evening) Associated Symptoms: reports: shortness of breath, other (no LOC, no bleeding, no head injury) Review of Systems - Adult - REVIEW OF SYSTEMS - ADULT Constitutional: reports: no symptoms reported Eyes: reports: no symptoms reported. denies: eye pain Ears, Nose, Mouth & Throat: reports: no symptoms reported. denies: throat pain Cardiovascular: reports: no symptoms reported. denies: chest pain Respiratory: reports: no symptoms reported. denies: shortness of breath Gastrointestinal: reports: no symptoms reported. denies: abdominal pain Genitourinary: reports: no symptoms reported. denies: flank pain Musculoskeletal: reports: joint pain (hip pain), other (leg pains) Integumentary: reports: no symptoms reported Neurological: reports: dizziness/vertigo Psychiatric: reports: no symptoms reported. denies: alcohol/drug dependence Endocrine: reports: no symptoms reported Hematologic/Lymphatic: reports: no symptoms reported, other (no bleeding) Allergic/Immunologic: reports: no symptoms reported, other (no swelling) Past History - Adult - PAST MEDICAL HISTORY-ADULT Review of Records: reports: Old Records Reviewed Major Childhood Illnesses: reports: denies history Cardiovascular: reports: A-Fib, CAD, CHF, HTN, hyperlipidemia, PAD Respiratory: reports: cancer Gastrointestinal: reports: denies history Obstetrical/Gynecological: reports: denies history Genitourinary: reports: denies history Musculoskeletal: reports: arthritis, other (gout) Neurological: reports: CVA Psychiatric: reports: denies history Endocrine/Immune: reports: denies history Other Conditions: reports: denies history - PRIOR SURGERIES/PROCEDURES Surgical/Procedure History: reports: cardiac stent, orthopedic (extremity) (right foot), other (Stents) - PRIOR HOSPITALIZATIONS Prior Hospitalizations: reports: none - IMMUNIZATION STATUS Childhood Immunizations: See Nurse Assessment Flu Vaccine: See Nurse Assessment - FAMILY HISTORY Family History: reviewed, not pertinent Physical Exam-General - CONSTITUTIONAL General Appearance: alert, no apparent distress - EYES Eyes: negative: conjuctival exudate, scleral icterus - HEAD, EARS, NOSE, MOUTH & THROAT HENMT: pharynx normal. negative: moist mucous membranes (dry) - NECK Neck: non-tender, supple - RESPIRATORY Respiratory: normal breath sounds, no respiratory distress - CARDIOVASCULAR Cardiovascular: regular rate, rhythm, no edema - GASTROINTESTINAL (ABDOMEN) Abdominal Exam: non tender, soft - MUSCULOSKELETAL Extremity: other (tenderness with palpation of the right hip, no significant tenderness of the left leg or hip, moves distal RLE, normal cap refill noted in the RLE) - SKIN Integumentary: other (no open wound noted, chronic venous insufficiency changes noted in the LE bilaterally) - NEUROLOGIC Neurologic: grossly normal. negative: facial droop - PSYCHIATRIC Psych/Mental Status: normal mood/affect, normal thought process Progress - PLAN OF CARE/RESULTS Progress/Plan/Lab Results: Vital Signs - 8 hr 10/18/19 22:14 Temperature 97.8 F Pulse Rate 65 Respiratory Rate 17 Blood Pressure 167/90 O2 Sat by Pulse Oximetry 99 Orders Category Date Time Status XRAY HIP W/PELVIS BILAT 3-4VWS [RAD] Stat Exams 10/18/19 22:14 Ordered Result Diagrams: 10/18/19 23:04 10/18/19 23:04 - REASSESSMENT Reassessment #1 Status: other (Hip Xray showing right femur fracture. CT Head without acute changes. Discussed case with ortho who recomend admission to the hospitalist team. Discussed with the hospitalist team who has accepted the patient.) Departure - Departure Date of Disposition Decision: 10/19/19 Time of Disposition Decision: 01:01 DIAGNOSIS: Femur fracture Qualifiers: Encounter type: initial encounter Femur location: head, articular portion Fracture type: closed Fracture alignment: displaced Laterality: right Qualified Code(s): S72.061A - Displaced articular fracture of head of right femur, initial encounter for closed fracture Disposition: ADMITTED INPATIENT 09 Certified Medical Emergency: Emergent Condition: Fair - Critical Care Note This patient required my direct & personal management of CC.: No Attestation - Physician/ CRISTI Attestation Patient care was provided by Advanced Practice Provider:: No The physician spent face to face time with patient:: Yes Advanced Practice Provider documentation review:: Supervising physician onsite and consulted in the evaluation and care of this patient. The physician did have a face to face encounter with the patient.
[2019-10-18] MEDS ORDERED: ZOFRAN IV ONE (23:05)
[2019-10-18] MEDS ORDERED: MORPHINE IV ONE (23:05)
[2019-10-18] MEDS ORDERED: ZOFRAN ONE (23:11)
[2019-10-18] MEDS ORDERED: MORPHINE ONE (23:11)
[2019-10-18 23:21] LABS: BASO# 0.02 X1000 (0.0-0.2); BASO% 0.2 % (0.0-0.8); EOS# 0.25 X1000 (0.0-0.7); EOS% 2.9 % (0.0-10.0); HEMATOCRIT 33.3 % (42.0-52.0); HEMOGLOBIN 10.5 g/dL (14.0-18.0); IMM GRAN# 0.02 X1000 (0.0-0.04); IMM GRAN% 0.2 % (0.0-0.5); LYMPH# 0.78 X1000 (1.2-3.4); LYMPH% 9.1 % (20.5-51.1); MCH 28.7 PG (27-31); MCHC 31.5 g/dL (33-37); MONO# 0.61 X1000 (0.11-0.59); MONO% 7.1 % (1.7-9.3); MPV 10.9 FL (7.4-10.4); NEUT# 6.88 X1000 (1.4-6.5); NEUT% 80.5 % (42.2-75.2); PLT 272 X1000 (130-400); RBC 3.66 XMIL (4.7-6.1); RDW 17.1 % (11.5-14.5); WBC 8.56 X1000 (4.8-10.8)
[2019-10-18 23:31] LABS: INR 1.27; PROTIME 16.1 Seconds (11.0-16.0)
[2019-10-18 23:32] LABS: PTT 30.6 Seconds (22.3-41.8)
[2019-10-18 23:47] LABS: ALB/GLOB RATIO 1.1; ALBUMIN 3.6 g/dL (3.5-5.0); CALCIUM 8.5 mg/dL (8.8-10.2); CREATININE 1.5 mg/dL (0.7-1.2); POTASSIUM 3.7 mmol/L (3.5-5.1); TOTAL BILIRUBIN 0.52 mg/dL (0.20-1.00); TOTAL PROTEIN 6.9 g/dL (6.3-8.3)
[2019-10-19] MEDS ORDERED: NS 1,000 ML IV ONE (00:19)
[2019-10-19] MEDS ORDERED: ZOFRAN IV PRN ×2 (01:01→19:04)
[2019-10-19] MEDS ORDERED: TYLENOL PO PRN (01:01)
[2019-10-19] MEDS: DILAUDID IV PRN ×3 (02:13→14:25)
[2019-10-19] MEDS: PRILOSEC PO SCH (06:48)
[2019-10-19 07:14] LABS: EOS# 0.02 X1000 (0.0-0.7); EOS% 0.2 % (0.0-10.0); HEMATOCRIT 33.3 % (42.0-52.0); HEMOGLOBIN 10.4 g/dL (14.0-18.0); IMM GRAN# 0.03 X1000 (0.0-0.04); IMM GRAN% 0.3 % (0.0-0.5); LYMPH# 0.76 X1000 (1.2-3.4); LYMPH% 6.8 % (20.5-51.1); MCH 28.7 PG (27-31); MCHC 31.2 g/dL (33-37); MONO# 0.73 X1000 (0.11-0.59); MONO% 6.5 % (1.7-9.3); MPV 10.9 FL (7.4-10.4); NEUT# 9.66 X1000 (1.4-6.5); NEUT% 86.2 % (42.2-75.2); PLT 266 X1000 (130-400); RBC 3.62 XMIL (4.7-6.1); RDW 17.1 % (11.5-14.5)
[2019-10-19 07:25] LABS: AGAP 12; ALB/GLOB RATIO 1.2; ALBUMIN 3.7 g/dL (3.5-5.0); ALKALINE PHOSPHATASE 98 U/L (32-122); BUN 19 mg/dL (8-22); CALCIUM 8.4 mg/dL (8.8-10.2); CHLORIDE 107 mmol/L (98-107); COSMO 293; CREATININE 1.3 mg/dL (0.7-1.2); ESTIMATED GFR > 60; GLUCOSE 130 mg/dL (70-104); GOT 14 U/L (10-34); GPT 11 U/L (10-44); MAGNESIUM 1.4 mg/dL (1.5-2.7); POTASSIUM 3.5 mmol/L (3.5-5.1); SODIUM 145 mmol/L (136-145); TCO2 26 mmol/L (25-35); TOTAL BILIRUBIN 0.53 mg/dL (0.20-1.00); TOTAL PROTEIN 6.7 g/dL (6.3-8.3)
--- NOTE | 2019-10-19 07:27 | Diag Imaging Result Doc PS360 ---
EXAM: CHEST-1 VIEW 10/18/2019 HISTORY: Pre op TECHNIQUE: AP semiupright portable at 2321 COMMENT: There is a right perihilar mass with collapse of the right upper lobe. There is ill-defined opacity in the right lower lobe. These findings were also present on 10/04/2019. There is some interstitial opacity in the lung bases and blunting of the right costophrenic angle which was not as evident on the previous study. IMPRESSION: Small right pleural effusion. Minimal pulmonary edema. Otherwise stable since 10/04/2019. Electronically signed by Elmer Tamez 10/19/2019 7:25 AM
--- NOTE | 2019-10-19 07:52 | Diag Imaging Result Doc PS360 ---
EXAM: XRAY HIP W/PELVIS BILAT 3-4VWS 10/18/2019 HISTORY: Fall with Hip deformity TECHNIQUE: AP portable pelvis and left hip COMMENT: There is an intertrochanteric fracture of the right hip. There is generalized osteopenia. The left hip joint spaces well-maintained. There is extensive atherosclerotic calcification. IMPRESSION: Right intertrochanteric fracture. Electronically signed by Elmer Tamez 10/19/2019 7:49 AM
--- NOTE | 2019-10-19 07:53 | Diag Imaging Result Doc PS360 ---
EXAM: CT HEAD W/O CONTRAST INDICATION: Fall TECHNIQUE: This exam was performed using automated exposure control, adjustment of mA or kV according to patient size, and/or use of iterative reconstruction technique. COMPARISON: 01/16/2018 FINDINGS: There is stable senescent diffuse brain atrophy. There is no definite acute infarct given the limited sensitivity of CT versus MRI. There is no discrete intracranial mass, mass effect, or intracranial hemorrhage. 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 Surrounding soft tissues and bony structures are essentially unremarkable, otherwise. The calvaria is intact. IMPRESSION: Stable brain atrophy. No definite acute intracranial pathology. Electronically signed by Quintin Mcmahon 10/19/2019 7:51 AM
--- NOTE | 2019-10-19 08:28 | EKG Report ---
Test Performed on : 10/19/2019 00:19:22 AM Test Reason : Pre op Blood Pressure : / mmHG Vent. Rate : 053 BPM Atrial Rate : 036 BPM P-R Int : 000 ms QRS Dur : 086 ms QT Int : 474 ms P-R-T Axes : 000 054 021 degrees QTc Int : 444 ms Atrial fibrillation. with slow ventricular response. Abnormal ECG When compared with ECG of 27-SEP-2019 14:43, (Unconfirmed) No significant change was found Unconfirmed Result
[2019-10-19 08:30] LABS: BANDS 2 % (0-1); HYPOCHROM 1+; LYMPHS 12 % (21-51); SEGS 86 % (42-75)
[2019-10-19] MEDS: KEFZOL 1 GM/D5W 1 GM/50 ML IVPB IV SCH ×3 (08:33→16:10)
--- NOTE | 2019-10-19 08:34 | HISTORY AND PHYSICAL ---
PRIMARY CARE PROVIDER: Dr. Frederick Sandra. CHIEF COMPLAINT: Fall with right hip pain. HISTORY OF PRESENT ILLNESS: Mr. Leong is an 89-year-old gentleman with a known past medical history of untreated bronchoalveolar carcinoma, chronic atrial fibrillation on Eliquis, last took his dose on 10/18, chronic kidney disease stage 3, COPD on home O2 with chronic hypoxemic respiratory failure, coronary artery disease with stent in the past and ischemic cardiomyopathy, came to the ED after he was getting ready for bed, putting on his bed clothes. He lost his balance and fell, had immediate right hip pain. He denies any dizziness or chest pain or shortness of breath prior to his fall. However, he does admit since his last discharge he has just been generally weak and feels like his legs just gave out on him. Workup in the ED did reveal a right hip fracture that did have Dopplerable pulse on the right. Head CT did not show anything acute. Chest x-ray compared to previous looks like improvement, still looks like a lot of atelectasis up in the right chest. He will be admitted to the surgical telemetry floor with a consult for Orthopedics. PAST MEDICAL HISTORY: Per HPI. PAST SURGICAL HISTORY: Cardiac stent and foot surgery. SOCIAL HISTORY: He lives with his son. No alcohol, tobacco, or illicit drug use. ALLERGIES: No known drug allergies. HOME MEDICATIONS: 1. Zocor 20 mg p.o. at bedtime. 2. Cardizem CD 180 p.o. daily. 3. Lasix 40 mg p.o. daily. 4. Isosorbide mononitrate 30 mg p.o. b.i.d. 5. Cozaar 50 mg p.o. b.i.d. 6. Metoprolol 25 mg p.o. daily. 7. Prilosec 20 mg p.o. daily. 8. Zoloft 50 mg p.o. daily. 9. Eliquis 2.5 mg p.o. b.i.d., currently being held in anticipation for surgery. REVIEW OF SYSTEMS: Twelve-point review of systems completely negative except for those mentioned in HPI. Currently having some problems with urination secondary to laying flat. We will place an order for Ragland catheter and complaining of some right hip pain. We will continue with pain regimen. PHYSICAL EXAMINATION: VITAL SIGNS: Temperature is 97.8 degrees, heart rate 64, respirations 24, blood pressure 145/89, O2 is 95% on room air. GENERAL: Mr. Leong is a pleasant, 89-year-old male who is lying in the stretcher in the emergency room. He is complaining of some right hip pain as well as pain from needing to urinate, but in no acute distress. CARDIOVASCULAR: S1, S2 appreciated. Did not appreciate any lower extremity edema. However, his right pedal pulse did need to be Doppler. PULMONARY: Bilateral breath sounds. Did not appreciate any rales, rhonchi, or wheezes. GI: Flat, soft, nontender, nondistended. Positive bowel sounds 4 quadrants. NEUROLOGIC: No focal deficit. Answered all questions appropriately. SKIN: Appears to be warm, dry, and intact. MUSCULOSKELETAL: His right leg is shortened, external rotation. DIAGNOSTIC DATA: Hip x-ray shows a right femoral neck fracture. Head CT did not show anything acute. LABORATORY DATA: White count 8, hemoglobin and hematocrit 10 and 33, platelet count of 272,000. Sodium 147, potassium of 3.7, BUN 20, creatinine 1.5, blood glucose of 127. ASSESSMENT/PLAN: 1. Right femoral neck fracture. Patient will continue to be NPO. He was given a liter bolus of IV fluids. Given his history of congestive heart failure, we will hold off on any more fluids for now. Consult Orthopedics. Continue with pain regimen. Pulses are being Dopplered to that right lower extremity. Head CT was negative. 2. History of untreated bronchoalveolar carcinoma followed by Dr. Galaviz. I believe the plan is just to continue to watch. 3. History of chronic atrial fibrillation on anticoagulation. Eliquis is being held. Last dose was yesterday morning. 4. Chronic kidney disease stage 3 at baseline. 5. History of congestive heart failure without exacerbation. 6. History of chronic obstructive pulmonary disease on home O2 with chronic hypoxemic respiratory failure without exacerbation. 7. History of coronary artery disease and stent in the past with ischemic cardiomyopathy. No complaints of chest pain. 8. Code status the patient does have a portable DNAR on file. We did discuss code status while the patient was in the hospital. We went over mechanical ventilation as well as CPR. The patient was going to think about it and discuss it with his family. 9. Further recommendation to follow physician evaluation, laboratory and diagnostic data. Dictated by ZOYA Morales for Artem Vanegas MD I have performed a face to face diagnostic evaluation. Labs/xrays- reviewed. Exam: Chest-clear, CV- regular, Ext- rt hip tenderness. A/P- Rt femoral neck fracture- Admit, NPO, Pain control, orthopedics consult. Dr. Vanegas cc: MD Frederick Suarez MD Naveen T. Lobo, MD Richard S. Sharp, MD [facility]
[2019-10-19] MEDS: CARDIZEM CD PO SCH (08:48)
[2019-10-19] MEDS: TOPROL XL PO SCH (08:49)
[2019-10-19] MEDS ORDERED: KEFZOL 2 GM/D5W 2 GM/50 ML IVPB IV ONE (09:20)
--- NOTE | 2019-10-19 10:44 | Diag Imaging Result Doc PS360 ---
EXAM: ANKLE COMPLETE RIGHT 10/19/2019 HISTORY: Right ankle pain TECHNIQUE: Right ankle portable four views COMMENT: There is a pin in the fifth metatarsal. There is apparent ankylosis of the metatarsals with the cuneiforms and cuboid. There may be ankylosis with the tarsal navicular. The ankle mortise is intact. There is no evidence of acute fracture or dislocation. There is soft tissue swelling both anteriorly and on the medial aspect of the ankle. IMPRESSION: No evidence of acute bony abnormality. Electronically signed by Elmer Tamez 10/19/2019 10:41 AM
[2019-10-19] MEDS ORDERED: LASIX IV ONE (10:56)
[2019-10-19] MEDS ORDERED: MAGNESIUM SULFATE 2 GM/S.W.I. 2 GM/50 ML IVPB IV ONE (11:03)
--- NOTE | 2019-10-19 15:03 | ORTHOPAEDICS CONSULTATION ---
DATE: 10/19/2019 CHIEF COMPLAINT: Fall, right hip pain. HISTORY OF PRESENT ILLNESS: This 89-year-old male with a history of lung cancer, atrial fibrillation, chronic kidney disease stage III, COPD with home O2, chronic hypoxemia, CAD and cardiomyopathy, reports he started getting dizzy, lost his balance and fell, landing on his right hip. He immediately had right hip pain and could not ambulate. He denied chest pain or shortness of breath at that time. He was brought to the emergency department where they did an x- ray and confirmed a right intertrochanteric hip fracture. Orthopedics was consulted to come to the patient. PAST MEDICAL HISTORY: This is listed in HPI. PAST SURGICAL HISTORY: This patient has had a cardiac stent placement before. SOCIAL HISTORY: He lives with his family. He denies alcohol, tobacco, or illicit drug use. ALLERGIES: There are no known drug allergies. HOME MEDICATIONS: Zocor 20 mg daily at bedtime, Cardizem CD 180 daily, Lasix 40 mg daily, isosorbide [place] 30 mg b.i.d., Cozaar 50 mg b.i.d., metoprolol 25 mg daily, Prilosec 20 mg daily, Zoloft 50 mg daily, Eliquis 2.5 mg b.i.d. REVIEW OF SYSTEMS: A 14 point review of systems were performed. Pertinent positives listed in HPI. PHYSICAL EXAMINATION: Vital Signs: Temperature 98.3 degrees, pulse rate 80, respiratory rate 16, blood pressure 154/96, oxygen is 100% on 2 liters. General: Patient is awake, alert, sitting in the bed in no acute distress. Cardiovascular: There is a regular rate and rhythm at this time. Pulmonary: There is equal chest expansion rise and fall. Extremities: The right lower extremity is shortened and externally rotated. There is pain about the anterior and lateral portion of the right hip. There is no bridging or swelling notable at this time. There are decreased pedal pulses to the right lower extremity. These pulses, however, are faintly palpable. There is good capillary refill in the toes. DIAGNOSTIC DATA: X-rays of the right hip show right intertrochanteric hip fracture. LABS: White blood cells 11.20, red blood cells 3.62, hemoglobin 13.4, hematocrit 33.3, platelets 266. INR 1.27. Sodium 145, potassium 3.5, chloride 107. BUN 19, creatinine 1.3, glucose 130, calcium 8.4, magnesium 1.4. Troponin T 33. ProBNP 1997. ASSESSMENT: Right intertrochanteric hip fracture. PLAN: Plan to set up a right trochanteric fixation nail, long version, hopefully some time this afternoon. We will see if we can get him cleared for surgery and we will keep the Eliquis held. We will check back on him later and make sure he is good to go for surgery. Dictated by ZOYA Chavarria for Braxton Ny MD cc: ZOYA Chavarria MD
[2019-10-19] MEDS ORDERED: DIPRIVAN 1% ONE (15:35)
[2019-10-19] MEDS ORDERED: EPHEDRINE ONE (16:23)
[2019-10-19] MEDS ORDERED: ZOFRAN ONE (16:36)
[2019-10-19] MEDS ORDERED: DECADRON ONE (16:36)
--- NOTE | 2019-10-19 16:44 | HEMO/ONC CONSULTATION ---
DATE: 10/19/2019 REASON FOR CONSULTATION: This is a known patient of ours for the observation of lung cancer. HISTORY OF PRESENT ILLNESS: Mr. Leong is an 89-year-old male who we monitor in the office for stage III right upper bronchoalveolar carcinoma. The patient came to the ED last night. As he was getting ready for bed he lost his balance and fell, and had immediate right hip pain. He denies any dizziness or chest pain or shortness of breath prior to his fall. However, he does admit since his last discharge he has been generally weak and feels like his legs just gave out on him. His workup in the ER did reveal a right hip fracture. No other fractures were noted. The patient is currently not on any treatment. His family has chosen to take the wait and watch approach with him. We will continue to monitor him every 3 months with repeat scans and labs. However, due to hospitalizations, the patient has not been in the clinic since 06/06/2019. The patient has several lung masses. He does not have any bony metastatic disease according to his last scan. The patient does have known stage 3 chronic renal disease as well as chronic atrial fibrillation, and is on Eliquis. PAST MEDICAL HISTORY: 1. Bronchioloalveolar carcinoma. 2. Atrial fibrillation. 3. CHF. 4. Ischemic cardiomyopathy. 5. COPD on continuous O2. 6. Chronic kidney disease stage 3. PAST SURGICAL HISTORY: Cardiac stents and foot surgery. SOCIAL HISTORY: He denies alcohol, tobacco, or illicit drug use. ALLERGIES: No known drug allergies. HOME MEDICATIONS: 1. Zocor. 2. Cardizem. 3. Lasix. 4. Isosorbide 5. Cozaar. 6. Metoprolol. 7. Prilosec. 8. Zoloft. 9. Eliquis. REVIEW OF SYSTEMS: The patient has right hip pain and some urinary retention. All other review of systems are negative at this time. PHYSICAL EXAMINATION: Vital Signs: Temperature 97.7 degrees, pulse rate 72, respiratory rate 16, blood pressure 130/91, O2 saturation 100% on nasal cannula at 2 L. He is in 5/10 right hip pain. General: Mr. Leong is in no acute distress although he does look uncomfortable. HEENT: Sclerae is anicteric. PERRLA. Oral mucosa is normal. Cardiovascular: Normal S1, S2. Heart rate and rhythm is regular. Respiratory: Lung sounds are clear to auscultation. Normal respiratory effort. Gastrointestinal: Abdomen soft, nontender, and nondistended. Bowel sounds. Neurological: Alert and oriented x3. Musculoskeletal: Shortened right leg with external rotation. LABORATORY DATA: WBCs 11.2, hemoglobin 10.4, hematocrit 33.3, and platelet count 260,000. Creatinine 1.3, calcium 8.4, and magnesium 1.4. BNP 1998. RADIOLOGY: PET and pelvis x-ray, right intertrochanteric fracture. Chest x-ray with small right pleural effusion. Minimal pulmonary edema. CT head without contrast. Stable brain atrophy. No intracranial pathology. Right ankle with no evidence of acute bony abnormality. ASSESSMENT AND PLAN: 1. Bronchoalveolar lung cancer. The patient is simply being monitored at this time. He is not on any current therapy. We will continue to follow along. Please feel free to contact us if needed for questions. 2. Right femoral neck fracture. The patient is under the care of Orthopedics. The patient's Eliquis has been held. 3. History of atrial fibrillation on anticoagulation. Eliquis is being held. Continue to monitor by Cardiology. 4. CKD stage 3. The patient is at his baseline. 5. DVT prophylaxis. Continue to monitor the patient closely. Bridge with Lovenox if he is unable to return to [facility] immediately after surgery. Dictated by ZOYA Ness for Semaj Galaviz MD As above. Question addressed with family. They are trying evaluate risks and benefits of surgery. Semaj Galaviz MD cc: Semaj Galaviz MD [facility]
[2019-10-19] MEDS: DILAUDID ONE ×2 (17:24→17:44)
[2019-10-19] MEDS ORDERED: NS 1,000 ML ONE (17:55)
[2019-10-19] MEDS ORDERED: OXY IR ONE (18:10)
--- NOTE | 2019-10-19 18:29 | ECHO REPORT ---
ORDER DATE: 10/19/2019 INDICATION: Shortness of breath, chronic. M-MODE MEASUREMENTS: Left ventricle end diastole: 4.3. Left ventricle end systole: 3.4. Posterior wall: 0.9. Interventricular septum: 0.9. Left atrium: Not properly measured here due to poor windows. It is probably enlarged. The best approximation is about 2.8 cm on the parasternal view, but it is probably larger than that. SUMMARY OF 2-DIMENSIONAL IMAGIN. The study is difficult. Global left ventricular systolic function is moderately impaired on the order of 40% to 45%. 2. The right ventricle appears to be moderately to significantly enlarged. 3. The left atrium is probably moderately enlarged. 4. The aortic valve shows thickening of the cusps without definite stenosis. Color flow mapping unremarkable. 5. The mitral valve shows a mild to moderate degree of regurgitation. There is calcification of the mitral annulus. 6. The tricuspid valve shows mild to moderate regurgitation. Pulmonary pressure is estimated at 64 to 69 mmHg. 7. The pulmonic valve shows a mild degree of regurgitation. The pulmonary diastolic pressure is estimated at 24 to 29 mmHg. 8. There is no pericardial effusion, no mass, and no thrombus. SUMMARY: 1. The study was difficult. Global ejection fraction is estimated at 40% to 45% with enlargement of the right ventricle and right atrium. 2. Pulmonary pressure is on the order of 69/29. 3. There is moderate tricuspid regurgitation. 4. There is mild to moderate mitral regurgitation. 5. There is thickening of the aortic valve without stenosis. Clinical correlation recommended. cc: MD Handy Carrillo MD
[2019-10-19] MEDS ORDERED: MORPHINE IV PRN (19:04)
[2019-10-19] MEDS ORDERED: MILK OF MAGNESIA PO PRN (19:04)
--- NOTE | 2019-10-19 19:09 | CARDIOLOGY CONSULTATION ---
DATE: 10/18/2019 CHIEF COMPLAINT ON PRESENTATION: Fall secondary to his legs giving out and subsequent right hip pain. HISTORY OF PRESENT ILLNESS: Mr. Leong is an 89-year-old black male with a history of an ischemic cardiomyopathy. He normally follows with Dr. Ray. He presented yesterday after a fall when his legs gave out and he had right hip pain associated with that. He denies any syncope. The patient has periodically had some complaints of chest discomfort, but this is not exertional in etiology. There is no reproducible with palpation component. He notices it most occurring throughout the day. He is on home oxygen therapy at home. He also has an untreated lung cancer. He is minimally active only ambulating in his house on a limited basis. He otherwise has no complaints. PAST MEDICAL HISTORY: Via chart review: 1. 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 This apparently is not being actively treated. 2. History of an ischemic cardiomyopathy. Last ejection fraction in October 2018 was in the 25 to 30 percent range. He has a history of a stented RCA in 2003. His last cardiac cath appears to have been in 2009. At that time he had a normal left main. The LAD had mild luminal irregularities. The diagonal had a bifurcation with the more distal limb having an 80% lesion. The circumflex had mild diffuse disease. RCA had a mid 40% lesion. Medical therapy was pursued based on that. 3. Atrial fibrillation, maintained on Eliquis. 4. Hypertension. 5. Hyperlipidemia. 6. Diabetes. 7. Chronic kidney disease. 8. Peripheral vascular disease. 9. History of carotid artery disease status post right carotid endarterectomy. SOCIAL HISTORY: He apparently lives at home with his son. No current tobacco use. FAMILY HISTORY: Hypertension. REVIEW OF SYSTEMS: A 10 system review of systems is negative except for those mentioned in HPI. PHYSICAL EXAMINATION: Vital signs: He is afebrile. His heart rate is 80. His blood pressure is 154/96. General: He is an elderly male in no acute distress. HEENT: Oropharynx is moist. He is edentulous. Eye examination is pink conjunctivae. White sclerae. Neck: Examination shows no obvious thyromegaly or thyroid tenderness. Cardiovascularly: He sounds to be in a irregularly irregular rhythm, which is consistent with atrial fib, which is noted on his telemetry. He has no lower extremity edema. He has warm and well perfused extremities. Chest: Exam has reduced breath sounds somewhat diffusely. Poor inspiratory effort. No increased work of breathing. Abdomen: Soft, nontender, nondistended. He has no obvious organomegaly. Skin: Warm and dry throughout without any rashes. Neurological: He is moving all extremities with the exception of his right lower extremity. He is not moving it subacute secondary to the hip fracture. DATA: His EKG shows rate controlled atrial fibrillation at 53 beats per minute. His head CTs shows no evidence of any acute intracranial pathology. He has a stable, diffuse brain atrophy. He had an ankle x-ray that shows no evidence of acute bony abnormality. Hip and pelvis film shows a right intertrochanteric fracture. Lab data shows a white count 11.2, hematocrit 33, platelet count 266,000. He has a slight bandemia. His sodium is 145, potassium 3.5, BUN 19, creatinine is 1.3. His proBNP is 1998. He has an albumin of 3.7. His troponin is 33. ASSESSMENT: Mr. Leong is an 89-year-old gentleman who suffered a right hip fracture secondary to a fall due to leg weakness. PLAN: At this point, the patient is high risk given his comorbidities. He has an untreated lung cancer. He has ischemic cardiomyopathy, which he seems slightly volume overloaded based an elevated JVP as well as his chest x-ray findings. He is quite debilitated at home, quite elderly, and has some baseline renal insufficiency. He has poor pulmonary status given his lung cancer, his home oxygen therapy and COPD. He has multiple significant comorbidities that are making him a high risk candidate for any operation. Despite this, I do not have any acute testing planned other than the echocardiogram. I will give him a 1 time dose of Lasix today and I will replete his magnesium if that has not already been done. I do not have any acute recommendations. Again, we will check an echo and give him 1 time dose of Lasix. cc: Nathan Fernández MD
[2019-10-19] MEDS ORDERED: HALDOL IV PRN (19:15)
[2019-10-19] MEDS: PERIDEX MT SCH (20:08)
[2019-10-19] MEDS: ZOCOR PO SCH (20:09)
[2019-10-19] MEDS: COZAAR PO SCH (20:09)
[2019-10-19] MEDS: TYLENOL PO SCH (20:09)
[2019-10-19] MEDS: COLACE PO SCH (20:09)
[2019-10-19] MEDS: NS 1,000 ML IV SCH (20:10)
[2019-10-19] MEDS: OXY IR PO PRN (21:02)
--- NOTE | 2019-10-19 22:34 | OPERATIVE NOTE ---
PROCEDURE DATE: 10/19/2019 PREOPERATIVE DIAGNOSIS: Right comminuted intertrochanteric fracture with fracture of the lesser trochanter. POSTOPERATIVE DIAGNOSIS: Right comminuted intertrochanteric fracture with fracture of the lesser trochanter. PROCEDURE PERFORMED: Right long trochanteric fixation nail placement using a [employer] size 420 trochanteric fixation nail with a 105 mm helical blade and a 44 and a 50 mm distal locking screws. ANESTHESIA: General. SURGEON: Braxton Ny MD SPANISH PROFESSOR: ZOYA Flores, who was present for the aquino portions of the case and her assistance was necessary for successful completion of the case. BLOOD LOSS: Minimal. DESCRIPTION OF PROCEDURE: The patient was brought to the operative suite and placed in supine position. After successful administration of general anesthesia, patient was placed on the OSI table in the usual position for right hip. The right intertrochanteric fracture was reduced under fluoroscopy and then the right hip and leg were prepped and draped in usual sterile fashion. A longitudinal incision was made proximal to the tip of the greater trochanter, dissected sharply through the skin. A guide pin was placed in the center of the femoral canal on AP and lateral images. The canal was serially reamed to a size 13. It was measured to 420. A 420 mm nail was then driven into place. Once it was verified to be in good position, a stab incision laterally using the proximal guide. A guide pin was placed in center of the femoral head on AP and lateral images. After verifying this, it was measured to 100 mm. It was reamed. The track of the helical blade was reamed and then the helical blade was driven into place and locked proximally, released a half turn to allow for compression and then the proximal guide was released as well as traction. Attention was then directed to the distal locking screws using the perfect circles technique through stab incisions. These were drilled, measured to 44 and 50 mm and then the proper length screws were driven into place. Excellent placement of screws and hardware was obtained on AP and lateral images. Excellent reduction of the hip and placement of the hardware proximally was obtained on AP and lateral images. The wounds were copiously irrigated. The skin edges approximated with 2-0 Vicryl. Skin was closed with skin halle and a sterile dressing applied. The patient tolerated the procedure well without complication. At the end of the procedure, all counts were correct x2. The patient was transferred to recovery room in stable condition. cc: Braxton Ny MD [facility]
[2019-10-20] MEDS: KEFZOL 1 GM/D5W 1 GM/50 ML IVPB IV SCH ×2 (00:26→08:14)
[2019-10-20] MEDS: TYLENOL PO SCH ×3 (02:43→19:09)
[2019-10-20] MEDS: OXY IR PO PRN ×5 (02:44→21:29)
[2019-10-20 07:16] LABS: HEMATOCRIT 29.9 % (42.0-52.0); HEMOGLOBIN 9.3 g/dL (14.0-18.0); IMM GRAN# 0.03 X1000 (0.0-0.04); IMM GRAN% 0.2 % (0.0-0.5); LYMPH# 0.38 X1000 (1.2-3.4); LYMPH% 2.5 % (20.5-51.1); MCHC 31.1 g/dL (33-37); MCV 93.1 FL (81-99); MONO# 0.75 X1000 (0.11-0.59); MPV 10.6 FL (7.4-10.4); NEUT# 13.86 X1000 (1.4-6.5); NEUT% 92.3 % (42.2-75.2); PLT 252 X1000 (130-400); RBC 3.21 XMIL (4.7-6.1); RDW 17.3 % (11.5-14.5); WBC 15.02 X1000 (4.8-10.8)
[2019-10-20] MEDS: PRILOSEC PO SCH (08:13)
[2019-10-20 08:46] LABS: ALBUMIN 3.4 g/dL (3.5-5.0); CALCIUM 8.5 mg/dL (8.8-10.2); CREATININE 1.8 mg/dL (0.7-1.2); PHOSPHORUS 5.2 mg/dL (2.7-4.5); POTASSIUM 3.8 mmol/L (3.5-5.1)
[2019-10-20] MEDS: CARDIZEM CD PO SCH (09:46)
[2019-10-20] MEDS: LASIX PO SCH (09:46)
[2019-10-20] MEDS: FERROUS SULFATE PO SCH (09:46)
[2019-10-20] MEDS: IMDUR PO SCH ×2 (09:46→21:30)
[2019-10-20] MEDS: COZAAR PO SCH ×2 (09:47→21:30)
[2019-10-20] MEDS: ZOLOFT PO SCH (09:47)
[2019-10-20] MEDS: PERIDEX MT SCH ×2 (09:47→21:30)
[2019-10-20] MEDS: TOPROL XL PO SCH (09:47)
[2019-10-20] MEDS: ELIQUIS PO SCH ×2 (09:47→21:29)
--- NOTE | 2019-10-20 10:52 | PROGRESS NOTE ---
DATE: 10/20/2019 SUBJECTIVE: The patient reports feeling okay. Apparently, he has tolerated surgery very well. Denies any fever or chills. Pain in the surgical area is under control. OBJECTIVE: Vital Signs: Temperature 97.7 degrees, heart rate 65, respiratory rate 19, blood pressure 109/66, O2 saturation 99% on 2 L nasal cannula. General: This is a chronically ill- appearing, 89-year-old, male, lying in bed in no acute distress. Cardiovascular: S1 and S2 heard. No murmurs, gallops, or rubs. Regular rate and rhythm. Respiratory: Minimal crackles noted in both pulmonary bases, but the patient is not using any accessory muscles or having work of breathing. Abdomen: Soft. Nontender to palpation. Bowel sounds present. No organomegaly. Extremities: No clubbing, cyanosis, or edema. Peripheral pulses present in both legs. Neurologic: The patient is alert and oriented x3. Moves all 4 extremities. LABORATORY DATA: Pending at the time of dictation. ASSESSMENT AND PLAN: 1. Right femoral neck fracture, status post right long trochanteric fixation nail placement. Orthopedics is following this patient. Will follow recommendations. Pain is under control. 2. History of untreated bronchioloalveolar carcinoma. The patient is followed by Dr. Galaviz in the hospital. At this point, the only recommendation is to continue watching. 3. History of atrial fibrillation, on Eliquis. That medication has been held for surgery. I think we can restart it today. 4. Chronic kidney disease stage 3. Creatinine is at baseline. Will continue to monitor. 5. History of congestive heart failure. The patient is not in any exacerbation at this point. Will continue to monitor. 6. History of coronary artery disease with ischemic cardiomyopathy. Aware. At this point, the patient is not complaining of any chest pain. Will continue to monitor. 7. Disposition. Will continue to monitor this patient closely. cc: Handy Babcock MD
--- NOTE | 2019-10-20 16:43 | ORTHOPAEDICS PROGRESS NOTE ---
DATE: 10/20/2019 SUBJECTIVE: Chandana Leong is an 89-year-old male who is postoperative day 1 from a right TFN. He has no complaints. Is resting comfortably. OBJECTIVE: He is a well-developed, well-nourished male. He is alert cooperative exam. His hemoglobin is 9.3 cm. His hematocrit is 29.8. His leg is neurovascularly intact. His dressing is clean, dry, intact. ASSESSMENT: Stable right leg after trochanteric fixation nail placement. PLAN: We will begin working him with physical therapy today. He will likely go to rehab later in the week. cc: Braxton Ny MD
[2019-10-20] MEDS: NS 1,000 ML IV SCH (18:14)
[2019-10-20] MEDS: ZOCOR PO SCH (21:30)
[2019-10-20] MEDS: COLACE PO SCH (21:30)
[2019-10-21] MEDS: TYLENOL PO SCH ×4 (03:49→20:58)
[2019-10-21] MEDS: OXY IR PO PRN (03:49)
[2019-10-21] MEDS: NS 1,000 ML IV SCH ×3 (03:50→22:52)
--- NOTE | 2019-10-21 07:50 | Diag Imaging Result Doc PS360 ---
CHEST-PORTABLE - 10/21/2019 INDICATION: pulmonary edema COMPARISON: 10/18/2019 FINDINGS: There is worsening opacification with volume loss at the right middle lobe, which may represent at least some degree of collapse. Stable severe opacification at the right apex. Stable adjacent nodular density. There is overall decrease in the background pulmonary edema. No large pleural effusions. Stable mild cardiomegaly. IMPRESSION: Mixed changes from prior. Electronically signed by Lucas Us 10/21/2019 7:47 AM
[2019-10-21 08:06] LABS: BASO# 0.01 X1000 (0.0-0.2); BASO% 0.1 % (0.0-0.8); EOS# 0.19 X1000 (0.0-0.7); EOS% 1.4 % (0.0-10.0); HEMOGLOBIN 8.3 g/dL (14.0-18.0); IMM GRAN# 0.02 X1000 (0.0-0.04); IMM GRAN% 0.1 % (0.0-0.5); LYMPH# 0.43 X1000 (1.2-3.4); LYMPH% 3.2 % (20.5-51.1); MCH 28.2 PG (27-31); MCHC 30.7 g/dL (33-37); MCV 91.8 FL (81-99); MONO# 1.11 X1000 (0.11-0.59); MONO% 8.3 % (1.7-9.3); MPV 11.1 FL (7.4-10.4); NEUT# 11.69 X1000 (1.4-6.5); NEUT% 86.9 % (42.2-75.2); PLT 260 X1000 (130-400); RBC 2.94 XMIL (4.7-6.1); RDW 17.7 % (11.5-14.5); WBC 13.45 X1000 (4.8-10.8)
[2019-10-21] MEDS: FERROUS SULFATE PO SCH (08:25)
[2019-10-21] MEDS: CARDIZEM CD PO SCH (08:25)
[2019-10-21] MEDS: IMDUR PO SCH ×2 (08:25→20:59)
[2019-10-21] MEDS: COZAAR PO SCH ×2 (08:26→20:59)
[2019-10-21] MEDS: PERIDEX MT SCH ×2 (08:26→20:56)
[2019-10-21] MEDS: TOPROL XL PO SCH (08:26)
[2019-10-21] MEDS: ZOLOFT PO SCH (08:26)
[2019-10-21] MEDS: ELIQUIS PO SCH ×2 (08:26→20:56)
[2019-10-21] MEDS: LASIX PO SCH (08:26)
[2019-10-21] MEDS: PRILOSEC PO SCH (08:26)
[2019-10-21 08:37] LABS: SEGS 92 % (42-75)
[2019-10-21 08:46] LABS: ALBUMIN 3.2 g/dL (3.5-5.0); CALCIUM 8.3 mg/dL (8.8-10.2); CREATININE 2.5 mg/dL (0.7-1.2); POTASSIUM 3.7 mmol/L (3.5-5.1)
--- NOTE | 2019-10-21 11:08 | PROGRESS NOTE ---
DATE: 10/21/2019 SUBJECTIVE: Patient reports feeling fine. Pain is under control. OBJECTIVE: Vital Signs: Temperature 98.2 degrees, heart rate 60, respiratory rate 20, blood pressure 125/61, O2 saturation 100% on room air. General: This is an 89-year-old, male, lying in bed, in no acute distress. Cardiovascular: S1, S2 heard. No murmurs, gallops, or rubs. Regular rate and rhythm. Respiratory: Clear bilaterally to auscultation. No work of breathing or using accessory muscles. Abdomen: Soft, nontender to palpation. Bowel sounds present. No organomegaly. Extremities: No clubbing, cyanosis, or edema. Peripheral pulses present in both legs. Dressing covering the right hip. Neurological: Patient alert and oriented x3. Moves 4 extremities. LABORATORY DATA: White cell count 13.45, hemoglobin 8.3, hematocrit 27.0, platelets 260,000 with BMP remarkable for creatinine 2.5, phosphorus 5.0. ASSESSMENT AND PLAN: 1. Right femoral neck fracture status post right long trochanteric fixation nail placement. Orthopedics following this patient. We will follow recommendations. The patient is clinically doing okay. Pain in that area is under control. 2. History of untreated bronchioloalveolar carcinoma. The patient has been seen by Dr. Galaviz in the office. They are not planning to do anything at this point. 3. History of atrial fibrillation. Patient is on Eliquis, the patient has been restarted on this medication. 4. Chronic kidney disease stage III. Creatinine started getting a little bit worse today. We will continue to monitor. 5. History of congestive heart failure. Patient is not in any exacerbation. He has received just 1 dose of Lasix. We will continue to monitor. 6. History of coronary artery disease with ischemic cardiomyopathy. Aware. At this point, the patient is not complaining of any chest pain. We will continue to monitor. 7. Disposition. Following leads from Orthopedics. We will release this patient once we have a bed available for him at a rehab facility and cleared by Orthopedics. cc: Handy Babcock MD
[2019-10-21] MEDS: COLACE PO SCH (20:55)
[2019-10-21] MEDS: ZOCOR PO SCH (20:55)
[2019-10-22] MEDS: AMBIEN PO SCH ×2 (01:58→21:42)
[2019-10-22] MEDS: NS 1,000 ML IV SCH ×2 (02:26→19:56)
[2019-10-22] MEDS: TYLENOL PO SCH ×3 (06:25→21:43)
[2019-10-22] MEDS: PRILOSEC PO SCH (06:25)
[2019-10-22 06:48] LABS: BASO# 0.01 X1000 (0.0-0.2); BASO% 0.1 % (0.0-0.8); EOS# 0.49 X1000 (0.0-0.7); EOS% 5.9 % (0.0-10.0); HEMATOCRIT 27.1 % (42.0-52.0); HEMOGLOBIN 8.4 g/dL (14.0-18.0); IMM GRAN# 0.02 X1000 (0.0-0.04); IMM GRAN% 0.2 % (0.0-0.5); LYMPH# 0.49 X1000 (1.2-3.4); LYMPH% 5.9 % (20.5-51.1); MCH 28.2 PG (27-31); MCV 90.9 FL (81-99); MONO# 0.91 X1000 (0.11-0.59); MONO% 10.9 % (1.7-9.3); MPV 10.8 FL (7.4-10.4); NEUT# 6.44 X1000 (1.4-6.5); PLT 234 X1000 (130-400); RBC 2.98 XMIL (4.7-6.1); RDW 17.6 % (11.5-14.5); WBC 8.36 X1000 (4.8-10.8)
[2019-10-22 06:57] LABS: ALBUMIN 3.1 g/dL (3.5-5.0); CALCIUM 8.4 mg/dL (8.8-10.2); CREATININE 2.1 mg/dL (0.7-1.2); PHOSPHORUS 3.7 mg/dL (2.7-4.5); POTASSIUM 3.8 mmol/L (3.5-5.1)
--- NOTE | 2019-10-22 08:20 | PROGRESS NOTE ---
DATE: 10/22/2019 SUBJECTIVE: Patient reports feeling fine. Denies any fever or chills. OBJECTIVE: Vital Signs: Temperature 98.3 degrees, heart rate 75, respiratory rate 20, blood pressure 136/77, O2 saturation 100% 2 L nasal cannula. General: This is a chronically ill- looking, 89-year-old, male, lying in bed, in no acute distress. Cardiovascular: S1, S2 heard. No murmurs, gallops, or rubs. Regular rate and rhythm. Respiratory: Clear bilaterally to auscultation. No work of breathing. Not using accessory muscles. Abdomen: Soft, nontender to palpation. Bowel sounds present. No organomegaly. Extremities: No clubbing, cyanosis, or edema. Peripheral pulses present in both legs. There is a dressing covering the right hip. Neurological: Patient is alert, awake, moves 4 extremities. LABORATORY DATA: White cell count 8.36, hemoglobin 8.4, hematocrit 27.1, platelets 434,000 with creatinine 2.1 today. ASSESSMENT AND PLAN: 1. Right femoral neck fracture status post right long trochanteric fixation and nail placement. Patient reports feeling fine. His pain is under control. Orthopedics following this patient. We will follow recommendations. 2. History of untreated bronchial alveolar carcinoma. The patient has not received any treatment. Dr. Galaviz has been following him in the office. That condition is stable. 3. History of atrial fibrillation. Patient continues to be on Eliquis. 4. Chronic kidney disease stage 3. Creatinine has been up and down. We have checked the creatinine for last 3 years and apparently, the baseline creatinine is from 1.5 to 1.9, has been getting a little worse yesterday so we decided to stop the Lasix for now and change lisinopril for something different like amlodipine 5 mg p.o. twice daily. Creatinine is 2.1 today. We will continue to monitor BMP daily. 5. History of congestive heart failure. Patient is not in an exacerbation. Because of worsening renal failure we decide to stop furosemide while he is here in the hospital. We will continue to monitor. 6. History of coronary artery disease with ischemic cardiomyopathy, aware. Patient is not complaining of any chest pain. Breathing okay. We will continue with home medications. 7. Disposition. Following lead from Orthopedics, I think if this patient continues to be fine on Thursday he should be released to rehab facility. cc: Handy Babcock MD
[2019-10-22] MEDS: ZOLOFT PO SCH (09:43)
[2019-10-22] MEDS: FERROUS SULFATE PO SCH (09:43)
[2019-10-22] MEDS: ELIQUIS PO SCH ×2 (09:43→21:43)
[2019-10-22] MEDS: TOPROL XL PO SCH (09:43)
[2019-10-22] MEDS: CARDIZEM CD PO SCH (09:43)
[2019-10-22] MEDS: IMDUR PO SCH ×2 (09:43→21:44)
[2019-10-22] MEDS: PERIDEX MT SCH ×2 (09:44→21:42)
[2019-10-22] MEDS: NORVASC PO SCH ×2 (09:46→21:44)
[2019-10-22] MEDS: OXY IR PO PRN (16:22)
[2019-10-22] MEDS: ZOCOR PO SCH (21:42)
[2019-10-22] MEDS: COLACE PO SCH (21:43)
[2019-10-23] MEDS: PRILOSEC PO SCH (05:01)
[2019-10-23] MEDS: OXY IR PO PRN ×2 (05:01→18:49)
[2019-10-23 08:07] LABS: BASO# 0.01 X1000 (0.0-0.2); BASO% 0.1 % (0.0-0.8); EOS# 0.45 X1000 (0.0-0.7); EOS% 6.3 % (0.0-10.0); HEMATOCRIT 24.2 % (42.0-52.0); HEMOGLOBIN 7.5 g/dL (14.0-18.0); LYMPH# 0.39 X1000 (1.2-3.4); LYMPH% 5.5 % (20.5-51.1); MCH 28.4 PG (27-31); MCV 91.7 FL (81-99); MONO# 0.99 X1000 (0.11-0.59); MPV 10.9 FL (7.4-10.4); NEUT# 5.25 X1000 (1.4-6.5); NEUT% 74.1 % (42.2-75.2); PLT 237 X1000 (130-400); RBC 2.64 XMIL (4.7-6.1); RDW 17.5 % (11.5-14.5); WBC 7.09 X1000 (4.8-10.8)
[2019-10-23 08:24] LABS: ALBUMIN 2.8 g/dL (3.5-5.0); CALCIUM 7.9 mg/dL (8.8-10.2); CREATININE 1.5 mg/dL (0.7-1.2); PHOSPHORUS 2.4 mg/dL (2.7-4.5); POTASSIUM 3.5 mmol/L (3.5-5.1)
--- NOTE | 2019-10-23 09:17 | PROGRESS NOTE ---
DATE: 10/23/2019 SUBJECTIVE: The patient reports feeling fine. He reports that the pain is under control. No complaints at this time. OBJECTIVE: Vital Signs: Temperature 98.8 degrees, heart rate 71 respiratory rate 18, blood pressure 138/74, O2 saturation 95% on 2 L nasal cannula. General: This is a chronically ill- looking, 89-year-old, male, lying in bed in no acute distress. Cardiovascular: S1, S2 heard. No murmurs, gallops, or rubs. Regular rate and rhythm. Respiratory: Clear bilaterally to auscultation. No work of breathing or using accessory muscles. Abdomen: Soft, nontender to palpation. Bowel sounds present. No organomegaly. Extremities: No clubbing, cyanosis, or edema. Peripheral pulses present in both legs. There is a dressing covering the right hip. Neurological: The patient is alert, awake. Moves all 4 extremities. LABORATORY DATA: White cell count 7.09, hemoglobin 7.5, hematocrit 24.2, with platelets 237,000. BMP reveals creatinine 1.5 and phosphorus of 2.4. ASSESSMENT AND PLAN: 1. Right femoral neck fracture, status post right long trochanteric fixation and nail placement. The patient reports feeling okay. Pain is under control. Orthopedics is following this patient. Will follow recommendations. 2. History of untreated bronchioalveolar carcinoma. Aware. 3. History of atrial fibrillation. The patient continues to be on Eliquis. 4. Chronic kidney disease stage 3. Creatinine today is 1.5, so it is back to his baseline. Will continue to monitor. 5. History of congestive heart failure. The patient is not in exacerbation. Will continue home medications now. Will restart Lasix upon discharge. 6. History of coronary artery disease with ischemic cardiomyopathy. Aware. There is no chest pain noted. Will continue to monitor. 7. Disposition. I think if the patient is cleared by Orthopedics tomorrow, he can go to rehab facility if a bed is available. cc: Handy Babcock MD
[2019-10-23] MEDS: TYLENOL PO SCH ×3 (09:44→21:38)
[2019-10-23] MEDS: ELIQUIS PO SCH ×2 (10:00→21:37)
[2019-10-23] MEDS: NORVASC PO SCH ×2 (10:00→21:38)
[2019-10-23] MEDS: ZOLOFT PO SCH (10:00)
[2019-10-23] MEDS: IMDUR PO SCH ×2 (10:00→21:38)
[2019-10-23] MEDS: FERROUS SULFATE PO SCH (10:00)
[2019-10-23] MEDS: CARDIZEM CD PO SCH (10:00)
[2019-10-23] MEDS: TOPROL XL PO SCH (10:00)
[2019-10-23] MEDS: PERIDEX MT SCH ×2 (10:01→21:38)
[2019-10-23] MEDS: AMBIEN PO SCH (21:13)
[2019-10-23] MEDS: COLACE PO SCH (21:37)
[2019-10-23] MEDS: ZOCOR PO SCH (21:37)
[2019-10-24] MEDS: TYLENOL PO SCH ×3 (03:44→23:05)
[2019-10-24] MEDS: PRILOSEC PO SCH (06:03)
[2019-10-24 08:23] LABS: AGAP 10; ALBUMIN 2.7 g/dL (3.5-5.0); BUN 21 mg/dL (8-22); CALCIUM 8.3 mg/dL (8.8-10.2); CHLORIDE 110 mmol/L (98-107); COSMO 296; CREATININE 1.2 mg/dL (0.7-1.2); ESTIMATED GFR > 60; GLUCOSE 106 mg/dL (70-104); PHOSPHORUS 2.2 mg/dL (2.7-4.5); POTASSIUM 3.5 mmol/L (3.5-5.1); SODIUM 147 mmol/L (136-145); TCO2 27 mmol/L (25-35)
[2019-10-24 08:27] LABS: BASO# 0.02 X1000 (0.0-0.2); BASO% 0.3 % (0.0-0.8); EOS# 0.44 X1000 (0.0-0.7); EOS% 5.8 % (0.0-10.0); HEMATOCRIT 25.3 % (42.0-52.0); HEMOGLOBIN 7.8 g/dL (14.0-18.0); LYMPH# 0.49 X1000 (1.2-3.4); LYMPH% 6.4 % (20.5-51.1); MCH 28.5 PG (27-31); MCHC 30.8 g/dL (33-37); MCV 92.3 FL (81-99); MONO# 1.14 X1000 (0.11-0.59); MONO% 14.9 % (1.7-9.3); MPV 11.1 FL (7.4-10.4); NEUT# 5.54 X1000 (1.4-6.5); NEUT% 72.6 % (42.2-75.2); PLT 241 X1000 (130-400); RBC 2.74 XMIL (4.7-6.1); RDW 17.5 % (11.5-14.5); WBC 7.63 X1000 (4.8-10.8)
[2019-10-24] MEDS ORDERED: SODIUM PHOSPHATE 35 MMOL in NS 250 ML IV ONE (08:47)
[2019-10-24] MEDS: OXY IR PO PRN ×2 (09:41→14:43)
--- NOTE | 2019-10-24 10:12 | PROGRESS NOTE ---
DATE: 10/24/2019 SUBJECTIVE: The patient reports feeling fine. No complaints at this time. OBJECTIVE: Vital Signs: Temperature 98.9 degrees, heart rate 75, respiratory rate 16, blood pressure 157/79, O2 saturation 100% on 3 L nasal cannula. General: This is a chronically ill- looking, 89-year-old, male, lying in bed in no acute distress. Cardiovascular: S1, S2 heard. No murmurs, gallops, or rubs. Regular rate and rhythm. Respiratory: Clear bilaterally to auscultation. No work of breathing or using accessory muscles. Abdomen: Soft, nontender to palpation. Bowel sounds present. No organomegaly. Extremities: No clubbing, cyanosis, or edema. Peripheral pulses present in both legs. Dressing covering the right hip. Neurological: The patient is alert and oriented x3. Moves all 4 extremities. LABORATORY DATA: White cell count 7.63, hemoglobin 7.8, hematocrit 25.3, platelets 241,000. BMP is okay, including creatinine 1.2. ASSESSMENT AND PLAN: 1. Right femoral neck fracture, status post right long trochanteric fixation and nail placement. Patient clinically doing okay. Orthopedics is following this patient. 2. History of untreated bronchoalveolar carcinoma. Aware. No need for any further treatment at this time. 3. Atrial fibrillation. Now, the patient is in sinus rhythm. Will continue with Eliquis. 4. Chronic kidney disease stage 3. Actually, his kidney function is completely back to normal today. 5. History of congestive heart failure. That condition is stable. The patient is not in any exacerbation. Will continue to monitor this patient. 6. History of coronary artery disease with ischemic cardiomyopathy. Aware. No chest pain noted. Will continue to monitor. 7. Disposition. At this point, the patient is stable and ready to go to rehab once we have a bed for him. cc: Handy Babcock MD
[2019-10-24] MEDS: CARDIZEM CD PO SCH (11:04)
[2019-10-24] MEDS: PERIDEX MT SCH ×2 (11:04→23:06)
[2019-10-24] MEDS: IMDUR PO SCH ×2 (11:05→23:06)
[2019-10-24] MEDS: NORVASC PO SCH ×2 (11:05→23:05)
[2019-10-24] MEDS: FERROUS SULFATE PO SCH (11:05)
[2019-10-24] MEDS: TOPROL XL PO SCH (11:05)
[2019-10-24] MEDS: ELIQUIS PO SCH ×2 (11:05→23:05)
[2019-10-24] MEDS: ZOLOFT PO SCH (11:05)
[2019-10-24] MEDS: AMBIEN PO SCH (23:05)
[2019-10-24] MEDS: ZOCOR PO SCH (23:05)
[2019-10-24] MEDS: COLACE PO SCH (23:05)
[2019-10-24] MEDS: NS 1,000 ML IV SCH (23:06)
[2019-10-25] MEDS: TYLENOL PO SCH (06:07)
[2019-10-25] MEDS: OXY IR PO PRN ×2 (06:49→13:43)
[2019-10-25] MEDS: PRILOSEC PO SCH (06:49)
[2019-10-25] MEDS: NS 1,000 ML IV SCH (06:53)
--- NOTE | 2019-10-25 09:48 | DISCHARGE SUMMARY ---
ADMISSION DATE: 10/19/2019 DISCHARGE DATE: 10/25/2019 CONSULTATIONS: 1. Dr. Ny with Orthopedics. 2. Dr. Galaviz with Hematology. 3. Dr. Nathan Fernández. PERTINENT PROCEDURES: 1. Hip/pelvis x-ray. Right intertrochanteric fracture. 2. Head CT. Stable brain atrophy. No acute intracranial pathology. 3. Echocardiogram. Difficult study. Global EF estimated at 40 to 45 percent with enlargement of the right ventricle, pulmonary pressure of 69/20, moderate tricuspid regurgitation, mild to moderate mitral regurgitation, thickening of the aortic valve without stenosis. 4. A right trochanteric fixation nail placement by Dr. Ny. DISCHARGE DIAGNOSES: 1. Right leg trochanteric fixation nail placement performed by Dr. Ny. The patient is clinically doing well. He has been working with Physical Therapy and will be discharged to rehab. 2. History of untreated bronchoalveolar carcinoma, followed by Dr. Galaviz. Aware. 3. Atrial fibrillation. The patient is in sinus rhythm. Continue with Eliquis. 4. Chronic kidney disease stage III. Kidney function is back to normal. 5. History of congestive heart failure, stable, not in exacerbation. 6. History of coronary artery disease with ischemic cardiomyopathy. Aware. HOSPITAL COURSE: Briefly, Mr. Leong is a 89-year-old gentleman with a known past medical history of untreated bronchoalveolar carcinoma followed by Dr. Galaviz, chronic atrial fibrillation on Eliquis, chronic kidney disease stage III, COPD on home O2 with chronic hypoxemic respiratory failure, coronary artery disease with ischemic cardiomyopathy, came to the ED after getting ready for bed. He was sitting on his bed clothes, lost his balance and fell, had immediate right hip pain. Workup in the ED revealed a right hip fracture. He underwent cardio clearance for surgery. He was followed by Dr. Galaviz as well. On 10/19/2019, he did undergo a right leg trochanteric fixation nail placement with Dr. Ny. He has been working with Physical Therapy and will be discharged to rehab today. VITAL SIGNS: Temperature is 98.7 degrees, heart rate 65, respirations 20, blood pressure 123/65, O2 is 100% on room air. DISCHARGE DIET: Healthy heart. DISCHARGE MEDICATIONS: 1. Simvastatin 20 mg p.o. at bedtime. 2. Eliquis 2.5 mg p.o. b.i.d. 3. Isosorbide mononitrate ER 30 mg p.o. b.i.d. 4. Protonix 40 mg p.o. daily. 5. Zoloft 50 mg p.o. daily. 6. Toprol-XL 25 mg p.o. daily. 7. Ambien 5 mg p.o. at bedtime. 8. OxyIR 5 mg p.o. q.3 hours p.r.n. 9. Cardizem CD 180 mg p.o. daily. 10. Cozaar 50 mg p.o. b.i.d. 11. Icar C 1 tablet p.o. daily. 12. Lasix 40 mg p.o. daily. 13. Milk of magnesia 30 mL p.o. daily p.r.n. 14. Norvasc 5 mg p.o. b.i.d. FOLLOWUP: Mr. Leong will be discharged to rehab where he will continue with his physical therapy. He is to follow up with Orthopedics in 2 weeks as well as his primary care provider, Dr. Frederick Sandra. He can return to the ED or call 911 for any worsening of symptoms. Dictated by ZOYA Morales for Handy Babcock MD cc: MD Braxton Marquez MD Micah A. Howard, MD
--- NOTE | 2019-10-25 09:51 | ORTHOPAEDICS PROGRESS NOTE ---
DATE: 10/25/2019 SUBJECTIVE: Mr. Chandana Leong is an 89-year-old male who is postoperative day 6 from a right intertrochanteric hip fracture trochanteric fixation nail placement. He has no complaints. Continues to have some pain with this hip. OBJECTIVE: He is a well-developed, well-nourished male. He is alert, oriented, and cooperative with exam. Vital signs are stable. He is afebrile. LABORATORY DATA: His hemoglobin is 12.7. His hematocrit is 39.1. ASSESSMENT: Stable right trochanteric nail fixation. PLAN: He plans to be transferred to rehab today. He can have his halle removed in 2 days. I will need to see him back once he is discharged from rehab in my office. cc: Braxton Ny MD
[2019-10-25 12:38] VITALS: BP 145/77
[2019-10-25] MEDS: ELIQUIS PO SCH (13:41)
[2019-10-25] MEDS: IMDUR PO SCH (13:41)
[2019-10-25] MEDS: CARDIZEM CD PO SCH (13:41)
[2019-10-25] MEDS: FERROUS SULFATE PO SCH (13:41)
[2019-10-25] MEDS: NORVASC PO SCH (13:41)
[2019-10-25] MEDS: PERIDEX MT SCH (13:42)
[2019-10-25] MEDS: ZOLOFT PO SCH (13:42)
[2019-10-25] MEDS: TOPROL XL PO SCH (13:42)
== END 2019-10-25 15:18 | DRG 481 ==
LOC: SUPCPDRO → ED 21:50 → 4N 10-19 01:55 → SUATTDRO 10-19 01:55
PROVIDERS: ATTEND Internal Medicine

== ENCOUNTER 2019-11-27 10:55 | Inpatient (IN) ==
[2019-11-27] MEDS ORDERED: NS 1,000 ML IV ONE ×2 (11:08)
[2019-11-27] MEDS ORDERED: ZOSYN 4.5 GM in NS 100 ML IV ONE (11:09)
[2019-11-27] MEDS ORDERED: TYLENOL PO ONE (11:09)
--- NOTE | 2019-11-27 12:07 | Diag Imaging Result Doc PS360 ---
CT HEAD/C-SPINE W/O CONTRAST - 11/27/2019 INDICATION: head injury/pain COMPARISON: 10/18/2019 FINDINGS: Head CT: Stable moderate cerebral atrophy. No intracranial mass. No acute hemorrhage. Stable mild cerebral white matter chronic microvascular ischemia. Stable osteoma of the frontal sinuses. No skull fracture. The sinuses are clear. Cervical spine: Alignment is anatomic. Stable advanced multilevel degenerative disc disease. Stable advanced multilevel facet degeneration. No fracture or subluxation. IMPRESSION: No acute injury. Advanced chronic changes. This exam was performed using automated exposure control, adjustment of mA or kV according to patient size, and/or use of iterative reconstruction technique Electronically signed by Lucas Us 11/27/2019 12:05 PM
--- NOTE | 2019-11-27 12:12 | Diag Imaging Result Doc PS360 ---
CHEST-PORTABLE - 11/27/2019 INDICATION: freq falls, lung ca COMPARISON: 10/21/2019 FINDINGS: Stable dense opacification of the right lung apex. There is severe cardiomegaly. There is faint diffuse interstitial infiltrate bilaterally most compatible with pulmonary edema. No large pleural effusion. IMPRESSION: Cardiomegaly. Probable pulmonary edema. Electronically signed by Lucas Us 11/27/2019 12:10 PM
[2019-11-27 12:47] LABS: BASO# 0.02 X1000 (0.0-0.2); BASO% 0.1 % (0.0-0.8); EOS# 0.01 X1000 (0.0-0.7); HEMATOCRIT 38.9 % (42.0-52.0); HEMOGLOBIN 12.2 g/dL (14.0-18.0); IMM GRAN# 0.14 X1000 (0.0-0.04); IMM GRAN% 0.5 % (0.0-0.5); LYMPH# 0.19 X1000 (1.2-3.4); LYMPH% 0.7 % (20.5-51.1); MCH 28.3 PG (27-31); MCHC 31.4 g/dL (33-37); MCV 90.3 FL (81-99); MONO# 0.91 X1000 (0.11-0.59); MONO% 3.4 % (1.7-9.3); MPV 12.1 FL (7.4-10.4); NEUT# 25.87 X1000 (1.4-6.5); NEUT% 95.3 % (42.2-75.2); PLT 280 X1000 (130-400); RBC 4.31 XMIL (4.7-6.1); RDW 18.1 % (11.5-14.5); WBC 27.14 X1000 (4.8-10.8)
[2019-11-27 13:01] LABS: INR 1.53; PROTIME 18.7 Seconds (11.0-16.0)
[2019-11-27] MEDS ORDERED: VANCOMYCIN 1 GM/NS 1 GM/250 ML IVPB IV ONE (13:17)
[2019-11-27 13:41] LABS: URINE SOURCE CATH
[2019-11-27 13:46] LABS: BILIRUBIN URINE NEGATIVE (NEGATIVE); BLOOD URINE SMALL (NEGATIVE); COLOR YELLOW; GLUCOSE URINE NEGATIVE (NEGATIVE); KETONE URINE TRACE mg/dL (NEGATIVE); LEUKOCYTES URINE NEGATIVE (NEGATIVE); NITRITE URINE NEGATIVE (NEGATIVE); PH URINE 6.5; PROTEIN URINE 100 mg/dL (NEGATIVE); SP GRAVITY URINE 1.025; TURBIDITY URINE CLEAR (CLEAR); UROBILINOGEN URINE 4 mg/dL (NORMAL)
[2019-11-27 13:54] LABS: UR EPITHELIAL CELLS <10 /HPF (<10); URINE BACTERIA NEGATIVE /HPF; URINE RBC <10 /HPF (<10); URINE WBC <10 /HPF (<10)
[2019-11-27 14:30] LABS: URINE CASTS NONE SEEN; URINE CRYSTALS NONE SEEN; URINE YEAST NONE SEEN
[2019-11-27 15:23] LABS: AGAP 12; ALBUMIN 3.1 g/dL (3.5-5.0); ALKALINE PHOSPHATASE 119 U/L (32-122); BUN 29 mg/dL (8-22); CALCIUM 8.2 mg/dL (8.8-10.2); CHLORIDE 108 mmol/L (98-107); CK PROFILE 31 U/L (24-204); COSMO 299; CREATININE 1.2 mg/dL (0.7-1.2); ESTIMATED GFR > 60; GLUCOSE 139 mg/dL (70-104); GOT 12 U/L (10-34); GPT 14 U/L (10-44); POTASSIUM 3.6 mmol/L (3.5-5.1); SODIUM 146 mmol/L (136-145); TCO2 26 mmol/L (25-35); TOTAL BILIRUBIN 1.07 mg/dL (0.20-1.00); TOTAL PROTEIN 6.3 g/dL (6.3-8.3)
--- NOTE | 2019-11-27 15:40 | PROVIDER DOCUMENTATION ---
This chart was entered by Janey Coley Scribe, acting as scribe for El Bryan MD. HPI-General Adult - General Stated Complaint: FALL Time Seen by Provider: 11/27/19 11:01 Source: patient, EMS Allergies/Adverse Reactions: Patient Allergies Allergy/AdvReac Type Severity Reaction Status Date / Time No Known Allergies Allergy Verified 10/18/19 23:36 Home Medications: Home Medication List Medication Instructions Recorded Confirmed Last Taken Type Apixaban [Eliquis] 2.5 mg PO BID 10/08/17 10/18/19 07/16/19 History Pantoprazole [Protonix] 40 mg PO DAILY 10/08/17 10/18/19 07/16/19 History Losartan [Cozaar] 50 mg PO BID tablet 04/27/18 10/18/19 07/16/19 Rx Isosorbide Mononitrate [Isosorbide 30 mg PO BID 08/20/18 10/18/19 07/16/19 History Mononitrate ER] Diltiazem C.d. [Cardizem Cd] 180 mg PO DAILY #30 cap 10/24/18 10/18/19 07/16/19 Rx Furosemide [Lasix] 40 mg PO DAILY #30 tab 10/24/18 10/18/19 07/16/19 Rx Metoprolol Succinate E.r. [Toprol 25 mg PO DAILY 09/27/19 10/18/19 Unknown History Xl] Simvastatin 20 mg PO QHS 09/27/19 10/18/19 Unknown History Sertraline HCl 50 mg PO DAILY 10/18/19 10/18/19 Unknown History Amlodipine [Norvasc] 5 mg PO BID #60 tab 10/25/19 Unknown Rx Iron Carbonyl/Ascorbic Acid 1 tab PO DAILY #90 tab 10/25/19 Unknown Rx [Icar-C] Magnesium Hydroxide [Milk of 30 ml PO DAILY PRN PRN udc 10/25/19 Unknown Rx Magnesia] Oxycodone I.r. [Oxy Ir] 5 mg PO Q3H PRN PRN #30 tab 10/25/19 Unknown Rx Zolpidem [Ambien] 5 mg PO QHS #30 10/25/19 Unknown Rx - History of Present Illness -Gen Adult Nature of Presenting Problems: 89 y/o male with h/o lung CA is brought to the ED via EMS after multiple falls at home with complaint of chest wall/rib pain after fall this am. EMS states multiple falls at home recently but the family did not want the patient brought in before due to risk of jung virus. Location of Pain/Injury: reports: chest Onset/Duration: reports: unsure Timing: reports: still present Modifying Factors: worse with: palpation Associated Symptoms: reports: fever/chills. denies: vomiting Review of Systems - Adult - REVIEW OF SYSTEMS - ADULT Constitutional: reports: see HPI, fever. denies: fatique, night sweats Eyes: reports: no symptoms reported Ears, Nose, Mouth & Throat: reports: no symptoms reported Cardiovascular: reports: chest pain (chest wall/rib). denies: palpitations, syncope Respiratory: reports: no symptoms reported Gastrointestinal: denies: diarrhea, nausea, vomiting Genitourinary: reports: no symptoms reported Musculoskeletal: reports: no symptoms reported Integumentary: reports: no symptoms reported Neurological: reports: no symptoms reported Psychiatric: reports: no symptoms reported Endocrine: reports: no symptoms reported Hematologic/Lymphatic: reports: no symptoms reported Allergic/Immunologic: reports: no symptoms reported All Other Systems: Reviewed and Negative Past History - Adult - PAST MEDICAL HISTORY-ADULT Review of Records: reports: Old Records Reviewed, Nursing Assessment Review, Medications Reviewed Major Childhood Illnesses: reports: denies history Cardiovascular: reports: A-Fib, CAD, CHF, HTN, hyperlipidemia, PAD Respiratory: reports: cancer Gastrointestinal: reports: denies history Obstetrical/Gynecological: reports: denies history Genitourinary: reports: denies history Musculoskeletal: reports: arthritis, other (gout) Neurological: reports: CVA Psychiatric: reports: denies history Endocrine/Immune: reports: denies history Other Conditions: reports: denies history - PRIOR SURGERIES/PROCEDURES Surgical/Procedure History: reports: cardiac stent, orthopedic (extremity) (right foot), other (Stents) - PRIOR HOSPITALIZATIONS Prior Hospitalizations: reports: none - IMMUNIZATION STATUS Childhood Immunizations: See Nurse Assessment Flu Vaccine: See Nurse Assessment - FAMILY HISTORY Family History: reviewed, not pertinent - SOCIAL HISTORY Smoking: other (former smoker) Physical Exam-General - PHYSICAL EXAM-ADULT Initial Vital Signs Reviewed: Yes - CONSTITUTIONAL General Appearance: alert, thin, other (mumbles incoherently) - HEAD, EARS, NOSE, MOUTH & THROAT HENMT: other (dry mucous membranes) - NECK Neck: full range of motion, supple - RESPIRATORY Respiratory: rhonchi (scattered all jacobs), other (tachypneic) - CARDIOVASCULAR Cardiovascular: irregularly irregular - GASTROINTESTINAL (ABDOMEN) Abdominal Exam: non tender, soft - MUSCULOSKELETAL Extremity: other (spooning fingernails, pale nail beds). negative: pulse deficit - SKIN Integumentary: other (poor skint turgor, pale nail beds,) - NEUROLOGIC Neurologic: other (confused which is normal for the patient per EMS) Progress - PLAN OF CARE/RESULTS Result Diagrams: 11/27/19 11:10 11/27/19 14:26 - REASSESSMENT Reassessment #1 Time Reassessed: 12:26 Status: improving (Given IVF and zosyn IV and po tylenol) - XRAY 1 XRAY Study: Chest (CHEST-PORTABLE - 11/27/2019 INDICATION: freq falls, lung ca COMPARISON: 10/21/2019 FINDINGS: Stable dense opacification of the right lung apex. There is severe cardiomegaly. There is faint diffuse interstitial infiltrate bilaterally most compatible with pulmonary edema. No large pleural effusion. IMPRESSION: Cardiomegaly. Probable pulmonary edema. Electronically signed by Lucas Us 11/27/2019 12:10 PM) Impression: Normal - CT/MRI 1 CT Study: Cervical Spine, Head Impression: Normal (CT HEAD/C-SPINE W/O CONTRAST - 11/27/2019 INDICATION: head injury/pain COMPARISON: 10/18/2019 FINDINGS: Head CT: Stable moderate cerebral atrophy. No intracranial mass. No acute hemorrhage. Stable mild cerebral white matter chronic microvascular ischemia. Stable osteoma of the frontal sinuses. No skull fracture. The sinuses are clear. Cervical spine: Alignment is anatomic. Stable advanced multilevel degenerative disc disease. Stable advanced multilevel facet degeneration. No fracture or subluxation. IMPRESSION: No acute injury. Advanced chronic changes. This exam was performed using automated exposure control, adjustment of mA or kV according to patient size, and/or use of iterative reconstruction technique Electronically signed by Lucas Us 11/27/2019 12:05 PM) - CONSULTS/PCP/HOSPITALIST Notification #1 *Consult/PCP/Hospitalist*: Javi Martinist Time Discussed: 15:38 Reason/Comments: sepsis Consult Disposition: Admit Departure - Departure Date of Disposition Decision: 11/27/19 Time of Disposition Decision: 15:38 DIAGNOSIS: Febrile illness, acute, Severe sepsis with acute organ dysfunction, Weakness, Frequent falls Disposition: ADMITTED INPATIENT 09 Certified Medical Emergency: Emergent Condition: Fair Referrals and Follow-Ups: Frederick Sandra MD [Primary Care Provider] - - Critical Care Note This patient required my direct & personal management of CC.: Yes Total Time (mins): 40 Critical Care Statement: This patient required my direct personal management to treat or rule out processes, the absence of which, could potentiallly result in sudden, clinically significant life or limb threatening deterioration. Attestation - Physician/ CRISTI Attestation Patient care was provided by Advanced Practice Provider:: No The physician spent face to face time with patient:: Yes Advanced Practice Provider documentation review:: Supervising physician onsite and consulted in the evaluation and care of this patient. The physician did have a face to face encounter with the patient. This chart was documented by the indicated scribe, (Janey Coley, Karthik) and accurately reflects the services I performed and decisions made by me, El Bryan MD, as attested by the provider's signature.
[2019-11-27] MEDS ORDERED: VANCOMYCIN IV PER PHARMACY MISC SCH (16:00)
--- NOTE | 2019-11-27 16:48 | HISTORY AND PHYSICAL ---
CHIEF COMPLAINT: Falls with right-sided chest pain. 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 He presented to the emergency room complaining of multiple falls with chest wall and rib pain after a fall this morning. Although the patient has been falling more frequently, the family would not bring the patient in before today due to being afraid of the coronavirus. Patient states that his chest hurts all over. He is unable to pinpoint 1 area, he states hurts all the time. He cannot tell me exacerbating or alleviating factors. Chest x-ray revealed cardiomegaly with some probable pulmonary edema. He is noted to be febrile with a temperature of 100.5 degrees. PAST MEDICAL HISTORY: 1. 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 2. Atrial fibrillation. 3. Chronic kidney disease stage 3. 4. History of congestive heart failure. 5. History of CAD with ischemic cardiomyopathy. 6. Chronic anticoagulation with Eliquis. PAST SURGICAL HISTORY: Cardiac stents and foot surgery. SOCIAL HISTORY: Lives with his son. Denies alcohol, tobacco, or illicit drug use. ALLERGIES: No known drug allergies. HOME MEDICATIONS: A list will be obtained by the nursing staff, once verified review, restart as appropriate. REVIEW OF SYSTEMS: Discussed with the patient with pertinent positives stated in the HPI. He denied any syncope or dizziness, any chest pain or palpitations, any nausea, vomiting, diarrhea, constipation, black or bloody vomitus or stools, hematuria, dysuria, frequency, urgency. PHYSICAL EXAMINATION: GENERAL: This is an 89-year-old gentleman who is lying on the stretcher in the emergency room in no distress. VITAL SIGNS: Blood pressure is 124/83 with a heart rate of 90, respirations are 26, temperature is 100.5 degrees oral with O2 saturations 96% on 2 L nasal cannula. HEENT: Head is normocephalic, atraumatic. Mucous membranes are dry. NECK: Supple with trachea midline. CARDIOVASCULAR: Heart rate is irregularly irregular, S1 and S2 are appreciated. PULMONARY: Breath sounds are tachypneic with rhonchi scattered throughout. Chest rise falls symmetric respiration. GASTROINTESTINAL: Abdomen soft, nondistended with bowel sounds in all 4 quadrants. SKIN: Noted with poor turgor. NEUROLOGIC: He is confused. He does mumbles to questions and occasionally to conversations from other people. LABS: WBC is 27 with hemoglobin 12.2, hematocrit 38.9 and platelets of 280,000. Sodium 146, potassium 3.6, BUN 29, creatinine 1.2 with a glucose of 139. INR is 1.53. Troponin is 43. Urinalysis reveals small amount of blood with negative nitrites, less than 10 microscopic white blood cells and epithelial cells. Blood cultures are pending. Influenza screen A and B were negative. CT of the head and C-spine revealed no acute injury, advanced chronic changes to the head and C- spine alignment is anatomic. Stable advanced multilevel degenerative disk disease, stable advanced multilevel facet degeneration, no fracture or subluxation. Chest x-ray revealed cardiomegaly, probable pulmonary edema. ASSESSMENT AND PLAN: 1. Sepsis. 2. Febrile illness with source unknown at this time. Cultures are pending. 3. Weakness. 4. Frequent falls. 5. 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 6. Atrial fibrillation with chronic anticoagulation of Eliquis. 7. Chronic kidney disease stage 3. 8. History of congestive heart failure with history of ischemic cardiomyopathy. PLAN: The patient will be admitted to the hospital. He will be placed on telemetry. We will identify his home medications and continue these as appropriate. Check a BMP, CBC daily, antibiotic coverage of vancomycin and Zosyn and further antibiotics will be culture driven. Will identify his home medications and continue these as appropriate. Further treatments pending hospital course. Plan was discussed with Dr payne Dictated by ZOYA Mcdowell for Shawn Payne MD cc: ZOYA Mcdowell Patient with fever, tachypnea, marked leukocytosis. I can't see much besides his lung cancer on xray but suspect there is a pneumonia there, possibly post-obstructive. PTE is less likely as he is on eliquis at home but I'm uncertain about how good his compliance is. Will get CTA to look for pneumonia and rule out embolism. on exam there are significant rales and rhonchi anteriorly R>L. posterior lungs are actually fairly clear. bases sound good. fair air entry. BNP up a little but no LE edema, no clear pulm edema on xray. lung bases are fairly clear and patient's EF is barely low although he does have pretty severe pulmonary HTN. he doesn't appear volume overloaded on exam, so I don't think this is a CHF exacerbation. MTDD
[2019-11-27] MEDS ORDERED: VANCOMYCIN IV SCH (17:00)
[2019-11-27] MEDS ORDERED: VANCOMYCIN 600 MG in NS 150 ML IV ONE (17:00)
[2019-11-27] MEDS ORDERED: NS IV SCH (17:00)
[2019-11-27] MEDS ORDERED: VANCOMYCIN 1,600 MG in NS 250 ML IV ONE (17:00)
--- NOTE | 2019-11-27 17:03 | Diag Imaging Result Doc PS360 ---
CT ANGIOGRM PULMONARY ARTERIES - 11/27/2019 INDICATION: dyspnea, tachypnea. known lung cancer. fever. TECHNIQUE: Axial CT images were obtained after administering intravenous contrast. Coronal MIP images were generated. COMPARISON: 07/05/2019 FINDINGS: There is no pulmonary embolism. There is cardiomegaly. Stable dense opacification at the right lung apex. Stable advanced COPD. There are areas of subpleural round atelectasis in both lower lobes similar to prior. Mild interstitial pulmonary edema in the lung bases. The kidneys are multicystic. There are moderate degenerative changes of the spine. No acute or suspicious bony lesion. IMPRESSION: Chronic changes. This exam was performed using automated exposure control, adjustment of mA or kV according to patient size, and/or use of iterative reconstruction technique Electronically signed by Lucas Us 11/27/2019 5:00 PM
[2019-11-27] MEDS: NS 1,000 ML IV SCH (17:48)
[2019-11-27] MEDS ORDERED: NS 500 ML IV ONE (17:57)
[2019-11-27] MEDS: ELIQUIS PO SCH (21:34)
[2019-11-27] MEDS: COZAAR PO SCH (21:34)
[2019-11-27] MEDS: ZOSYN 4.5 GM in NS 100 ML IV SCH (22:49)
[2019-11-28] MEDS: ZOSYN 4.5 GM in NS 100 ML IV SCH ×4 (02:03→20:01)
[2019-11-28] MEDS: OXY IR PO PRN ×2 (05:35→20:01)
[2019-11-28 07:29] LABS: BASO# 0.01 X1000 (0.0-0.2); EOS# 0.01 X1000 (0.0-0.7); HEMATOCRIT 32.4 % (42.0-52.0); HEMOGLOBIN 9.9 g/dL (14.0-18.0); IMM GRAN# 0.17 X1000 (0.0-0.04); IMM GRAN% 0.6 % (0.0-0.5); LYMPH# 0.23 X1000 (1.2-3.4); LYMPH% 0.9 % (20.5-51.1); MCH 27.7 PG (27-31); MCHC 30.6 g/dL (33-37); MCV 90.8 FL (81-99); MONO# 1.12 X1000 (0.11-0.59); MONO% 4.3 % (1.7-9.3); MPV 11.2 FL (7.4-10.4); NEUT# 24.63 X1000 (1.4-6.5); NEUT% 94.2 % (42.2-75.2); PLT 207 X1000 (130-400); RBC 3.57 XMIL (4.7-6.1); RDW 17.8 % (11.5-14.5); WBC 26.17 X1000 (4.8-10.8)
[2019-11-28 07:42] LABS: AGAP 13; BUN 27 mg/dL (8-22); CALCIUM 8.8 mg/dL (8.8-10.2); CHLORIDE 110 mmol/L (98-107); COSMO 302; CREATININE 1.2 mg/dL (0.7-1.2); ESTIMATED GFR > 60; GLUCOSE 142 mg/dL (70-104); POTASSIUM 3.5 mmol/L (3.5-5.1); SODIUM 148 mmol/L (136-145); TCO2 25 mmol/L (25-35)
[2019-11-28 07:49] LABS: LYMPHS 3 % (21-51); MONO 3 % (1-9); SEGS 94 % (42-75)
[2019-11-28 08:27] LABS: IRON SATURATION 5 %; TIBC 170 ug/dL
[2019-11-28 08:30] LABS: TOTAL IRON 8 ug/dL (53-167); UNBOUND IRON 162 ug/dL (112-346)
[2019-11-28] MEDS: NS 1,000 ML IV SCH ×2 (11:01→19:02)
[2019-11-28] MEDS: CARDIZEM CD PO SCH (11:02)
[2019-11-28] MEDS: ZOLOFT PO SCH (11:02)
[2019-11-28] MEDS: TOPROL XL PO SCH (11:03)
[2019-11-28] MEDS: FERROUS SULFATE PO SCH ×2 (11:04→20:02)
[2019-11-28] MEDS: PROTONIX PO SCH (11:04)
[2019-11-28] MEDS: COZAAR PO SCH ×2 (11:04→20:02)
[2019-11-28] MEDS: 1/2 NS 1,000 ML IV SCH (11:37)
[2019-11-28 12:01] LABS: HEMATOCRIT 32.6 % (42.0-52.0)
--- NOTE | 2019-11-28 14:57 | PROGRESS NOTE ---
DATE: 11/28/2019 INTERVAL HISTORY: Patient with significantly improved work of breathing. He reports improvement in his shortness of breath. No further checo fevers but has had some intermittent mild elevations in temp. Blood cultures now positive for gram-positive cocci, presumptive MRSA. No new complaints. No other acute events. REVIEW OF SYSTEMS: Twelve point review of systems negative except as per interval history. LABS: WBC 26.1, hemoglobin 9.9, hematocrit 32.4, platelets 207,000. Sodium 148, potassium 3.5, BUN 27, creatinine 1.2, glucose 142. Iron 8, TIBC 170, iron sat 5, ferritin 342. VITAL SIGNS: T-max 99.8 degrees, pulse 80, respirations 12, blood pressure 119/67, O2 saturation 91% on 4 L by nasal cannula. IMAGING: Pulmonary arteriogram with no pulmonary embolism. Stable dense opacification in the right lung apex which is thought to be lung cancer. Stable advanced COPD, as well as some atelectasis. PHYSICAL EXAMINATION: General: No acute distress. Chronically ill-appearing. HEENT: Normocephalic, atraumatic. Cardiovascular: Regular rate and rhythm. Pulmonary: Anterior lungs clearer than previous. Still slightly decreased throughout. A few scattered rhonchi but improved. Abdomen: Soft, nontender, nondistended. Bowel sounds positive. Extremities: Peripheral pulses intact. No clubbing, cyanosis, or edema. Neurologic: Globally quite weak, but no focal deficits noted. Psychiatric: Awake, alert, oriented to person. The patient is cooperative with all commands and most responses to questions are appropriate. ASSESSMENT AND PLAN: 1. Sepsis, respiratory distress, chronic hypoxic respiratory failure. Patient admitted with fever, increased work of breathing, tachypnea. Initially favored pneumonia as his diagnosis, but CTA does not really show a whole lot. He has a dense lung cancer in the right apex and could potentially have some pneumonia associated with it, though that is still difficult to pick out, but difficult to blame it on that entirely. Now with blood cultures growing out presumptive MRSA which may be more the cause of his presentation. Symptomatically much improved overnight with antibiotics. On vancomycin and Zosyn currently which we will continue for now. Repeating blood cultures. Continue oxygen support as needed. Consulting Pulmonology. 2. Lung cancer. Patient with known right upper lobe mass that the patient and family have elected not to treat. 3. Anemia. Patient with drop in blood counts from admission, 12.2 to 9.9. No overt signs or symptoms of bleeding. Repeat blood counts essentially stable with hemoglobin 10. Iron studies suggest at least some level of iron deficiency. Family reports poor p.o. intake and weight loss over the last few months, so it may just be nutritional. We will place him on iron supplements and monitor. 4. Hypernatremia. Sodium still climbing a little bit, so we will put him on some gentle half- normal saline and monitor. 5. Chronic systolic congestive heart failure. Patient with EF of 40 and severe pulmonary hypertension. BNP elevated but clinically not much to suggest significant volume overload. He actually looked significantly dry on presentation and sodium is up. Gently hydrating as above. Monitor for signs of volume overload though. 6. Hyperlipidemia. Continue statin. 7. Hypertension. Patient hypertensive by history but blood pressure has been pretty normal here. Continue his losartan and Toprol given underlying heart failure, but holding Norvasc. 8. Paroxysmal atrial fibrillation. He has been normal sinus rhythm here but continuing diltiazem and Eliquis. Eliquis was held briefly with drop in hemoglobin and hematocrit this morning but since it is now stable, we will go ahead and resume that. 9. Bacteremia. Patient with initial blood cultures positive for gram-positive cocci, preliminarily MRSA. On vancomycin as above. Repeating blood cultures. Monitor. If MRSA is confirmed when his blood cultures finalize then he may need an echocardiogram. 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 Patient with poor appetite but denies nausea, vomiting, diarrhea. Will request for Ensure to be brought with meals and encourage p.o. intake.
[2019-11-28] MEDS: ELIQUIS PO SCH (20:02)
--- NOTE | 2019-11-29 00:39 | PULMONOLOGY CONSULTATION ---
DATE: 11/28/2019 REQUESTING CLINICIAN: Dr. Payne. REASON FOR CONSULTATION: Fever, tachypnea, and lung cancer. HISTORY OF PRESENT ILLNESS: Mr. Leong is an 89-year-old white male with untreated bronchoalveolar cell carcinoma, who was brought to the emergency room with weakness and frequent falls. He was noted to have a low-grade fever in the emergency room along with significant leukocytosis. Chemistries were performed and 2 cultures are positive for gram-positive cocci. CT scan of the thorax was performed which revealed no evidence of pulmonary emboli. There is dense opacification at the right apex with advanced COPD. No change from CT scan on 07/05/2019. PAST MEDICAL HISTORY: 1. 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 2. Severe pulmonary hypertension. 3. Ischemic cardiomyopathy. 4. Atrial fibrillation. 5. Kidney disease. 6. Hypertension. 7. Peripheral vascular disease. SOCIAL HISTORY: The patient has a [id number] history for tobacco. FAMILY HISTORY: Noncontributory. REVIEW OF SYSTEMS: Notable for generalized weakness. He reports he does not feel well, but he cannot further delineate. PHYSICAL EXAMINATION: General: Reveals a deeply ill-appearing male who is resting comfortably. Vital Signs: Blood pressure is 110/70, heart rate 69, respiratory rate 12, oxygen saturation is 100% on nasal cannula. HEENT: Pupils are equal and reactive. Oropharynx appears clear. Neck: Supple. Chest: Reveals rhonchi bilaterally. Cardiac: S1, S2. Abdomen: Soft. Extremities: Without edema. LABORATORY DATA: White blood count 26,000, hemoglobin 9.9, platelet count 207,000. Sodium 138, potassium 3.5, chloride 110, bicarbonate 27, BUN 1.2. IMPRESSION: An 89-year-old with presumptive MRSA bacteremia. CT scan has chronic changes that could be the source of infection. He has significant leukocytosis. Hemodynamically he appears stable. RECOMMENDATIONS: 1. Continue current antibiotic regimen. 2. Consider echocardiogram to rule out endocarditis. 3. Overall prognosis is guarded. cc: Guilherme Ramos MD
[2019-11-29] MEDS: ZOSYN 4.5 GM in NS 100 ML IV SCH ×2 (02:55→08:48)
[2019-11-29] MEDS: 1/2 NS 1,000 ML IV SCH ×2 (04:59→18:00)
[2019-11-29 06:37] LABS: EOS# 0.37 X1000 (0.0-0.7); EOS% 2.1 % (0.0-10.0); HEMATOCRIT 30.9 % (42.0-52.0); HEMOGLOBIN 9.6 g/dL (14.0-18.0); IMM GRAN# 0.06 X1000 (0.0-0.04); IMM GRAN% 0.3 % (0.0-0.5); LYMPH# 0.49 X1000 (1.2-3.4); LYMPH% 2.7 % (20.5-51.1); MCHC 31.1 g/dL (33-37); MCV 90.1 FL (81-99); MONO# 0.79 X1000 (0.11-0.59); MONO% 4.4 % (1.7-9.3); MPV 11.1 FL (7.4-10.4); NEUT# 16.25 X1000 (1.4-6.5); NEUT% 90.5 % (42.2-75.2); PLT 173 X1000 (130-400); RBC 3.43 XMIL (4.7-6.1); RDW 17.9 % (11.5-14.5); WBC 17.96 X1000 (4.8-10.8)
[2019-11-29 07:00] LABS: AGAP 11; BUN 32 mg/dL (8-22); CALCIUM 8.7 mg/dL (8.8-10.2); CHLORIDE 104 mmol/L (98-107); COSMO 287; CREATININE 1.3 mg/dL (0.7-1.2); ESTIMATED GFR > 60; GLUCOSE 147 mg/dL (70-104); POTASSIUM 2.9 mmol/L (3.5-5.1); SODIUM 139 mmol/L (136-145); TCO2 24 mmol/L (25-35)
[2019-11-29] MEDS: OXY IR PO PRN ×2 (08:31→14:56)
[2019-11-29] MEDS: TOPROL XL PO SCH ×3 (08:32→20:48)
[2019-11-29] MEDS: PROTONIX PO SCH (08:32)
[2019-11-29] MEDS: ELIQUIS PO SCH (08:32)
[2019-11-29] MEDS: CARDIZEM CD PO SCH (08:32)
[2019-11-29] MEDS: COZAAR PO SCH ×3 (08:32→20:47)
[2019-11-29] MEDS: ZOLOFT PO SCH (08:32)
[2019-11-29] MEDS: FERROUS SULFATE PO SCH ×3 (08:32→20:47)
--- NOTE | 2019-11-29 14:47 | CARDIOLOGY CONSULTATION ---
DATE: 11/29/2019 REASON FOR CONSULTATION: Cardiology was consulted for transesophageal to rule out endocarditis. The patient is admitted with fever, tachypnea. HISTORY OF PRESENT ILLNESS: This 89-year-old gentleman was admitted. He has history of bronchoalveolar carcinoma followed by Dr. Galaviz. Not undergoing treatment given patient's refusal. Has also history of atrial fibrillation, coronary artery disease, chronic kidney disease. He came with a low-grade fever to the emergency room. Complained of generalized body ache and generally not feeling well, noted to have a temperature of 100 degrees. Chest x-ray revealed cardiomegaly and a CT scan of his chest was done which was negative for pulmonary embolism. Pulmonary edema was noted. There was a stable dense opacification at the right lung. And also he was positive on blood cultures with Staph aureus. And cardiology was consulted for transesophageal echocardiogram evaluation. He has been started on antibiotics. There is no history of palpitations. REVIEW OF SYSTEM: A 14-point review of systems was done. GI System: There is no history of nausea or vomiting. There is no history of hematemesis or melena. Central nervous system: No focal weakness to suggest a CVA or TIA. Genitourinary System: There is no dysuria or hematuria. PAST MEDICAL HISTORY: 1. Bronchoalveolar cancer. 2. Atrial fibrillation. 3. Anticoagulation therapy. 4. Chronic kidney disease. 5. Coronary artery disease, status post stent placement to right coronary artery in 2003. 6. LV dysfunction. Ejection fraction of 25 to 30 percent. 7. History of heart failure. 8. Hypertension. 9. Diabetes. 10. Chronic kidney disease. 11. Peripheral vascular disease, status post right carotid endarterectomy. SOCIAL HISTORY: Has a 37 pack year history of smoking. There is no alcohol abuse. FAMILY HISTORY: Noncontributory. PHYSICAL EXAMINATION: Vital signs: Blood pressure 110/70. Cardiac: Jugular venous pressure was normal. First and second heart sounds were heard. There was no S3 gallop. Respiratory: Bilateral wheeze. Abdomen: Soft, nontender. There was no guarding or rigidity. Bowel sounds were heard. Central nervous system: Alert, was moving all 4 extremities. Extremities: Examination of his extremities revealed no pedal edema. Neck: Jugular there was no jugular venous pressure elevation. Trachea was in midline. No lymphadenopathy. ASSESSMENT AND PLAN: 1. Mr. Chandana Leong is 89-year-old gentleman with history of coronary artery disease, atrial fibrillation, systolic heart failure, bronchoalveolar carcinoma, is admitted with fevers. Blood cultures revealed gram positive cocci, MRSA presumptive. He also has leukocytosis. From a cardiac standpoint, I had a detailed discussion with the patient. Given his MRSA, we will plan for a transesophageal echocardiogram to rule out endocarditis. Patient is agreeable. We will hold the Eliquis prior to the procedure. 2. As far as his home medications are concerned, for hypertension and LV dysfunction, he is on losartan, and I have not made any changes. 3. He has atrial fibrillation. We will get an EKG. In the past, he has had atrial fibrillation. He is on a combination of beta-blockers and diltiazem. Not made any changes at the present time. 4. He is on anticoagulation therapy with Eliquis. I would recommend continuing medications of Eliquis after the procedure. 5. Has known coronary artery disease. Cardizem has been restarted. 6. Peripheral vascular disease. I have not made any changes. 7. He has got electrolyte imbalance with a potassium of 2.9. We will replete with IV potassium supplements for 40 units IV over 4 hours. 8. Methicillin-resistant Staphylococcus aureus. He is on antibiotics with Zosyn and vancomycin. Thank you for the consult. We will follow hospital course. cc: MD Ghulam Infante MD
--- NOTE | 2019-11-29 15:39 | EKG Report ---
Test Performed on : 11/29/2019 2:37:49 PM Test Reason : dyspnea Blood Pressure : / mmHG Vent. Rate : 048 BPM Atrial Rate : 046 BPM P-R Int : 000 ms QRS Dur : 102 ms QT Int : 516 ms P-R-T Axes : 000 030 038 degrees QTc Int : 460 ms Critical Test Result: Low HR Atrial fibrillation. with slow ventricular response. Nonspecific ST abnormality Abnormal ECG When compared with ECG of 19-OCT-2019 00:19, (Unconfirmed) No significant change was found Confirmed by Kenn Hyatt MD ([id number]) on 11/30/2019 3:43:10 PM
[2019-11-29] MEDS: POTASSIUM CHLORIDE 20 MEQ/SWI 20 MEQ/100 ML IVPB IV SCH ×2 (16:24→17:34)
[2019-11-29] MEDS ORDERED: VANCOMYCIN 1 GM/NS 1 GM/250 ML IVPB IV SCH (17:00)
--- NOTE | 2019-11-29 17:48 | PROGRESS NOTE ---
DATE: 11/29/2019 SUBJECTIVE: Patient has no major complaints. OBJECTIVE: Blood pressure 100/58, heart rate of 46, respiratory rate 17, temperature 97.9 degrees.Cardiovascular: Regular rate and rhythm. Pulmonary: Bilateral breath sounds clear to auscultation. GI: Soft, nontender, nondistended. Bowel sounds are positive. LABORATORY DATA: White count is down to 17, hemoglobin and hematocrit 9, 30, platelets 173,000, potassium 2.9, creatinine 1.3. PROBLEM LIST: 1. Methicillin-resistant Staphylococcus aureus bacteremia. At this point he has soft criteria for endocarditis. He has 2 sets of blood cultures that are positive for methicillin-resistant Staphylococcus aureus, the timing difference was a day so he was positive on the and is repeat positive on the so he has a persistent bacteremia. We have looked at the echocardiogram. It was slightly abnormal previously that was in October so we are going to just progress with a ELLE which we will hopefully do tomorrow. I appreciate Dr. Ray's evaluation, will pursue ELLE tomorrow. 2. Atrial fibrillation and congestive heart failure. He seems to be doing okay from that standpoint relatively well compensated. He is currently on those medications. 3. Atrial fibrillation. Continue his medications until we can get things stabilized. DISPOSITION: Pending his clinical status. He is going to at least need 2 weeks of IV antibiotics. I stopped his Zosyn because we have a positive source of infection. There is a question of pneumonia but his CT just showed cancer. He does not have any hardware lines or anything like that to be a source of infection. Certainly could be pneumonia but I have gone ahead and stopped the Zosyn at the discretion and Dr. Ramos feels differently and certainly can be resumed but since we have a target organism, vancomycin or daptomycin should be sufficient once we have cleared the bacteremia, his kidney function is a bit off. We may have to consider I think I am probably going to go ahead and start rifampin since he has persistent bacteremia until we know he is cleared which I will probably do this for another 48 hours before we decide about replacing his and getting blood cultures then. Disposition pending his clinical status. Continue to follow. cc: Ghulam Thomas MD
[2019-11-29] MEDS: RIFAMPIN PO SCH (17:58)
--- NOTE | 2019-11-29 22:54 | PULMONOLOGY PROGRESS NOTE ---
DATE: 11/29/2019 SUBJECTIVE: The patient is awake and alert. He is without specific complaints. OBJECTIVE: Vital Signs: The patient's maximum temperature in the last 24 hours was 99.8 degrees. Blood pressure 100/58, heart rate 46, respiratory rate 17, oxygen saturation 100% on nasal cannula. HEENT: Pupils are equal and reactive. Oropharynx appears clear. Neck: Is supple. Chest: Reveals decreased breath sounds right apex. Cardiac exam: S1-S2, decreased rate. Abdomen: Is soft. Extremities: Without edema. LABORATORIES: White blood count 17.96, hemoglobin 9.6, platelet count 173,000. Microbiology reveals continued bacteremia from blood cultures obtained yesterday. IMPRESSION: An 89-year-old with 1. 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 2. Severe pulmonary hypertension. 3. Ischemic cardiomyopathy. 4. Ongoing methicillin-resistant Staphylococcus aureus bacteremia. PLAN: 1. Agree with discontinuation of Zosyn given the identification methicillin-resistant Staphylococcus aureus. 2. Anticipate transesophageal echocardiogram tomorrow with antibiotic regimen to be determined following results of the transesophageal echocardiogram. cc: MD Ghulam Hart MD
[2019-11-30] MEDS: OXY IR PO PRN ×3 (00:32→18:54)
[2019-11-30 06:54] LABS: BASO# 0.01 X1000 (0.0-0.2); BASO% 0.1 % (0.0-0.8); EOS# 0.35 X1000 (0.0-0.7); EOS% 2.3 % (0.0-10.0); HEMATOCRIT 30.5 % (42.0-52.0); HEMOGLOBIN 9.6 g/dL (14.0-18.0); IMM GRAN# 0.05 X1000 (0.0-0.04); IMM GRAN% 0.3 % (0.0-0.5); LYMPH# 0.52 X1000 (1.2-3.4); LYMPH% 3.4 % (20.5-51.1); MCH 28.1 PG (27-31); MCHC 31.5 g/dL (33-37); MCV 89.2 FL (81-99); MONO# 1.07 X1000 (0.11-0.59); MPV 11.6 FL (7.4-10.4); NEUT# 13.19 X1000 (1.4-6.5); NEUT% 86.9 % (42.2-75.2); PLT 180 X1000 (130-400); RBC 3.42 XMIL (4.7-6.1); RDW 17.7 % (11.5-14.5); WBC 15.19 X1000 (4.8-10.8)
[2019-11-30 07:09] LABS: EOS 6 % (1-10); LYMPHS 4 % (21-51); MONO 8 % (1-9); SEGS 82 % (42-75)
[2019-11-30 07:32] LABS: CALCIUM 8.6 mg/dL (8.8-10.2); CREATININE 1.5 mg/dL (0.7-1.2); POTASSIUM 3.8 mmol/L (3.5-5.1)
[2019-11-30] MEDS: TOPROL XL PO SCH (08:36)
[2019-11-30] MEDS: COZAAR PO SCH (08:37)
--- NOTE | 2019-11-30 09:08 | EKG Report ---
Test Performed on : 11/30/2019 08:58:23 AM Test Reason : bradycardia Blood Pressure : / mmHG Vent. Rate : 049 BPM Atrial Rate : 041 BPM P-R Int : 000 ms QRS Dur : 100 ms QT Int : 540 ms P-R-T Axes : 000 056 037 degrees QTc Int : 487 ms Critical Test Result: Low HR Atrial fibrillation. with slow ventricular response. with premature ventricular or aberrantly conduct ed complexes. Nonspecific ST abnormality Prolonged QT Abnormal ECG When compared with ECG of 29-NOV-2019 14:37, (Unconfirmed) No significant change was found Confirmed by Kenn Hyatt MD ([id number]) on 11/30/2019 4:00:30 PM
[2019-11-30] MEDS ORDERED: DIPRIVAN 1% ONE (11:08)
--- NOTE | 2019-11-30 12:46 | Transesophageal Echocardiogram ---
DATE: 11/30/2019 PROCEDURE PERFORMED: Transesophageal echocardiogram to rule out endocarditis. Informed consent was obtained from the patient. Intravenous access was established. The patient was brought to the cardiac catheterization laboratory. The patient's oropharynx was anesthetized using Cetacaine spray. The patient was given propofol. Please see detailed anesthesia records. A transesophageal probe was easily passed into the esophagus and ultrasound pictures were obtained. FINDINGS: 1. Normal left ventricular cavity size. Estimated ejection fraction of 45%. 2. Aortic valve leaflets were trileaflet, sclerosed. 3. 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 4. Tricuspid valve was normal. 5. Pulmonic valve was normal. 6. Left atrium was enlarged. Left atrium appendage was normal. 7. Right atrium was enlarged. 8. There is moderate eccentric mitral regurgitation. 9. There is no aortic stenosis. There is mild aortic regurgitation. 10. There is mild tricuspid regurgitation. 11. There is mild pulmonary regurgitation. 12. Descending aorta had layered plaque. Ascending aorta had layered plaque. 13. There was no obvious vegetation or abscess noted. CONCLUSIONS: 1. No vegetation or abscess noted. 2. 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 3. There is no pericardial effusion. cc: MD Jeimy Infante PA Alexis R. Penot, MD
[2019-11-30] MEDS: PROTONIX PO SCH ×2 (13:59→14:10)
[2019-11-30] MEDS: ZOLOFT PO SCH ×2 (13:59→14:11)
[2019-11-30] MEDS: RIFAMPIN PO SCH ×2 (14:00→14:11)
[2019-11-30] MEDS: FERROUS SULFATE PO SCH ×2 (14:00→14:10)
[2019-11-30] MEDS: 1/2 NS 1,000 ML IV SCH (14:12)
--- NOTE | 2019-11-30 15:16 | HEMO/ONC CONSULTATION ---
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 HISTORY OF PRESENT ILLNESS: Mr. Leong is an unfortunate 89-year-old male who has come to the ER per family with complaints of multiple falls with chest wall and rib pain. The patient's family states he has been falling more frequently. They have not brought him in prior to today due to being afraid of the Coronavirus. The patient tells the ER his chest hurts all over and hurts constantly. The patient was found to be febrile with a temperature of a 100.5 degrees. Chest x-ray revealed cardiomegaly and probably pulmonary edema. In the clinic we have followed the patient for stage 3 right upper lung carcinoma. The patient and his family had agreed to simply monitor the patient and hold off on any therapy at this time. He is status post definitive radiation. Our plan was to repeat scans and evaluate every three months. However, the patient has not returned to the clinic since May of 2019. His last CT scan showed stable disease. PAST MEDICAL HISTORY: 1. Bronchioloalveolar carcinoma with no treatment per patient's choice. 2. Atrial fibrillation. 3. Chronic kidney disease stage 3. 4. Congestive heart failure. 5. CAD with ischemic cardiomyopathy. 6. Chronic anticoagulation with Eliquis. PAST SURGICAL HISTORY: Cardiac stents and foot surgery. SOCIAL HISTORY: The patient denies tobacco, alcohol, or illicit drug use. ALLERGIES: No known drug allergies. HOME MEDICATIONS: Norvasc, Eliquis, Cardizem CD, Lasix, Icar C, isosorbide mononitrate, Cozaar, milk of magnesium, metoprolol succinate ER, Oxy IR, Protonix, sertraline HCL, simvastatin, Ambien. VITAL SIGNS: Temperature 97.4 degrees, pulse rate 60, respiratory rate 21, blood pressure 128/64, O2 saturation 100% on room air. He is in 0/10 pain. PHYSICAL EXAMINATION: General: The patient appeared in no acute distress. HEENT: Sclerae anicteric. PERRLA. Oral mucosa is normal. Cardiovascular: Heart rate is irregularly irregular. S1, S2 noted. Respiratory: Rhonchi noted throughout. The patient is tachypneic, not using accessory muscles at this time. Gastrointestinal: Abdomen is soft, nondistended, nontender. Bowel sounds noted. Neurological: The patient is confused. LABORATORY: WBCs 15.19, hemoglobin 9.6, hematocrit 30.5, platelet count 180,000. Creatinine 1.5, BUN 35, calcium 8.6. IMAGING: Chest x-ray showed cardiomegaly, probably pulmonary edema. CT head and spine, no acute injury. Moderate cerebral atrophy. CT angio pulmonary arteries, no PE noted, chronic changes. ASSESSMENT: 1. Sepsis. 2. Febrile illness, unknown source. Cultures show gram-positive cocci and Staphylococcus aureus. 3. Frequent falls. 4. Bronchioloalveolar carcinoma, status post radiation. No other treatment per patient choice. 5. Atrial fibrillation with chronic anticoagulation on Eliquis. 6. Chronic kidney disease stage 3. 7. Congestive heart failure with history of ischemic cardiomyopathy. 8. Deep venous thrombosis prophylaxis. The patient is anticoagulated with Eliquis. From our standpoint, the patient has a very slow-growing cancer. He has chosen not to pursue treatment. He has not been seen in the office since 06/06/2019. He has had several scans obtained while during hospitalization. We agree with the medical management you are providing. We will continue to follow peripherally. Please let us know if you need us for anything. Dictated by ZOYA Ness for Semaj Galaviz MD As above. Has had slow growing cancer. Family has been reluctant for hospice, but he is hospice appropriate. Family very attentive and has been able to care for him. We have not given him any cancer therapy due to his slow growing cancer. No therapy recommended from that standpoint. Semaj Galaviz MD cc: MD Ghulam Logan MD [facility]
--- NOTE | 2019-11-30 17:20 | PROGRESS NOTE ---
DATE: 11/30/2019 SUBJECTIVE: The patient has no major complaints. OBJECTIVE: Blood pressure 128/64, heart rate of 60, respiratory rate of 21, temperature 97.4 degrees. Cardiovascular: Regular rate and rhythm. Pulmonary: Bilateral breath sounds clear to auscultation. GI: Soft, nontender, nondistended. Bowel sounds were positive. Extremities: Have no clubbing or cyanosis. Lymphatic Examination: No peripheral edema. Neurological: Examination was nonfocal. Laboratory Data: White count is 15, hemoglobin and hematocrit 9 and 30, platelets 180,000. Creatinine is at 1.5. PROBLEM LIST: 1. Methicillin-resistant Staphylococcus aureus bacteremia. Transesophageal echocardiogram was negative. He has had two sets of positive blood cultures. I am going to get another one tomorrow and see where we are at. I anticipate if it is negative, we will be able to pursue a peripherally inserted central catheter line and then home with intravenous antibiotics, possibly for 2 weeks. There is no evidence of endocarditis but he does have persistent bacteremia. There is no hardware in place. He does not have a port or anything to that effect. 2. Bronchioalveolar cancer, which he has refused treatment. The family is requesting consultation with Dr. Galaviz. I have gone ahead and progressed that. 3. Atrial fibrillation, is rate controlled. He seems to be doing okay. He is on Eliquis, which we will resume, and continue to follow. 4. Acute on chronic kidney injury. I am going to stop his losartan and we will see how his numbers look tomorrow. DISPOSITION: Pending his clinical status. cc: Ghulam Thomas MD
--- NOTE | 2019-11-30 21:35 | EKG Report ---
Test Performed on : 11/30/2019 8:11:24 PM Test Reason : Chest Pain Blood Pressure : / mmHG Vent. Rate : 064 BPM Atrial Rate : 083 BPM P-R Int : 000 ms QRS Dur : 098 ms QT Int : 462 ms P-R-T Axes : 000 054 039 degrees QTc Int : 476 ms Atrial fibrillation. with premature ventricular or aberrantly conducted complexes. Abnormal ECG When compared with ECG of 30-NOV-2019 08:58, No significant change was found Confirmed by Kenn Hyatt MD ([id number]) on 12/03/2019 5:06:35 PM
--- NOTE | 2019-11-30 22:38 | PULMONOLOGY PROGRESS NOTE ---
DATE: 11/30/2019 SUBJECTIVE: Patient reports he has had a rough day. He did have ELLE earlier today. He does notice some chest pain with movement and inspiration. OBJECTIVE: Vital signs: Blood pressure 128/64, heart rate 60, respiratory rate 21, oxygen saturation 96% on 3 L by nasal cannula. HEENT: Pupils were equal and reactive. Oropharynx appears clear but dry. Neck: Supple. Chest: Reveals decreased breath sounds right base with crackles bilaterally. Cardiac Exam: S1 and S2. Abdomen: Soft. Extremities: Without edema. LABORATORIES: Sodium 138, potassium 3.8, chloride 102, bicarbonate 24, BUN 35, creatinine 1.5. No new microbiology data. ELLE reveals no definite endocarditis. IMPRESSION: An 89-year-old with: 1. Nontreated bronchoalveolar cell carcinoma. 2. Severe pulmonary hypertension. 3. Ischemic cardiomyopathy. 4. Methicillin resistant Staphylococcus aureus bacteremia with negative ELLE. PLAN: 1. Continue to treat methicillin resistant Staphylococcus aureus pneumonia. 2. Repeat blood cultures as outlined by Dr. Thomas. cc: MD Ghulam Hart MD
[2019-12-01] MEDS: 1/2 NS 1,000 ML IV SCH ×2 (01:04→05:52)
[2019-12-01] MEDS: OXY IR PO PRN ×3 (01:32→14:39)
[2019-12-01] MEDS: ELIQUIS PO SCH ×3 (01:33→21:51)
[2019-12-01] MEDS: FERROUS SULFATE PO SCH ×3 (01:37→21:51)
[2019-12-01 07:12] LABS: BASO# 0.01 X1000 (0.0-0.2); BASO% 0.1 % (0.0-0.8); EOS# 0.29 X1000 (0.0-0.7); HEMATOCRIT 31.3 % (42.0-52.0); HEMOGLOBIN 9.7 g/dL (14.0-18.0); IMM GRAN# 0.06 X1000 (0.0-0.04); IMM GRAN% 0.4 % (0.0-0.5); LYMPH# 0.32 X1000 (1.2-3.4); LYMPH% 2.2 % (20.5-51.1); MCH 27.8 PG (27-31); MCV 89.7 FL (81-99); MONO# 1.08 X1000 (0.11-0.59); MONO% 7.4 % (1.7-9.3); MPV 11.6 FL (7.4-10.4); NEUT# 12.84 X1000 (1.4-6.5); NEUT% 87.9 % (42.2-75.2); PLT 187 X1000 (130-400); RBC 3.49 XMIL (4.7-6.1); RDW 17.7 % (11.5-14.5)
[2019-12-01 07:41] LABS: AGAP 12; BUN 28 mg/dL (8-22); CALCIUM 8.3 mg/dL (8.8-10.2); CHLORIDE 104 mmol/L (98-107); COSMO 278; CREATININE 1.2 mg/dL (0.7-1.2); ESTIMATED GFR > 60; GLUCOSE 77 mg/dL (70-104); POTASSIUM 3.4 mmol/L (3.5-5.1); SODIUM 137 mmol/L (136-145); TCO2 21 mmol/L (25-35)
[2019-12-01] MEDS: ZOLOFT PO SCH (10:50)
[2019-12-01] MEDS: RIFAMPIN PO SCH (10:50)
[2019-12-01] MEDS: PROTONIX PO SCH (10:50)
[2019-12-01] MEDS ORDERED: KLOR-CON PO ONE (11:27)
[2019-12-01] MEDS ORDERED: LASIX IV ONE (17:44)
--- NOTE | 2019-12-01 18:16 | PROGRESS NOTE ---
DATE: 12/01/2019 SUBJECTIVE: Patient has no major complaints. OBJECTIVE: Vital Signs: Blood pressure is 139/79, heart rate of 89, respiratory rate 22, temperature 99.2 degrees, afebrile. Cardiovascular: Regular rate and rhythm. Pulmonary: Bilateral breath sounds clear to auscultation. Gastrointestinal: Abdomen was soft, nontender, nondistended. Bowel sounds are positive. Extremities: No clubbing or cyanosis. Lymphatics: No peripheral edema. Neurological: Nonfocal. LABORATORY DATA: So far, I believe, his repeat blood cultures are negative. They were just done today. White count 14, which is down. Hemoglobin and hematocrit 9 and 31, platelets 187,000. BUN and creatinine are down at 28 and 1.2. Potassium 3.4. PROBLEM LIST: 1. Methicillin-resistant Staphylococcus aureus bacteremia. He has a negative transesophageal echocardiogram so we are waiting on negative blood cultures and then we can pursue a PICC or intermediate line and decide about intravenous antibiotics. At this point, I would assume two weeks is sufficient since he does not have endocarditis and he does not have hardware. 2. Bronchioloalveolar cancer, which he has refused treatment in the past. They wanted a Hematology/Oncology consultation, which I think Dr. Galaviz saw him and felt it was a slow- growing cancer, but they did not want hospice even though he is hospice appropriate, and they did not recommend any therapy at this point, and again he needs to get over the infection before they do consider it. In any case we are going to follow that up as an outpatient. 3. Atrial fibrillation. He is stable. Continue his Eliquis. He has had relative bradycardia on his Lopressor, so I have held that. 4. He looks like to me he has had some increased work of breathing, which I do not have a great explanation for. Maybe he is getting a little volume overloaded, although his ejection fraction I think was fairly intact. DISPOSITION: We are looking at a PICC line and home health but I do not know if his family is considering doing rehab. We will discuss this more with them over the next 24 hours. cc: Ghulam Thomas MD
[2019-12-01] MEDS: PERCOCET-10 PO PRN (18:21)
--- NOTE | 2019-12-01 18:34 | Diag Imaging Result Doc PS360 ---
CHEST-PORTABLE - 12/01/2019 INDICATION: dyspnea COMPARISON: 11/27/2019 FINDINGS: Stable dense opacification of the right lung apex. Stable right hilar enlargement. Stable mild infiltrate throughout the right lung base. Stable severe cardiomegaly. The ill-defined infiltrates/edema throughout the left lung has improved. IMPRESSION: Slight improvement in aeration of the left lung. Electronically signed by Lucas Us 12/01/2019 6:31 PM
[2019-12-01] MEDS: VANCOMYCIN IV SCH (18:43)
[2019-12-01] MEDS: NS IV SCH (18:43)
--- NOTE | 2019-12-01 22:52 | PULMONOLOGY PROGRESS NOTE ---
DATE: 12/01/2019 SUBJECTIVE: The patient is awake, alert, and conversant. He reports he has had a "pretty good day." He is without specific complaints. He remains afebrile. OBJECTIVE: Vital signs: BP 112/66, heart rate 77, respiratory rate 19, oxygen saturation 100% on nasal cannula. HEENT: Pupils are equal and reactive. Oropharynx appears clear. Neck: Supple. Chest: Reveals crackles in both lung bases with decreased breath sounds right apex. CARDIAC: S1, S2. Abdomen: Soft. Extremities: Without edema. LABORATORIES: Most recent blood cultures remain negative. Chest x-ray reveals some improvement in the left base. White blood count 14.6, hemoglobin 9.7, platelet count 187,000. IMPRESSION: An 89-year-old with 1. Untreated bronchoalveolar cell carcinoma. 2. Severe pulmonary hypertension. 3. Ischemic cardiomyopathy. 4. Methicillin-resistant Staphylococcus aureus bacteremia with negative transesophageal echocardiogram, probably related to pneumonia. PLAN: Continue to treat for MRSA pneumonia, at least 2 weeks of therapy is recommended as outlined by Dr. Thomas. cc: MD Ghulam Hart MD
[2019-12-02] MEDS: PERCOCET-10 PO PRN ×2 (02:22→14:25)
[2019-12-02] MEDS: FERROUS SULFATE PO SCH ×2 (09:24→20:29)
[2019-12-02] MEDS: PROTONIX PO SCH (09:24)
[2019-12-02] MEDS: ZOLOFT PO SCH (09:24)
[2019-12-02] MEDS: ELIQUIS PO SCH ×2 (09:24→20:29)
[2019-12-02] MEDS: RIFAMPIN PO SCH (09:24)
--- NOTE | 2019-12-02 11:29 | HEMO/ONC PROGRESS NOTE ---
DATE: 12/02/2019 SUBJECTIVE: Mr. Leong is still lying in bed this morning. He has not received his breakfast yet. He seems to be a bit dyspneic this morning. The patient is asking me to help him call his daughter this morning. He states he does not feel well but cannot pinpoint any significant complaint. He denies pain anywhere. He had no acute events overnight. OBJECTIVE: Vital Signs: Temperature 98.2 degrees, pulse rate 85, respiratory rate 18, blood pressure 144/85, O2 saturation 100% via nasal cannula on 4 L. The patient is in 0/10 pain. PHYSICAL EXAMINATION: General: The patient is slightly dyspneic but otherwise in no acute distress. HEENT: PERRLA. Oral mucosa is normal. Respiratory: Crackles at the lung bases. Breath sounds are diminished overall. Cardiovascular: Regular rate and rhythm. Abdomen: Soft, nontender, nondistended. Extremities: Without edema. Neurological: He is alert and oriented. He does answer questions appropriately. LABORATORY: No labs were drawn today. The patient's CEA is 2.4. ASSESSMENT AND PLAN: 1. Untreated bronchioloalveolar carcinoma status post radiation. The patient and his family have determined it is appropriate now for him to go home on hospice. The patient is hospice- appropriate. Family is very attentive and able to care for him. 2. Methicillin-resistant Staphylococcus aureus pneumonia. The patient is being treated per Medical management and Pulmonology, continue their recommendations. 3. Atrial fibrillation. The patient is on Eliquis. His atrial fibrillation is stable. 4. Deep venous thrombosis prophylaxis. The patient is on Eliquis. DISPOSITION: We will follow the patient peripherally. Please call us if we are needed over the weekend. We have not seen the patient in the office since May 2019. We understand he is most likely going home with hospice. We will be happy to see or re-evaluate the patient in the clinic if his family feels that is necessary. Dictated by ZOYA Ness for Semaj Galaviz MD cc: MD Ghulam Logan MD
[2019-12-02] MEDS: ZOFRAN IV PRN (15:01)
--- NOTE | 2019-12-02 15:40 | PULMONOLOGY PROGRESS NOTE ---
DATE: 12/02/2019 SUBJECTIVE: The patient is awake and alert. He states that he is doing good today. He denies any complaints. OBJECTIVE: Vital Signs: Blood pressure is 137/70 with a heart rate of 76, respirations 18, temperature 98.7 degrees. O2 saturations 98% to 100% on 4 L nasal cannula. Eyes: Pupils are equal and reactive. EOMs are intact. Sclerae anicteric. HEENT: Mucous membranes are moist. Neck: Supple with trachea midline. Cardiovascular: Regular rate and rhythm. S1 and S2 are appreciated. He has no lower extremity edema. Calves are nontender bilaterally. Pulmonary: He has got crackles throughout. Chest rises and falls symmetrically with respiration. Chest wall is nontender to palpation. Gastrointestinal: Abdomen is soft, nontender, nondistended. Bowel sounds in all four quadrants. LABORATORY DATA: There are no labs today. IMPRESSION: An 89-year-old gentleman with 1. Untreated bronchioloalveolar cell carcinoma. 2. Severe pulmonary hypertension. 3. Ischemic cardiomyopathy. 4. Methicillin-resistant Staphylococcus aureus bacteremia with negative transesophageal echocardiogram, is probably related to pneumonia. PLAN: Continue to treat for MRSA pneumonia with at least two weeks of therapy as recommended by Dr. Thomas. Dictated by ZOYA Mcdowell for Guilherme Ramos MD cc: ZOYA Mcdowell MD Alexis R. Penot, MD
--- NOTE | 2019-12-02 17:36 | PROGRESS NOTE ---
DATE: 12/02/2019 SUBJECTIVE: The patient has no major complaints. OBJECTIVE: Blood pressure is 146/73, heart rate of 83, respiratory rate of 18, temperature 97.9 degrees.Cardiovascular: Regular rate and rhythm. Pulmonary: Bilateral breath sounds. Clear to auscultation. GI: Was soft, nontender, nondistended. Bowel sounds are positive. White count 14, hemoglobin 9 and hematocrit 31, platelets 187,000. Potassium is 3.4. CA 2.4. PROBLEM LIST: 1. Methicillin-resistant Staphylococcus aureus bacteremia. We will continue antibiotics. If his blood cultures are negative Thursday, they are still positive. He is persistently bacteremic. He has had 3 sets now so we are not ready to do that. I will talk to the family. They have discussed about hospice issues so we will continue to follow that. His Vancomycin may be a little I do not know subtherapeutic. His random vancomycin level from yesterday was only 7.9, which we really looking at Vancomycin levels around 10 to 15 of possible, but he is persistently bacteremic, so I will not check blood cultures till Thursday. He is on rifampin. We will continue to follow. 2. Bronchioalveolar carcinoma. We are aware. The family wants him to go home with hospice. I do not know what we are going to do about antibiotics though because he will need at least 2 weeks of antibiotics. If we stop the antibiotics and the family is okay with that, then we will go from there, so we will work on hospice, and they are going to evaluate and admit him. We will go from there end dictation. cc: Ghulam Thomas MD
[2019-12-02 17:49] LABS: BASO# 0.02 X1000 (0.0-0.2); BASO% 0.1 % (0.0-0.8); EOS# 0.33 X1000 (0.0-0.7); HEMATOCRIT 34.9 % (42.0-52.0); HEMOGLOBIN 10.9 g/dL (14.0-18.0); IMM GRAN# 0.08 X1000 (0.0-0.04); IMM GRAN% 0.5 % (0.0-0.5); LYMPH# 0.65 X1000 (1.2-3.4); MCH 27.5 PG (27-31); MCHC 31.2 g/dL (33-37); MCV 88.1 FL (81-99); MONO# 1.08 X1000 (0.11-0.59); MONO% 6.6 % (1.7-9.3); MPV 11.1 FL (7.4-10.4); NEUT# 14.15 X1000 (1.4-6.5); NEUT% 86.8 % (42.2-75.2); PLT 230 X1000 (130-400); RBC 3.96 XMIL (4.7-6.1); RDW 17.3 % (11.5-14.5); WBC 16.31 X1000 (4.8-10.8)
[2019-12-02] MEDS: NS IV SCH (18:01)
[2019-12-02] MEDS: VANCOMYCIN IV SCH (18:01)
[2019-12-02 18:09] LABS: AGAP 10; BUN 23 mg/dL (8-22); CALCIUM 8.4 mg/dL (8.8-10.2); CHLORIDE 105 mmol/L (98-107); COSMO 289; CREATININE 1.1 mg/dL (0.7-1.2); ESTIMATED GFR > 60; GLUCOSE 211 mg/dL (70-104); POTASSIUM 3.5 mmol/L (3.5-5.1); SODIUM 140 mmol/L (136-145); TCO2 25 mmol/L (25-35)
[2019-12-02 18:10] LABS: BANDS 5 % (0-1); LYMPHS 4 % (21-51); SEGS 91 % (42-75)
[2019-12-02 18:11] LABS: ANISOCYTOSIS 3+; HYPOCHROM 2+
[2019-12-03] MEDS: PERCOCET-10 PO PRN ×2 (04:20→20:18)
[2019-12-03] MEDS: RIFAMPIN PO SCH (08:54)
[2019-12-03] MEDS: PROTONIX PO SCH (08:54)
[2019-12-03] MEDS: ELIQUIS PO SCH ×2 (08:54→20:18)
[2019-12-03] MEDS: ZOLOFT PO SCH (08:54)
[2019-12-03] MEDS: FERROUS SULFATE PO SCH ×2 (08:54→20:18)
--- NOTE | 2019-12-03 14:16 | PULMONOLOGY PROGRESS NOTE ---
DATE: 12/03/2019 SUBJECTIVE: The patient is awake and alert. He is sitting up on the bedside. He states that he is doing pretty good today. OBJECTIVE: Vital Signs: Blood pressure is 133/79 with a heart rate of 63, respirations are 16, temperature is 97.7 degrees with O2 saturations 96 to 97 percent on 4 L nasal cannula. Cardiovascular: Regular rate and rhythm. S1 and S2 appreciated. Pulmonary: Bibasilar crackles with decreased breath sounds on the right. Chest rises and falls symmetric respiration. Gastrointestinal: Abdomen soft, nontender, nondistended with bowel sounds in all 4 quadrants. IMPRESSION: This is an 89-year-old gentleman with 1. Untreated bronchioalveolar cell carcinoma. 2. Severe pulmonary hypertension. 3. Ischemic cardiomyopathy. 4. Methicillin-resistant Staphylococcus aureus bacteremia with negative transesophageal echocardiogram. This is probably related to pneumonia. PLAN: 1. Will continue antibiotic therapy. 2. Dr. Thomas is discussing the patient going home on hospice with family members. This is pending. Dictated by ZOYA Mcdowell for Guilherme Ramos MD cc: ZOYA Mcdowell MD Alexis R. Penot, MD
[2019-12-03] MEDS: VANCOMYCIN IV SCH (19:14)
[2019-12-03] MEDS: NS IV SCH (19:14)
--- NOTE | 2019-12-03 20:10 | PROGRESS NOTE ---
DATE: 12/03/2019 SUBJECTIVE: The patient has no major complaints. OBJECTIVE: Vital Signs: Blood pressure 114/72, heart rate of 77, respiratory rate of 14, temperature 98.8, saturation 98% on 2 L. Cardiovascular: Regular rate and rhythm. Pulmonary: Bilateral breath sounds. Clear to auscultation. GI: Soft, nontender, nondistended. Bowel sounds are positive. LABORATORY: White count is 16, hemoglobin and hematocrit 10 and 34, platelets 230. Basic was normal. PROBLEM LIST: 1. Methicillin-resistant Staphylococcus aureus bacteremia. He has persistent bacteremia despite adequate treatment. He is on vancomycin. He is on Rifampin, and I cannot get his blood clear enough to put a line in for antibiotics, so we will discuss with the family. It looks like they were already on board with hospice. I have never really pursued hospice in the setting of infection we cannot control, but it is entirely possible. At this point he now he is probably going to need 4 to 6 weeks of IV antibiotics, but I do not think we are going to be able to do that and hospice, so we will have to consider what is going on. 2. Besides that, his second problem is bronchioalveolar cancer. Now Hematology-Oncology has been consulted, and they are I think basically saying this is a poor prognosis issue, and that hospice is appropriate. 3. Atrial fibrillation. We will continue Eliquis and monitor. He is already a DO NOT RESUSCITATE. DISPOSITION: Pending his clinical status. cc: Ghulam Thomas MD
[2019-12-04] MEDS: PERCOCET-10 PO PRN ×4 (04:09→21:38)
--- NOTE | 2019-12-04 08:07 | Diag Imaging Result Doc PS360 ---
EXAM: CHEST-PORTABLE INDICATION: dyspnea TECHNIQUE: One view COMPARISON: 12/01/2019 FINDINGS: The dense opacification at the right upper lung zone is unchanged. There is stable interstitial thickening suggesting edema bilaterally. No new consolidation is identified. There is stable cardiomegaly. IMPRESSION: Stable chest. Electronically signed by Quintin Mcmahon 12/04/2019 8:04 AM
[2019-12-04] MEDS: ZOLOFT PO SCH (08:21)
[2019-12-04] MEDS: PROTONIX PO SCH (08:21)
[2019-12-04] MEDS: ELIQUIS PO SCH ×2 (08:22→21:38)
[2019-12-04] MEDS: RIFAMPIN PO SCH (08:22)
[2019-12-04] MEDS: FERROUS SULFATE PO SCH ×2 (08:22→21:38)
[2019-12-04] MEDS: ZOFRAN IV PRN (09:25)
--- NOTE | 2019-12-04 18:00 | PULMONOLOGY PROGRESS NOTE ---
DATE: 12/04/2019 SUBJECTIVE: Mr. Leong is lying in the bed. He states that he just feels bad all over. He has no specific complaints. OBJECTIVE: Vital signs: Blood pressure is 132/80 with heart rate of 68, respirations are 16, temperature is 99.2 degrees with O2 saturations 94 to 95 percent on 5 L nasal cannula. Cardiovascular: Regular rate and rhythm. S1, S2 appreciated. Pulmonary: He has bibasilar crackles with decreased breath sounds with right greater than left. Chest rises and falls symmetric with respiration. Gastrointestinal: Abdomen is soft, nontender, nondistended with bowel sounds in all 4 quadrants. Neurologic: He is alert. He is oriented. IMPRESSION: This is an 89-year-old gentleman with 1. Untreated bronchioloalveolar cell carcinoma. 2. Severe pulmonary hypertension. 3. Ischemic cardiomyopathy. 4. Methicillin-resistant Staphylococcus aureus bacteremia with negative transesophageal echocardiogram. PLAN: 1. We will continue with antibiotic therapy. 2. Continue with pain control. 3. Continue gastric acid suppression with Protonix. CODE STATUS: The patient is a DNR level 1. Dictated by ZOYA Mcdowell for Guilherme Ramos MD cc: ZOYA Mcdowell MD Alexis R. Penot, MD
[2019-12-04] MEDS: VANCOMYCIN IV SCH (19:27)
[2019-12-04] MEDS: NS IV SCH (19:27)
--- NOTE | 2019-12-04 19:54 | PROGRESS NOTE ---
DATE: 12/04/2019 SUBJECTIVE: He is looking okay. No major complaints. OBJECTIVE: Blood pressure is 145/77, heart rate of 68, respiratory rate of 20, temperature degrees 99.2, 94 percent on 2 L.Cardiovascular: Regular rate and rhythm. Pulmonary: Bilateral breath sounds. Clear to auscultation. GI: Was soft, nontender, nondistended. Bowel sounds were positive. Extremity Exam: No clubbing or cyanosis. Lymphatic exam: No peripheral edema. Neurological: Nonfocal. LABORATORY DATA: His blood cultures are still positive. That is 3 sets. He has been on vancomycin and for the 3rd set he has been on rifampin , , all positive for methicillin-resistant Staphylococcus aureus. He has no source, possibly pneumonia, but unlikely, but we cannot clear him. Independent of the that setting, he has got bronchioloalveolar cancer that he did not want treatment for which has gotten worse and most likely just needs hospice. So, we are going to set that up. I think the family is planning to do home hospice thankfully, so we will coordinate with them tomorrow about that. He is already a DNR 1. He does not seem to be deteriorating rapidly by any means, but again we are probably holding back the tide by giving him antibiotics. I will switch him to daptomycin, which again in my opinion is an inferior drug to vancomycin but vancomycin does not seem to be really doing anything, so we will see if this may change things a bit, but again I think the short-term prognosis is poor in the setting of poor long-term prognosis. So, we will see how he does. cc: Ghulam Thomas MD
[2019-12-04] MEDS: CUBICIN 600 MG in NS 100 ML IV SCH (22:10)
[2019-12-05] MEDS: PERCOCET-10 PO PRN ×3 (04:12→17:42)
[2019-12-05] MEDS: RIFAMPIN PO SCH (10:27)
[2019-12-05] MEDS: PROTONIX PO SCH (10:27)
[2019-12-05] MEDS: ZOLOFT PO SCH (10:27)
[2019-12-05] MEDS: ELIQUIS PO SCH ×2 (10:27→20:44)
[2019-12-05] MEDS: FERROUS SULFATE PO SCH ×2 (10:27→20:44)
[2019-12-05] MEDS: CUBICIN 600 MG in NS 100 ML IV SCH (22:05)
--- NOTE | 2019-12-05 23:19 | PULMONOLOGY PROGRESS NOTE ---
DATE: 12/05/2019 SUBJECTIVE: The patient is awake and alert. He is without specific complaints. OBJECTIVE: Vital Signs: The patient has been afebrile for the last 24 hours. Blood pressure 126/77, heart rate 65, respiratory rate 20, oxygen saturation 100%. HEENT: Pupils are equal and reactive. Oropharynx appears clear. Neck: Supple. Chest: Occasional rhonchi bilaterally with decreased breath sounds right apex. Cardiac exam: S1, S2. Abdomen: Soft. Extremities: Reveal 1+ edema. LABORATORIES: No new chemistries, CBC, or cultures today. IMPRESSION: An 89 year old with: 1. Untreated bronchoalveolar cell carcinoma. 2. Severe pulmonary hypertension. 3. Ischemic cardiomyopathy. 4. Ongoing methicillin-resistant Staphylococcus aureus bacteremia despite negative transesophageal echocardiogram. DISCUSSION: An 89 year old problems outlined above. His prognosis is poor. He is currently being evaluated by hospice for discharge. RECOMMENDATIONS: 1. Agree with plans for hospice discharge. We consider leaving him on chronic suppressive antibiotics such as doxycycline or Bactrim. 2. Continue pain control. 3. Continue gastric acid suppression. cc: Guilherme Ramos MD
--- NOTE | 2019-12-06 00:25 | PROGRESS NOTE ---
DATE: 12/05/2019 SUBJECTIVE: The patient has no major complaints. OBJECTIVE: Blood pressure is 149/81, heart rate of 73, respiratory of 18, temperature 98.7 degrees.Cardiovascular: Regular rate and rhythm. Pulmonary: Bilateral breath sounds clear to auscultation. GI: Soft, nontender, nondistended. Bowel sounds are positive. Extremities: No clubbing or cyanosis. Lymphatic exam: No peripheral edema. Neurological: Nonfocal. LABORATORY DATA: White count 16. No new data today. PROBLEM LIST: 1. Methicillin resistant Staphylococcus aureus bacteremia with persistent positive blood cultures. We will switch him to daptomycin in addition to rifampin and follow. 2. Bronchioalveolar lung cancer. He does not want to pursue treatment, so we will continue palliative care measures. DISPOSITION: I think if he is stable, he may be able to go home soon pursuing home hospice. We have discussed the case with his daughter and we will wait for follow-up. cc: Ghulam Thomas MD
[2019-12-06] MEDS: PERCOCET-10 PO PRN ×2 (02:03→09:34)
[2019-12-06 06:47] LABS: BASO# 0.01 X1000 (0.0-0.2); BASO% 0.1 % (0.0-0.8); EOS% 3.1 % (0.0-10.0); HEMATOCRIT 31.1 % (42.0-52.0); HEMOGLOBIN 9.6 g/dL (14.0-18.0); IMM GRAN# 0.03 X1000 (0.0-0.04); IMM GRAN% 0.3 % (0.0-0.5); LYMPH# 0.55 X1000 (1.2-3.4); LYMPH% 5.7 % (20.5-51.1); MCH 27.4 PG (27-31); MCHC 30.9 g/dL (33-37); MCV 88.9 FL (81-99); MONO# 0.67 X1000 (0.11-0.59); MPV 10.5 FL (7.4-10.4); NEUT# 8.02 X1000 (1.4-6.5); NEUT% 83.8 % (42.2-75.2); PLT 242 X1000 (130-400); RDW 17.7 % (11.5-14.5); WBC 9.58 X1000 (4.8-10.8)
[2019-12-06 06:54] LABS: INR 1.08; PROTIME 14.2 Seconds (11.0-16.0)
[2019-12-06 07:12] LABS: AGAP 9; BUN 14 mg/dL (8-22); CALCIUM 8.8 mg/dL (8.8-10.2); CHLORIDE 100 mmol/L (98-107); COSMO 278; CREATININE 0.9 mg/dL (0.7-1.2); ESTIMATED GFR > 60; GLUCOSE 104 mg/dL (70-104); POTASSIUM 4.7 mmol/L (3.5-5.1); SODIUM 139 mmol/L (136-145); TCO2 30 mmol/L (25-35)
[2019-12-06] MEDS ORDERED: NS 250 ML ONE (09:25)
[2019-12-06] MEDS: ELIQUIS PO SCH (09:34)
[2019-12-06] MEDS: PROTONIX PO SCH (09:34)
[2019-12-06] MEDS: ZOLOFT PO SCH (09:34)
[2019-12-06] MEDS: FERROUS SULFATE PO SCH (09:34)
[2019-12-06] MEDS: RIFAMPIN PO SCH (09:34)
[2019-12-06] MEDS: DILAUDID IV PRN ×2 (11:44→15:52)
[2019-12-06 11:54] VITALS: BP 138/81
--- NOTE | 2019-12-06 17:42 | DISCHARGE SUMMARY ---
ADMISSION DATE: 11/27/2019 DISCHARGE DATE: 12/06/2019 DISCHARGE DIAGNOSES: 1. Methicillin-resistant Staphylococcus aureus bacteremia. 2. Bronchioalveolar lung cancer. CONSULTATIONS: Pulmonary, Dr. Ramos. Cardiology, Dr. Ray. Hematology/Oncology, Dr. Galaviz. HISTORY AND HOSPITAL COURSE: This is an 89-year-old male with bronchioalveolar cancer. He refuses treatment. He has atrial fibrillation and CHF. He presented with chest pain, temperature and sepsis. He was placed on vancomycin and Zosyn. His first blood culture grew out MRSA two out of two bottles, that was on 11/27/2019. Pulmonary was consulted because of some respiratory insufficiency. Echocardiogram was ordered to rule out endocarditis, but there was an abnormality on it, so they went ahead and went to [facility] and Cardiology was involved and adjusted his medications. [facility], fortunately, on 11/30/2019 was negative for vegetation. EF was 45%. He had a prolapsed mitral valve. Hematology/Oncology was consulted because of his cancer, that was per request of the daughter. It was felt to be a slow-growing cancer. He did not want treatment, but it had expanded. It was felt most likely that MRSA could be from pneumonia and related to his cancer. He never cleared his blood cultures. He had two more sets drawn. Despite the addition of rifampin there have been positive blood cultures on the 11/28/2019 and positive blood cultures on 12/01/2019. After discussion with the family, they decided to pursue hospice and he was discharged home with hospice on 12/06/2019 after discussion that he may need six weeks or eight weeks of IV antibiotics. Per Pulmonary, I think it is reasonable to try oral antibiotics although I doubt it is going to be very effective because his IV antibiotics were not effective, even with the addition of rifampin. DISCHARGE MEDICATIONS: Simvastatin 20, Eliquis 2.5 b.i.d., Imdur 30 b.i.d., Protonix 40 daily, sertraline 50 daily, Toprol-XL 25 daily, Ambien, Cardizem CD 180 daily, losartan 50 b.i.d., doxycycline 100 b.i.d. for 30 days, Icar C daily, Lasix 40 daily, Milk of Magnesia, MSIR 15 every four hours, amlodipine 5 b.i.d. DISCHARGE CONDITION: Stable. TIME SPENT FOR DISCHARGE: 32 minutes. cc: MD Semaj Patel MD Micah A. Howard, MD
--- NOTE | 2019-12-06 19:42 | PULMONOLOGY PROGRESS NOTE ---
DATE: 12/06/2019 SUBJECTIVE: The patient is awake and alert. He appears comfortable. OBJECTIVE: The patient has been afebrile for the last 24 hours. Blood pressure 138/81, heart rate 71, respiratory rate 16, oxygen saturation 100% on nasal cannula.HEENT: Pupils are equal and reactive. Oropharynx appears clear. Neck: Supple. Chest: Diminished breath sounds right apex. Cardiac: Exam S1, S2. Abdomen: Soft. Extremities: Reveal trace edema. IMPRESSION: An 89-year-old with 1. Advanced untreated bronchoalveolar cell carcinoma. 2. Severe pulmonary hypertension. 3. Ischemic cardiomyopathy. 4. Methicillin-resistant Staphylococcus aureus bacteremia. PLAN: 1. Anticipate discharge home with hospice. I agree with plans for discharge home. 2. Doxycycline. 3. Continue pain control. 4. Continue gastric acid suppression. cc: Guilherme Ramos MD
== END 2019-12-06 17:57 | disposition hospice, home (50) | DRG 871 ==
LOC: SUPCPDRO → ED 10:55 → EDIPHOLD 16:08 → SUATTDRO 16:08 → 3N 19:03
PROVIDERS: ATTEND Internal Medicine